=== PATIENT | female | born 1955 | race Caucasian/White ===

== ENCOUNTER 2019-01-11 14:57 | Inpatient (IN) | payer OTHER ==
[2019-01-11] MEDS ORDERED: SODIUM CHLORIDE 1,000 ML IV STA (15:11)
[2019-01-11] MEDS ORDERED: ONDANSETRON 4 MG/2 ML VIAL IVPUSH ONE (15:11)
--- NOTE | 2019-01-11 15:11 | PDOC ---
Rapid Medical Evaluation Time Seen by Provider: 01/11/19 15:08 Medical Evaluation: Allergies Allergy/AdvReac Type Severity Reaction Status Date / Time No Known Allergies Allergy Verified 05/31/13 01:09 01/11/19 15:09 CC: RLQ pain x "many months." Took ?abx without improvement. Sent BY PMD for admission PE: VSS. AF. Abd SNTND. Eating in triage. Orders: abd w/u Patient will proceed to ED for continued evaluation. Discharge Disposition - Diagnosis Abdominal pain - Referrals - Patient Instructions - Post Discharge Activity
[2019-01-11 15:12] VITALS: BMI 24.4
[2019-01-11] MEDS ORDERED: CEFTRIAXONE 1 GM in DEXTROSE 5%-WATER - 50 ML IVPB ONE ×2 (17:01→21:00)
[2019-01-11] MEDS ORDERED: ONDANSETRON 4 MG/2 ML VIAL ONE (17:06)
[2019-01-11] MEDS ORDERED: CEFTRIAXONE 1 GM/50 ML BAG ONE ×2 (17:07→21:45)
[2019-01-11 17:28] LABS: BASO % 0.6 % (0-2.0); EOS % 2.8 % (0-4.5); HEMATOCRIT 32.4 % (32.4-45.2); HEMOGLOBIN 11.2 GM/dL (10.7-15.3); LYMPH % 36.9 % (8-40); MCH 31.6 pg (25.7-33.7); MCHC 34.4 g/dl (32.0-36.0); MEAN CELL VOLUME 91.8 fl (80-96); MEAN PLT VOLUME 8.6 fl (7.5-11.1); MONO % 6.5 % (3.8-10.2); NEUT % 53.2 % (42.8-82.8); PLATELET COUNT 181 K/MM3 (134-434); RBC 3.53 M/mm3 (3.60-5.2); RDW 13.5 % (11.6-15.6); WHITE BLOOD COUNT 6.2 K/mm3 (4.0-10.0)
[2019-01-11 17:40] LABS: ALBUMIN 4.3 g/dl (3.4-5.0); BILIRUBIN,TOTAL 0.4 mg/dL (0.2-1); BLOOD UREA NITROGEN 27.8 mg/dL (7-18); CALCIUM 9.3 mg/dL (8.5-10.1); CREATININE 1.2 mg/dL (0.55-1.3); POTASSIUM 4.4 mmol/L (3.5-5.1); TOT PROT 7.7 g/dl (6.4-8.2)
--- NOTE | 2019-01-11 18:10 | PDOC ---
History of Present Illness - General Chief Complaint: Pain, Acute Stated Complaint: RT ABD PAIN Time Seen by Provider: 01/11/19 15:08 History Source: Patient Exam Limitations: No Limitations - History of Present Illness Travel History: No Initial Comments: 01/11/19 18:02 63-year-old female sent in by Dr. Iqbal for abdominal pain, recurrent UTIs, and dysuria for the past few weeks unrelieved with antibiotics. As per patient patient had urine cultures that show contamination and has had no relief of urinary symptoms. Patient states was told she has a hernia near her suprapubic incision secondary to a hysterectomy years ago but otherwise denies GI history. Timing/Duration: reports: intermittent Quality: reports: mild, moderate, cramping Abdominal Pain Onset Location: reports: suprapubic Pain Radiation: reports: RLQ, LLQ Activities at Onset: reports: none Aggravating Factors: improves with: None Alleviating Factors: improves with: None Past History - Travel Traveled outside of the country in the last 30 days: No Close contact w/someone who was outside of country & ill: No - Past Medical History Allergies/Adverse Reactions: Allergies Allergy/AdvReac Type Severity Reaction Status Date / Time No Known Allergies Allergy Verified 01/11/19 15:12 Home Medications: Ambulatory Orders Glyburide 5 mg PO BID 01/16/13 Meclizine HCl [Antivert -] 12.5 mg PO TID #10 tablet 01/16/13 Naproxen [Naprosyn] 500 mg PO BID PRN 01/16/13 Ramipril 5 mg PO DAILY 01/16/13 Simvastatin [Zocor] 20 mg PO HS 01/16/13 metFORMIN HCL [Glucophage] 1,000 mg PO BID 01/16/13 Hydrocodone Bit/Acetaminophen [Vicodin 5-300mg Tablet] 1 - 2 tab PO Q8H #15 tablet 05/31/13 Cardiac Disorders: Yes COPD: No Diabetes: Yes HTN: Yes Hypercholesterolemia: Yes - Surgical History Cholecystectomy: Yes - Suicide/Smoking/Psychosocial Hx Smoking Status: Yes Smoking History: Current every day smoker Have you smoked in the past 12 months: No Number of Cigarettes Smoked Daily: 15 Information on smoking cessation initiated: No Hx Alcohol Use: No Drug/Substance Use Hx: No Substance Use Type: None Patient Lives Alone: No Lives with/in: spouse/SO Review of Systems - Review of Systems Able to Perform ROS?: Yes Constitutional: No: Symptoms Reported HEENTM: No: Symptoms Reported Respiratory: No: Symptoms reported Cardiac (ROS): No: Symptoms Reported ABD/GI: Yes: Nausea, Abdominal cramping : Yes: Dysuria Musculoskeletal: No: Symptoms Reported Integumentary: No: Symptoms Reported Neurological: No: Symptoms reported Endocrine: No: Symptoms Reported Hematologic/Lymphatic: No: Symptoms Reported *Physical Exam - Vital Signs Last Vital Signs Temp Pulse Resp BP Pulse Ox 98.5 F 70 16 110/63 98 01/11/19 15:09 01/11/19 15:09 01/11/19 15:09 01/11/19 15:09 01/11/19 15:09 - Physical Exam General Appearance: Yes: Nourished, Appropriately Dressed. No: Apparent Distress HEENT: positive: EOMI, CARLEE. negative: Pale Conjunctivae Neck: positive: Supple Respiratory/Chest: positive: Lungs Clear, Normal Breath Sounds. negative: Respiratory Distress, Accessory Muscle Use Cardiovascular: positive: Regular Rhythm, Regular Rate. negative: Murmur Gastrointestinal/Abdominal: positive: Soft, Tenderness (right suprapubic right lower quadrant mid suprapubic and mild left lower quadrant) Musculoskeletal: negative: CVA Tenderness Extremity: positive: Normal Inspection Integumentary: positive: Normal Color, Warm, Moist Neurologic: positive: Motor Strength 5/5 (ambulatory) ED Treatment Course - LABORATORY CBC & Chemistry Diagram: 01/12/19 06:54 01/12/19 06:54 - ADDITIONAL ORDERS Additional order review: Laboratory Results 01/11/19 16:47 Sodium 139 Potassium 4.4 Chloride 108 H Carbon Dioxide 23 Anion Gap 8 BUN 27.8 H Creatinine 1.2 Est GFR (CKD-EPI)AfAm 54.92 Est GFR (CKD-EPI)NonAf 47.39 Random Glucose 153 H Calcium 9.3 Total Bilirubin 0.4 AST 21 ALT 23 Alkaline Phosphatase 57 Total Protein 7.7 Albumin 4.3 Lipase 299 01/11/19 16:47 RBC 3.53 L MCV 91.8 MCHC 34.4 RDW 13.5 MPV 8.6 Neutrophils % 53.2 D Lymphocytes % 36.9 D Monocytes % 6.5 Eosinophils % 2.8 D Basophils % 0.6 - RADIOLOGY Radiology Studies Ordered: Category Date Time Status ABDOMEN & PELVIS CT W/O CONTR [CT] Stat CT Scan 01/11/19 17:26 Ordered PELVIC / BLADDER US [US] Stat Ultrasound 01/11/19 16:59 Ordered Medical Decision Making - Medical Decision Making 01/11/19 17:06 Chief complaint: Recurrent UTI with suprapubic pain and mild dysuria sent in from PCP for workup/admission and imaging Exam: Lower abdominal tenderness greater in the mid suprapubic right lower quadrant and left lower quadrant. No CVA tenderness vital signs stable Plan: Labs, urine, IV ceftriaxone, urine culture, pelvic ultrasound and abdominal CT ordered 01/11/19 18:11 Laboratory Tests 01/11/19 01/11/19 16:47 16:47 WBC 6.2 Hgb 11.2 Hct 32.4 D Neutrophils % 53.2 D Sodium 139 Potassium 4.4 Chloride 108 H Carbon Dioxide 23 Anion Gap 8 BUN 27.8 H Creatinine 1.2 Random Glucose 153 H AST 21 ALT 23 Lipase 299 Spoke to and is aware of patient's ED arrival and plan. Awaiting UA collection and imaging 01/11/19 19:02 Ultrasound shows no obvious free intraperitoneal fluid within the lower pelvis. Evaluation was limited on ultrasound since patient was unable to maintain a distended urinary bladder. *DC/Admit/Observation/Transfer Diagnosis at time of Disposition: Hydronephrosis, right, MDRO (multiple drug resistant organisms) resistance, UTI (urinary tract infection) Abdominal pain Qualifiers: Abdominal location: unspecified location Qualified Code(s): R10.9 - Unspecified abdominal pain - Referrals - Patient Instructions - Post Discharge Activity
[2019-01-11] MEDS ORDERED: KETOROLAC TROMETHAMINE 30 MG/1 ML VIAL IVPUSH ONE (18:11)
[2019-01-11] MEDS ORDERED: KETOROLAC TROMETHAMINE 30 MG/1 ML VIAL ONE (18:13)
[2019-01-11 20:09] LABS: EPI CELLS 3.4 /HPF (0-5/HPF); HYALINE CASTS 5 /lpf (0-8); URINE APPEARANCE CLOUDY; URINE BILIRUBIN NEGATIVE (NEGATIVE); URINE COLOR YELLOW; URINE GLUCOSE (UA) NEGATIVE (NEGATIVE); URINE KETONE NEGATIVE (NEGATIVE); URINE LEUK ESTERASE 1+ (NEGATIVE); URINE NITRITE NEGATIVE (NEGATIVE); URINE PROTEIN TRACE (NEGATIVE); URINE RBC 299 /hpf (0-4); URINE UROBILINOGEN 0.2 mg/dL (0.2-1.0); URINE WBC 14 /hpf (0-5)
--- NOTE | 2019-01-11 20:22 | PDOC ---
*Physical Exam - Vital Signs Last Vital Signs Temp Pulse Resp BP Pulse Ox 98.6 F 60 20 130/88 99 01/11/19 19:52 01/11/19 19:52 01/11/19 19:52 01/11/19 19:52 01/11/19 19:52 - Physical Exam General Appearance: Yes: Appropriately Dressed ED Treatment Course - LABORATORY CBC & Chemistry Diagram: 01/11/19 16:47 01/11/19 16:47 - ADDITIONAL ORDERS Additional order review: Laboratory Results 01/11/19 01/11/19 19:32 16:47 Sodium 139 Potassium 4.4 Chloride 108 H Carbon Dioxide 23 Anion Gap 8 BUN 27.8 H Creatinine 1.2 Est GFR (CKD-EPI)AfAm 54.92 Est GFR (CKD-EPI)NonAf 47.39 Random Glucose 153 H Calcium 9.3 Total Bilirubin 0.4 AST 21 ALT 23 Alkaline Phosphatase 57 Total Protein 7.7 Albumin 4.3 Lipase 299 Urine Color Yellow Urine Appearance Cloudy Urine pH 5.0 Ur Specific [place] 1.016 Urine Protein Trace Urine Glucose (UA) Negative Urine Ketones Negative Urine Blood 3+ H Urine Nitrite Negative Urine Bilirubin Negative Urine Urobilinogen 0.2 Ur Leukocyte Esterase 1+ H Urine WBC (Auto) 14 Urine RBC (Auto) 299 Urine Casts (Auto) 5 U Epithel Cells (Auto) 3.4 Urine Bacteria (Auto) 1.0 01/11/19 16:47 RBC 3.53 L MCV 91.8 MCHC 34.4 RDW 13.5 MPV 8.6 Neutrophils % 53.2 D Lymphocytes % 36.9 D Monocytes % 6.5 Eosinophils % 2.8 D Basophils % 0.6 - Medications Given in the ED: ED Medications Discontinued Medications Generic Name Dose Route Start Last Admin Trade Name Freq PRN Reason Stop Dose Admin Sodium Chloride 1,000 mls @ 1,000 mls/hr 01/11/19 15:11 01/11/19 18:15 Normal Saline - IV 01/11/19 16:10 1,000 mls/hr ASDIR STA Administration Ceftriaxone Sodium 1 gm/ 50 mls @ 100 mls/hr 01/11/19 17:01 01/11/19 18:15 Dextrose IVPB 01/11/19 17:30 100 mls/hr ONCE ONE Administration Ketorolac Tromethamine 30 mg 01/11/19 18:11 01/11/19 18:15 Toradol Injection - IVPUSH 01/11/19 18:12 30 mg ONCE ONE Administration Ondansetron HCl 4 mg 01/11/19 15:11 01/11/19 18:15 Zofran Injection IVPUSH 01/11/19 15:12 4 mg ONCE ONE Administration Medical Decision Making - Medical Decision Making 01/11/19 20:14 A: right hydronephrosis. 01/11/19 20:[address] Iqbal PCP . recommends admitting for MDR UTI, hydronephrosis. needs iD and urology consult. patient signed out to Marline CORTÉS *DC/Admit/Observation/Transfer Diagnosis at time of Disposition: Hydronephrosis, right, MDRO (multiple drug resistant organisms) resistance Abdominal pain Qualifiers: Abdominal location: unspecified location Qualified Code(s): R10.9 - Unspecified abdominal pain UTI (urinary tract infection) Qualifiers: Urinary tract infection type: acute cystitis Hematuria presence: with hematuria Qualified Code(s): N30.01 - Acute cystitis with hematuria - Discharge Dispostion Decision to Admit order: Yes - Referrals - Patient Instructions - Post Discharge Activity
--- NOTE | 2019-01-11 21:28 | HP ---
CHIEF COMPLAINT: suprapubic pain and burning on urination PCP:Dr. Diego HISTORY OF PRESENT ILLNESS: 63 year old female with history of diabetes mellitus(on oral hypoglycemics), hypertension and frequent UTI's with multiple drug resistant to organisms who was seen by Dr. Diego today for suprapubic pain and burning on urination. She denied fever, chest pain or shortness of breath. She was referred to the ER. UA showed cloudy urine, 1+ leukoesterase, 3+ blood, and negative nitrite. Urine and blood cultures pending. She is currently afebrile and blood pressure is normotensive. CT scan of abdomen demonstrated hydronephrosis. Labs notable for a normal WBC and renal studies. She received 1 gm of IV Ceftriaxone and reported symptoms have improved. She is being admitted for further medical management with consultations made to Urology and Infectious Diseases. Recent Travel:denies PAST MEDICAL HISTORY: diabetes mellitus hypertension frequent UTI's with MDR PAST SURGICAL HISTORY: none Social History: Smoking:no Alcohol:no Drugs:no Family History: noncontributory Allergies No Known Allergies Allergy (Verified 01/11/19 15:12) HOME MEDICATIONS: Home Medications Medication Instructions Recorded Glyburide 5 mg PO BID 01/16/13 Meclizine HCl [Antivert -] 12.5 mg PO TID #10 tablet 01/16/13 Naproxen [Naprosyn] 500 mg PO BID PRN 01/16/13 Ramipril 5 mg PO DAILY 01/16/13 Simvastatin [Zocor] 20 mg PO HS 01/16/13 metFORMIN HCL [Glucophage] 1,000 mg PO BID 01/16/13 Hydrocodone Bit/Acetaminophen 1 - 2 tab PO Q8H #15 tablet 05/31/13 [Vicodin 5-300mg Tablet] REVIEW OF SYSTEMS CONSTITUTIONAL: Absent: fever, chills, diaphoresis, generalized weakness, malaise, loss of appetite, weight change HEENT: Absent: rhinorrhea, nasal congestion, throat pain, throat swelling, difficulty swallowing, mouth swelling, ear pain, eye pain, visual changes CARDIOVASCULAR: Absent: chest pain, syncope, palpitations, irregular heart rate, lightheadedness , peripheral edema RESPIRATORY: Absent: cough, shortness of breath, dyspnea with exertion, orthopnea, wheezing, stridor, hemoptysis GASTROINTESTINAL: Absent: abdominal pain, abdominal distension, nausea, vomiting, diarrhea, constipation, melena, hematochezia GENITOURINARY: Absent: dysuria, suprapubic pain, frequency, urgency, hesitancy, hematuria, flank pain, genital pain MUSCULOSKELETAL: Absent: myalgia, arthralgia, joint swelling, back pain, neck pain SKIN: Absent: rash, itching, pallor HEMATOLOGIC/IMMUNOLOGIC: Absent: easy bleeding, easy bruising, lymphadenopathy, frequent infections ENDOCRINE: Absent: unexplained weight gain, unexplained weight loss, heat intolerance, cold intolerance NEUROLOGIC: Absent: headache, focal weakness or paresthesias, dizziness, unsteady gait, seizure, mental status changes, bladder or bowel incontinence PSYCHIATRIC: Absent: anxiety, depression, suicidal or homicidal ideation, hallucinations. PHYSICAL EXAMINATION Vital Signs - 24 hr 01/11/19 01/11/19 15:09 19:52 Temperature 98.5 F 98.6 F Pulse Rate 70 Pulse Rate [ 60 Left Radial] Respiratory 16 20 Rate Blood Pressure 110/63 Blood Pressure 130/88 [Left Arm] O2 Sat by Pulse 98 99 Oximetry (%) GENERAL: awake alert and fully oriented no acute distress HEAD: normal EYES: pupils equal round and reactive to light extraocular movements intact EARS, NOSE, THROAT: ears normal nares patent oropharynx clear without exudates moist mucous membranes NECK: Normal range of motion, supple without lymphadenopathy, JVD, or masses. LUNGS: breath sounds equal and clear to auscultation bilaterally no wheezes and no crackles no accessory muscle use HEART: regular rate and rhythm normal S1 and S2 ABDOMEN: soft nontender,not distended, normoactive bowel sounds MUSCULOSKELETAL: normal range of motion at all joints. No bony deformities or tenderness. no CVA tenderness UPPER EXTREMITIES: 2+ pulses warm well-perfused no cyanosis no peripheral edema LOWER EXTREMITIES: 2+ pulses warm well-perfused no peripheral edema. NEUROLOGICAL: normal speech PSYCHIATRIC: cooperative good eye contact appropriate mood and affect SKIN: warm dry normal turgor no rashes raised lesion to midsternum noted normal capillary refill Laboratory Results - last 24 hr 01/11/19 01/11/19 01/11/19 16:47 16:47 19:32 WBC 6.2 RBC 3.53 L Hgb 11.2 Hct 32.4 D MCV 91.8 MCH 31.6 MCHC 34.4 RDW 13.5 Plt Count 181 MPV 8.6 Absolute Neuts (auto) 3.3 Neutrophils % 53.2 D Lymphocytes % 36.9 D Monocytes % 6.5 Eosinophils % 2.8 D Basophils % 0.6 Nucleated RBC % 0 Sodium 139 Potassium 4.4 Chloride 108 H Carbon Dioxide 23 Anion Gap 8 BUN 27.8 H Creatinine 1.2 Est GFR (CKD-EPI)AfAm 54.92 Est GFR (CKD-EPI)NonAf 47.39 Random Glucose 153 H Calcium 9.3 Total Bilirubin 0.4 AST 21 ALT 23 Alkaline Phosphatase 57 Total Protein 7.7 Albumin 4.3 Lipase 299 Urine Color Yellow Urine Appearance Cloudy Urine pH 5.0 Ur Specific [place] 1.016 Urine Protein Trace Urine Glucose (UA) Negative Urine Ketones Negative Urine Blood 3+ H Urine Nitrite Negative Urine Bilirubin Negative Urine Urobilinogen 0.2 Ur Leukocyte Esterase 1+ H Urine WBC (Auto) 14 Urine RBC (Auto) 299 Urine Casts (Auto) 5 U Epithel Cells (Auto) 3.4 Urine Bacteria (Auto) 1.0 ASSESSMENT/PLAN: 63 year old female with history of diabetes mellitus, hypertension and frequent UTI's with multiple drug resistant to organisms who presents with suprapubic pain and burning on urination. #1 Symptomatic UTI Workup- UA showed 1+ leukoesterase, 3+ blood, and negative nitrite. Urine and blood cultures pending. She is currently afebrile and blood pressure is normotensive. CT scan of abdomen demonstrated hydronephrosis. Labs notable for a normal WBC and renal studies. She received 1 gm of IV Ceftriaxone and reported symptoms have improved. Continue with IV Ceftriaxone Infectious Disease consulted- Dr. Schneider Urology consulted- Dr. Smooth Holly #2 Hypertension Controlled Continue with ramipril #3 Diabetes Mellitus Accucheks before meals and at bedtime Continue with glipizide and metformin DVT low risk as patient is ambulatory add lovenox 30 mg daily for DVT prophylaxis FEN ADA, low sodium diet Visit type - Emergency Visit Emergency Visit: Yes ED Registration Date: 01/11/19 Care time: The patient presented to the Emergency Department on the above date and was hospitalized for further evaluation of their emergent condition. - New Patient This patient is new to me today: Yes Date on this admission: 01/11/19 - Critical Care Critical Care patient: No
[2019-01-11] MEDS ORDERED: MECLIZINE HCL 12.5 MG TABLET ONE (21:44)
[2019-01-11] MEDS ORDERED: ATORVASTATIN CA 10 MG TABLET (FP) ONE (21:45)
[2019-01-11] MEDS: ATORVASTATIN CA 10 MG TABLET (FP) PO SCH (22:05)
[2019-01-11] MEDS: MECLIZINE HCL 12.5 MG TABLET PO SCH (22:11)
[2019-01-11] MEDS ORDERED: ENOXAPARIN NA (PORCINE) 40 MG/0.4 ML DISP.SYRIN SQ ONE (23:20)
[2019-01-11] MEDS: ENOXAPARIN NA (PORCINE) 40 MG/0.4 ML DISP.SYRIN SQ SCH (23:20)
[2019-01-12] MEDS: MECLIZINE HCL 12.5 MG TABLET PO SCH ×3 (06:18→22:23)
[2019-01-12 07:55] LABS: BLOOD UREA NITROGEN 24.3 mg/dL (7-18); CALCIUM 8.9 mg/dL (8.5-10.1); HEMATOCRIT 27.4 % (32.4-45.2); HEMOGLOBIN 9.5 GM/dL (10.7-15.3); MCH 31.8 pg (25.7-33.7); MCHC 34.7 g/dl (32.0-36.0); MEAN CELL VOLUME 91.7 fl (80-96); MEAN PLT VOLUME 8.8 fl (7.5-11.1); PLATELET COUNT 139 K/MM3 (134-434); POTASSIUM 4.2 mmol/L (3.5-5.1); RBC 2.99 M/mm3 (3.60-5.2); RDW 13.3 % (11.6-15.6); WHITE BLOOD COUNT 4.3 K/mm3 (4.0-10.0)
[2019-01-12] MEDS: ENOXAPARIN NA (PORCINE) 40 MG/0.4 ML DISP.SYRIN SQ SCH (10:31)
[2019-01-12] MEDS: glyBURIDE 5 MG TABLET (UD) PO SCH ×2 (10:32→17:48)
[2019-01-12] MEDS: RAMIPRIL 5 MG CAPSULE (FP) PO SCH (10:33)
[2019-01-12] MEDS: metFORMIN HCL 500 MG TABLET (FP) PO SCH ×2 (10:33→17:48)
--- NOTE | 2019-01-12 14:51 | PN ---
Progress Note, Physician Chief Complaint: UTI Right Hydroureteronephrosis History of Present Illness: Previous notes and events reviewed awake and alert NAD complain of dysuria sts having suprapubic pain but is improving - Current Medication List Current Medications: Active Medications Atorvastatin Calcium (Lipitor -) 10 mg PO HS [facility] Last Admin: 01/11/19 22:05 Dose: 10 mg Enoxaparin Sodium (Lovenox -) 40 mg SQ DAILY [facility] Last Admin: 01/12/19 10:31 Dose: 40 mg Glyburide (Diabeta -) 5 mg PO BIDI [facility] Last Admin: 01/12/19 10:32 Dose: 5 mg Meclizine HCl (Antivert -) 12.5 mg PO TID [facility] Last Admin: 01/12/19 13:40 Dose: Not Given Metformin HCl (Glucophage -) 1,000 mg PO BIDI [facility] Last Admin: 01/12/19 10:33 Dose: 1,000 mg Ramipril (Altace -) 5 mg PO DAILY [facility] Last Admin: 01/12/19 10:33 Dose: 5 mg - Objective Vital Signs: Vital Signs Temperature 98.1 F 01/12/19 13:35 Pulse Rate 65 01/12/19 13:35 Respiratory Rate 20 01/12/19 13:35 Blood Pressure 118/56 L 01/12/19 13:35 O2 Sat by Pulse Oximetry (%) 98 01/12/19 13:35 Constitutional: Yes: No Distress, Calm Eyes: Yes: Conjunctiva Clear HENT: Yes: Atraumatic Cardiovascular: Yes: Regular Rate and Rhythm Respiratory: Yes: Regular, CTA Bilaterally Gastrointestinal: Yes: Normal Bowel Sounds, Soft Genitourinary: Yes: CVA Tenderness - Right Musculoskeletal: Yes: WNL Extremities: Yes: WNL Edema: No Neurological: Yes: Alert, Oriented Psychiatric: Yes: Alert, Oriented Labs: CBC, BMP 01/12/19 06:54 01/12/19 06:54 Problem List - Problems (1) Hydronephrosis, right Assessment/Plan: -Abdomen/Pelvic CT scan shows mild right hydroureteonephrosisis noted to the level of the urinary bladder, 0.4 x 0.2 cm calcific density seen in the approximate region of the vesicourethral junction representingurinary tract calculus versus soft tissue calcification, 6 x 4 x 2cm mildly thick walled fluid structurenoted interposed between the urinary bladder and rectumwhich may represent postsurgical fluid collection followinghysterectomy versus possibleatrophic uteruswith endometrial canal fluid accumulation -Urology consult -BUN/Cr 24.3/1.0 Code(s): N13.30 - UNSPECIFIED HYDRONEPHROSIS (2) UTI (urinary tract infection) Assessment/Plan: -ID on board -Ceftriaxone -no leukocytosis -afebrile -UC pending -UA shows 1+ leuks, 3+ blood -Urology consult Code(s): N39.0 - URINARY TRACT INFECTION, SITE NOT SPECIFIED Qualifiers: Urinary tract infection type: acute cystitis Hematuria presence: with hematuria Qualified Code(s): N30.01 - Acute cystitis with hematuria Assessment/Plan see problem list dvt ppx
[2019-01-12] MEDS ORDERED: PNEUMOC 13-VAL CONJ-DIP CRM/PF 0.5 ML DISP.SYRIN IM ONE (15:47)
--- NOTE | 2019-01-12 16:16 | EKG ---
Test Reason : Blood Pressure : / mmHG Vent. Rate : 066 BPM Atrial Rate : 066 BPM P-R Int : 146 ms QRS Dur : 072 ms QT Int : 422 ms P-R-T Axes : 050 -33 000 degrees QTc Int : 442 ms NORMAL SINUS RHYTHM LEFT AXIS DEVIATION MINIMAL VOLTAGE CRITERIA FOR LVH, MAY BE NORMAL VARIANT ABNORMAL ECG WHEN COMPARED WITH ECG OF 16-JAN-2013 10:39, NO SIGNIFICANT CHANGE WAS FOUND Confirmed by MD MALDONADO, AUDREY ([id number]) on 01/12/2019 4:15:52 PM Referred By: Confirmed By:AUDREY OKEEFE MD
--- NOTE | 2019-01-12 16:19 | PN ---
Progress Note (short form) - Note Progress Note: ID CONSULT DICTATED RECURRENT UTI HYDRONEPHROSIS R/O OBSTRUCTIVE UROPATHY AWAIT C/S EMPIRIC CEFTRIAXONE
[2019-01-12] MEDS ORDERED: DEXTROSE 5%-WATER 100 ML IVPB ONE (17:38)
[2019-01-12] MEDS: CEFTRIAXONE 2 GM in DEXTROSE 5%-WATER 100 ML IVPB SCH (17:47)
--- NOTE | 2019-01-12 19:57 | CONS ---
DATE OF CONSULTATION: DATE OF DICTATION: 01/12/2019 INFECTIOUS DISEASE CONSULTATION HISTORY OF PRESENT ILLNESS: The patient is a 63-year-old female evaluated for recurrent urinary tract infection. Patient reports a long history of urinary tract infection dating back several months. She complains of chronic suprapubic pain on urination. She was recently seen as an outpatient and was prescribed an oral antibiotic without significant improvement. She reports that the oral medications were not effective in treating her urinary tract infection; however, she was not able to elaborate. She was unaware of any history of multidrug resistant organisms in the urine. She denies any associated fever or chills. The patient denies dysuria or hematuria, rather complains of suprapubic pain on micturition. She was admitted to the hospital where urinalysis shows pyuria and microscopic hematuria. CAT scan of the abdomen and pelvis shows a right hydronephrosis. PAST MEDICAL HISTORY: Positive for recurrent urinary tract infections, diabetes mellitus, hypertension, hyperlipidemia. PAST SURGICAL HISTORY: Status post cholecystectomy and hysterectomy. ALLERGIES: No known allergies. MEDICATION: Ceftriaxone, Lipitor, Lovenox, DiaBeta, Antivert, Altace. SOCIAL HISTORY: Patient resides in the community. Positive history of tobacco use. LABORATORY DATA: White count 4.3, hematocrit 27.4, platelets 139, creatinine 1.0. Urinalysis 14 white cells, 299 red cells. PHYSICAL EXAMINATION: General: On exam, the patient is awake and alert, in no acute distress. Vital signs: Temperature 98.6, blood pressure 118/60, pulse 67 regular, respirations 18 per minute. HEENT: Sclerae anicteric. Cardiovascular: Heart sounds S1, S2. Lungs: Clear. Abdomen: Soft. There is suprapubic tenderness to palpation. No CVA tenderness. Extremities: Negative for edema. IMPRESSION: 1. Recurrent urinary tract infection. 2. Hydronephrosis, unclear etiology. 3. Microscopic hematuria. Await culture results. Empiric ceftriaxone 2 g IV piggyback daily. Urology evaluation. Further recommendations pending cultures. Thank you for the kind referral. LIONEL BLANCO M.D. [id number]
[2019-01-12] MEDS ORDERED: MORPHINE SULFATE 2 MG/ML VIAL IVPUSH ONE (21:52)
[2019-01-12] MEDS ORDERED: ONDANSETRON 4 MG/2 ML VIAL IVPUSH PRN (21:53)
[2019-01-12] MEDS: ATORVASTATIN CA 10 MG TABLET (FP) PO SCH (22:22)
[2019-01-13] MEDS ORDERED: ACETAMINOPHEN 1000 MG/100 ML VIAL (NON FORMULARY) IVPB ONE (02:02)
[2019-01-13] MEDS: metFORMIN HCL 500 MG TABLET (FP) PO SCH ×2 (06:02→17:01)
[2019-01-13] MEDS: MECLIZINE HCL 12.5 MG TABLET PO SCH ×3 (06:02→21:56)
[2019-01-13] MEDS: glyBURIDE 5 MG TABLET (UD) PO SCH ×2 (06:02→17:01)
[2019-01-13 07:51] LABS: HEMATOCRIT 28.2 % (32.4-45.2); HEMOGLOBIN 9.8 GM/dL (10.7-15.3); MCH 31.5 pg (25.7-33.7); MCHC 34.6 g/dl (32.0-36.0); MEAN CELL VOLUME 91.1 fl (80-96); MEAN PLT VOLUME 8.3 fl (7.5-11.1); PLATELET COUNT 145 K/MM3 (134-434); RBC 3.09 M/mm3 (3.60-5.2); RDW 13.4 % (11.6-15.6); WHITE BLOOD COUNT 5.1 K/mm3 (4.0-10.0)
[2019-01-13 08:32] LABS: ALBUMIN 3.5 g/dl (3.4-5.0); BILIRUBIN,TOTAL 0.3 mg/dL (0.2-1); BLOOD UREA NITROGEN 23.4 mg/dL (7-18); CALCIUM 9.1 mg/dL (8.5-10.1); CREATININE 0.9 mg/dL (0.55-1.3); POTASSIUM 4.1 mmol/L (3.5-5.1); TOT PROT 6.4 g/dl (6.4-8.2)
--- NOTE | 2019-01-13 09:06 | PN ---
Progress Note, Physician Chief Complaint: AWAKE ALERT NO FEVERS C/O RLQ ABDOMINAL PAIN - Current Medication List Current Medications: Active Medications Atorvastatin Calcium (Lipitor -) 10 mg PO HS [facility] Last Admin: 01/12/19 22:22 Dose: 10 mg Enoxaparin Sodium (Lovenox -) 40 mg SQ DAILY [facility] Last Admin: 01/12/19 10:31 Dose: 40 mg Glyburide (Diabeta -) 5 mg PO BIDI [facility] Last Admin: 01/13/19 06:02 Dose: Not Given Ceftriaxone Sodium 2 gm/ (Dextrose) 100 mls @ 200 mls/hr IVPB DAILY [facility]; Protocol Last Admin: 01/12/19 17:47 Dose: 200 mls/hr Meclizine HCl (Antivert -) 12.5 mg PO TID [facility] Last Admin: 01/13/19 06:02 Dose: Not Given Metformin HCl (Glucophage -) 1,000 mg PO BIDI [facility] Last Admin: 01/13/19 06:02 Dose: Not Given Ondansetron HCl (Zofran Injection) 4 mg IVPUSH Q6H PRN PRN Reason: NAUSEA AND/OR VOMITING Ramipril (Altace -) 5 mg PO DAILY [facility] Last Admin: 01/12/19 10:33 Dose: 5 mg - Objective Vital Signs: Vital Signs Temperature 97.9 F 01/13/19 06:14 Pulse Rate 54 L 01/13/19 06:14 Respiratory Rate 18 01/13/19 06:14 Blood Pressure 100/57 L 01/13/19 06:14 O2 Sat by Pulse Oximetry (%) 98 01/12/19 21:00 Constitutional: Yes: Mild Distress Cardiovascular: Yes: Regular Rate and Rhythm Respiratory: Yes: WNL Gastrointestinal: Yes: Tenderness (RLQ) Genitourinary: Yes: Other Musculoskeletal: Yes: Back Pain Edema: No Peripheral Pulses WNL: Yes Integumentary: Yes: WNL Wound/Incision: Yes: Clean/Dry Neurological: Yes: WNL ...Motor Strength: WNL Psychiatric: Yes: WNL Labs: CBC, BMP 01/13/19 06:48 01/13/19 06:48 Problem List - Problems (1) Abdominal pain Code(s): R10.9 - UNSPECIFIED ABDOMINAL PAIN Qualifiers: Abdominal location: unspecified location Qualified Code(s): R10.9 - Unspecified abdominal pain (2) Hydronephrosis, right Code(s): N13.30 - UNSPECIFIED HYDRONEPHROSIS (3) MDRO (multiple drug resistant organisms) resistance Code(s): Z16.35 - RESISTANCE TO MULTIPLE ANTIMICROBIAL DRUGS (4) UTI (urinary tract infection) Code(s): N39.0 - URINARY TRACT INFECTION, SITE NOT SPECIFIED Qualifiers: Urinary tract infection type: acute cystitis Hematuria presence: with hematuria Qualified Code(s): N30.01 - Acute cystitis with hematuria Assessment/Plan IV CEFTRIAXONE F/U CULTURES UROLOGY CONSULT PENDING PAIN CONTROL ZOLOFT DAILY START 25MG
[2019-01-13] MEDS ORDERED: DEXTROSE 5%-NORMAL SALINE 1,000 ML IV SCH (09:15)
[2019-01-13] MEDS ORDERED: morphine SULFATE 4 MG/ML VIAL IVPUSH PRN (09:17)
[2019-01-13] MEDS: RAMIPRIL 5 MG CAPSULE (FP) PO SCH (10:26)
[2019-01-13] MEDS: ENOXAPARIN NA (PORCINE) 40 MG/0.4 ML DISP.SYRIN SQ SCH (10:27)
[2019-01-13] MEDS ORDERED: DEXTROSE 5%-WATER 100 ML IVPB ONE ×2 (10:28→10:34)
[2019-01-13] MEDS: CEFTRIAXONE 2 GM in DEXTROSE 5%-WATER 100 ML IVPB SCH (10:35)
[2019-01-13] MEDS ORDERED: ACETAMINOPHEN 1000 MG/100 ML VIAL (NON FORMULARY) IVPB PRN (10:44)
[2019-01-13] MEDS ORDERED: TAMSULOSIN HCL 0.4 MG CAP PO ONE (11:15)
--- NOTE | 2019-01-13 11:50 | PN ---
Progress Note, Physician History of Present Illness: C/O SUPRAPUBIC PAIN WITH MICURATION NO FLANK PAIN NO FEVER/ CHILLS AFEBRILE WBC WNL BC (-) URINE C/S / ENTEROCOCCUS - Current Medication List Current Medications: Active Medications Acetaminophen (Ofirmev Injection -) 1,000 mg IVPB Q6H PRN PRN Reason: PAIN LEVEL 6-10 Atorvastatin Calcium (Lipitor -) 10 mg PO HS [facility] Last Admin: 01/12/19 22:22 Dose: 10 mg Enoxaparin Sodium (Lovenox -) 40 mg SQ DAILY [facility] Last Admin: 01/13/19 10:27 Dose: Not Given Glyburide (Diabeta -) 5 mg PO BIDI [facility] Last Admin: 01/13/19 06:02 Dose: Not Given Ceftriaxone Sodium 2 gm/ (Dextrose) 100 mls @ 200 mls/hr IVPB DAILY [facility]; Protocol Last Admin: 01/13/19 10:35 Dose: 200 mls/hr Dextrose/Sodium Chloride (D5-Ns -) 1,000 mls @ 100 mls/hr IV ASDIR [facility] Last Admin: 01/13/19 09:46 Dose: Not Given Ketorolac Tromethamine (Toradol Injection -) 30 mg IVPUSH Q6H PRN PRN Reason: PAIN LEVEL 1-5 Stop: 01/18/19 10:43 Meclizine HCl (Antivert -) 12.5 mg PO TID [facility] Last Admin: 01/13/19 06:02 Dose: Not Given Metformin HCl (Glucophage -) 1,000 mg PO BIDI [facility] Last Admin: 01/13/19 06:02 Dose: Not Given Ondansetron HCl (Zofran Injection) 4 mg IVPUSH Q6H PRN PRN Reason: NAUSEA AND/OR VOMITING Ramipril (Altace -) 5 mg PO DAILY [facility] Last Admin: 01/13/19 10:26 Dose: Not Given - Objective Vital Signs: Vital Signs Temperature 98.9 F 01/13/19 09:00 Pulse Rate 54 L 01/13/19 09:00 Respiratory Rate 18 01/13/19 09:00 Blood Pressure 123/63 01/13/19 09:00 O2 Sat by Pulse Oximetry (%) 98 01/13/19 09:00 Constitutional: Yes: No Distress Eyes: Yes: Conjunctiva Clear Cardiovascular: Yes: Regular Rate and Rhythm, S1, S2 Respiratory: Yes: CTA Bilaterally Gastrointestinal: Yes: Normal Bowel Sounds, Soft. No: Tenderness Genitourinary: Yes: Other (+ SUPRPUBIC TENDERNESS). No: CVA Tenderness - Left, CVA Tenderness - Right Labs: CBC, BMP 01/13/19 06:48 01/13/19 06:48 Assessment/Plan RECURRENT UTI HN ? NEPHROLITHIASIS FOR CYSTO SUBSTITUE VANCOMYCIN
--- NOTE | 2019-01-13 15:30 | CONS ---
DATE OF CONSULTATION: DATE OF DICTATION: 01/13/2019 HISTORY OF PRESENT ILLNESS: Patient is a 63-year-old female admitted via the emergency room on January 11, 2019 with acute concept of right flank pain. The patient does have a history of diabetes, as well as hypertension. She does also have a history of frequent and recurrent urinary tract infections. She presently denied any fever, chest pain or shortness of breath. Her urine revealed a large amount of blood, but negative nitrites. A CAT scan of the abdomen in the emergency room revealed a right-sided hydroureteronephrosis secondary to a 2 x 4 cm right UVJ stone. There was also a 6 x 4 x 2 cm thick-walled fluid structure interposed between the urinary bladder and the rectum. This may represent post-surgical fluid collection following a hysterectomy, versus a possible atrophic uterus with endometrial canal fluid accumulation. Comparison with prior imaging study will be helpful. Patient is status post cholecystectomy. Also found was a 0.9 cm left adrenal nodule, which most likely is an adenoma, but a biochemical evaluation is suggested. The patient presently is complaining of right flank pain. The pain is sharp and colicky in nature. It radiates to the right lower quadrant and right groin. There is no hepatosplenomegaly. The left flank is nontender. Patient denies ethanol or tobacco use. MEDICATIONS: She is on multiple medications including glyburide, Antivert, Naprosyn, ramipril, Zocor, Glucophage and Vicodin for chronic myalgia. The patient's temperature in the emergency room was 99.6, blood pressure 110/63, pulse oximetry 98. The white count on admission is 6.2. Hemoglobin was 11.2, hematocrit 32.4 and her urinalysis revealed 3+ blood, negative nitrite. Her BUN was 27 and creatinine 1.1 respectively. IMPRESSION: At present is: 1. Right hydroureteronephrosis due to a 4-mm right ureterovesical junction stone. 2. A history of hypertension. 3. Diabetes. 4. Recurrent urinary tract infection. RECOMMENDATIONS: Will recommend increasing p.o. fluids, encourage on ambulation, straining patient's urine, adding an alpha-rose to her medical management with Flomax 0.4 mg daily and repeating a renal and pelvic ultrasound in the a.m. Will follow with you. Eliana [id number]
[2019-01-13] MEDS: VANCOMYCIN 1 GRAM (PRE-DOCKED) 1,000 MG/250 ML BAG IVPB SCH (15:37)
[2019-01-13] MEDS: KETOROLAC TROMETHAMINE 30 MG/1 ML VIAL IVPUSH PRN ×2 (16:12→21:46)
[2019-01-13] MEDS: ATORVASTATIN CA 10 MG TABLET (FP) PO SCH (21:47)
[2019-01-13] MEDS ORDERED: PT OWN MED DRAWER 7, Y5N ONE (22:18)
[2019-01-13] MEDS: SODIUM CHLORIDE 1,000 ML IV SCH (22:41)
[2019-01-14] MEDS: VANCOMYCIN 1 GRAM (PRE-DOCKED) 1,000 MG/250 ML BAG IVPB SCH ×2 (00:46→12:54)
[2019-01-14] MEDS ORDERED: SENNOSIDES 8.6MG TABLET (FP) PO PRN (03:00)
[2019-01-14] MEDS: MECLIZINE HCL 12.5 MG TABLET PO SCH ×3 (06:20→22:11)
[2019-01-14] MEDS: metFORMIN HCL 500 MG TABLET (FP) PO SCH ×3 (06:21→17:25)
[2019-01-14] MEDS: glyBURIDE 5 MG TABLET (UD) PO SCH ×3 (06:21→17:26)
[2019-01-14] MEDS ORDERED: PT OWN MED DRAWER 7, Y5N ONE (09:13)
[2019-01-14] MEDS: RAMIPRIL 5 MG CAPSULE (FP) PO SCH (09:23)
[2019-01-14] MEDS: ENOXAPARIN NA (PORCINE) 40 MG/0.4 ML DISP.SYRIN SQ SCH ×2 (09:23→09:35)
[2019-01-14] MEDS: KETOROLAC TROMETHAMINE 30 MG/1 ML VIAL IVPUSH PRN (09:28)
--- NOTE | 2019-01-14 15:10 | PN ---
Progress Note, Physician Chief Complaint: patient seen and examined complaining of suprapubic pain - Current Medication List Current Medications: Active Medications Acetaminophen (Ofirmev Injection -) 1,000 mg IVPB Q6H PRN PRN Reason: PAIN LEVEL 6-10 Atorvastatin Calcium (Lipitor -) 10 mg PO HS [facility] Last Admin: 01/13/19 21:47 Dose: 10 mg Enoxaparin Sodium (Lovenox -) 40 mg SQ DAILY [facility] Last Admin: 01/14/19 09:35 Dose: Not Given Glyburide (Diabeta -) 5 mg PO BIDI [facility] Last Admin: 01/14/19 09:22 Dose: 5 mg Vancomycin HCl (Vancomycin (Pre-Docked)) 1,000 mg in 250 mls @ 166.667 mls/hr IVPB Q12H [facility]; Protocol Last Admin: 01/14/19 12:54 Dose: 166.667 mls/hr Sodium Chloride (Normal Saline -) 1,000 mls @ 60 mls/hr IV ASDIR [facility] Last Admin: 01/13/19 22:41 Dose: 60 mls/hr Ketorolac Tromethamine (Toradol Injection -) 30 mg IVPUSH Q6H PRN PRN Reason: PAIN LEVEL 1-5 Stop: 01/18/19 10:43 Last Admin: 01/14/19 09:28 Dose: 30 mg Meclizine HCl (Antivert -) 12.5 mg PO TID [facility] Last Admin: 01/14/19 13:21 Dose: Not Given Metformin HCl (Glucophage -) 1,000 mg PO BIDI [facility] Last Admin: 01/14/19 09:22 Dose: 1,000 mg Ondansetron HCl (Zofran Injection) 4 mg IVPUSH Q6H PRN PRN Reason: NAUSEA AND/OR VOMITING Ramipril (Altace -) 5 mg PO DAILY [facility] Last Admin: 01/14/19 09:23 Dose: 5 mg Senna (Senna -) 2 tab PO HS PRN PRN Reason: CONSTIPATION - Objective Vital Signs: Vital Signs Temperature 97.5 F L 01/14/19 14:53 Pulse Rate 65 01/14/19 14:53 Respiratory Rate 20 01/14/19 14:53 Blood Pressure 130/65 01/14/19 14:53 O2 Sat by Pulse Oximetry (%) 98 01/14/19 09:00 Constitutional: Yes: Calm Cardiovascular: Yes: Regular Rate and Rhythm, S1, S2 Respiratory: Yes: CTA Bilaterally Gastrointestinal: Yes: Tenderness (suprapubic) Neurological: Yes: Alert, Oriented Labs: CBC, BMP 01/13/19 06:48 01/13/19 06:48 Problem List - Problems (1) UTI (urinary tract infection) Assessment/Plan: iv abx urology on board flomax renal sono no hydronephrosis seen Code(s): N39.0 - URINARY TRACT INFECTION, SITE NOT SPECIFIED Qualifiers: Urinary tract infection type: acute cystitis Hematuria presence: with hematuria Qualified Code(s): N30.01 - Acute cystitis with hematuria (2) Diabetes Assessment/Plan: bgm metformin hgba1c Code(s): E11.9 - TYPE 2 DIABETES MELLITUS WITHOUT COMPLICATIONS Qualifiers: Diabetes mellitus type: type 2
--- NOTE | 2019-01-14 21:19 | PN ---
Progress Note (short form) - Note Progress Note: UROLOGY NOTE. RENAL SONO-NO HYDRO, NO STONE SEEN. SUGG. F/U WITH HER PRIVATE UROLOGIST OP.
[2019-01-14] MEDS: ATORVASTATIN CA 10 MG TABLET (FP) PO SCH (21:27)
[2019-01-14] MEDS: SODIUM CHLORIDE 1,000 ML IV SCH (23:22)
[2019-01-15] MEDS: VANCOMYCIN 1 GRAM (PRE-DOCKED) 1,000 MG/250 ML BAG IVPB SCH ×2 (00:03→13:05)
[2019-01-15] MEDS: MECLIZINE HCL 12.5 MG TABLET PO SCH ×2 (07:29→13:05)
[2019-01-15 08:02] LABS: ALBUMIN 3.6 g/dl (3.4-5.0); BILIRUBIN,TOTAL 0.4 mg/dL (0.2-1); BLOOD UREA NITROGEN 18.1 mg/dL (7-18); CALCIUM 9.2 mg/dL (8.5-10.1); CREATININE 0.9 mg/dL (0.55-1.3); POTASSIUM 3.8 mmol/L (3.5-5.1); TOT PROT 6.7 g/dl (6.4-8.2)
[2019-01-15] MEDS ORDERED: PT OWN MED DRAWER 7, Y5N ONE ×2 (08:02→10:28)
[2019-01-15] MEDS ORDERED: TAMSULOSIN HCL 0.4 MG CAP PO SCH (08:30)
[2019-01-15] MEDS: metFORMIN HCL 500 MG TABLET (FP) PO SCH ×2 (08:46→17:23)
[2019-01-15] MEDS: glyBURIDE 5 MG TABLET (UD) PO SCH ×2 (08:46→17:24)
[2019-01-15] MEDS ORDERED: SERTRALINE HCL 25 MG TABLET (FP) PO SCH (10:00)
[2019-01-15] MEDS: RAMIPRIL 5 MG CAPSULE (FP) PO SCH (10:29)
[2019-01-15] MEDS: ENOXAPARIN NA (PORCINE) 40 MG/0.4 ML DISP.SYRIN SQ SCH (10:30)
[2019-01-15] MEDS: KETOROLAC TROMETHAMINE 30 MG/1 ML VIAL IVPUSH PRN (12:57)
--- NOTE | 2019-01-15 13:00 | DS ---
Physical Examination Vital Signs: Vital Signs Temperature 97.7 F 01/15/19 06:14 Pulse Rate 53 L 01/15/19 06:14 Respiratory Rate 18 01/15/19 06:14 Blood Pressure 123/60 01/15/19 06:14 O2 Sat by Pulse Oximetry (%) 98 01/14/19 22:00 Constitutional: Yes: Calm Neck: Yes: Trachea Midline Cardiovascular: Yes: Regular Rate and Rhythm, S1, S2 Respiratory: Yes: CTA Bilaterally Gastrointestinal: Yes: Normal Bowel Sounds, Soft, Other Edema: No Neurological: Yes: Alert, Oriented Labs: CBC, BMP 01/13/19 06:48 01/15/19 06:30 Discharge Summary Reason For Visit: INFECTION W/ MICROORGANISM RESISTANT TO MULITIPLE Current Active Problems Abdominal pain (Acute) Diabetes (Acute) Hydronephrosis, right (Acute) MDRO (multiple drug resistant organisms) resistance (Acute) UTI (urinary tract infection) (Acute) Hospital Course: : suprapubic pain and burning on urination PCP:Dr. Diego HISTORY OF PRESENT ILLNESS: 63 year old female with history of diabetes mellitus(on oral hypoglycemics), hypertension and frequent UTI's with multiple drug resistant to organisms who was seen by Dr. Diego today for suprapubic pain and burning on urination. She denied fever, chest pain or shortness of breath. She was referred to the ER. UA showed cloudy urine, 1+ leukoesterase, 3+ blood, and negative nitrite. Urine and blood cultures pending. She is currently afebrile and blood pressure is normotensive. CT scan of abdomen demonstrated hydronephrosis. Labs notable for a normal WBC and renal studies. She received 1 gm of IV Ceftriaxone and reported symptoms have improved. She is being admitted for further medical management with consultations made to Urology and Infectious Diseases. patient seen by urology no hydronephrosis iv abx- has suprapubic pain on micturation Condition: Improved - Instructions Diet, Activity, Other Instructions: nitrofurantoin 100mg orally bid 10 days Follow up with regular urologist Disposition: HOME - Home Medications Comprehensive Discharge Medication List: Ambulatory Orders Glyburide 5 mg PO BID 01/16/13 Meclizine HCl [Antivert -] 12.5 mg PO TID #10 tablet 01/16/13 Naproxen [Naprosyn] 500 mg PO BID PRN 01/16/13 Ramipril 5 mg PO DAILY 01/16/13 Simvastatin [Zocor] 20 mg PO HS 01/16/13 metFORMIN HCL [Glucophage] 1,000 mg PO BID 01/16/13 Hydrocodone Bit/Acetaminophen [Vicodin 5-300mg Tablet] 1 - 2 tab PO Q8H #15 tablet 05/31/13
[2019-01-15 14:01] VITALS: BP 136/62; PULSE 71; TEMP 98.3
== END 2019-01-15 17:41 | disposition home or self-care (01) | DRG 690 ==
LOC: JER 14:57 → JERBED 20:23 → J7W 01-12 14:26
PROVIDERS: ADMIT Family Medicine; ATTEND Family Medicine
DX: N13.6 Pyonephrosis (principal); E78.5 Hyperlipidemia, unspecified; R10.31 Right lower quadrant pain; E11.9 Type 2 diabetes mellitus without complications; Z86.718 Personal history of other venous thrombosis and embolism; Z16.35 Resistance to multiple antimicrobial drugs
CPT/HCPCS: 36415; 74176-TC; 76775-TC; 76856-TC; 80048; 80053; 81003; 82550; 82962; 83036; 83540; 83550; 83690; 84484; 85025; 85027; 87040; 87086; 87186; 90670; 93005; 93010; 99285-25; J0131; J7030

== ENCOUNTER 2019-03-15 11:03 | Inpatient (IN) | payer OTHER ==
--- NOTE | 2019-03-15 11:31 | PDOC ---
History of Present Illness - General Chief Complaint: Chest Pain Stated Complaint: SENT BY PCP- CP/ADM.HERNIA Time Seen by Provider: 03/15/19 11:21 History Source: Patient Exam Limitations: No Limitations - History of Present Illness Initial Comments: 03/15/19 11:34 63YOF with h/o vesicovaginal fistula, inguinal hernia, NIDDM, HTN, and frequent UTI now with multidrug resistant organisms. She was instructed to come to the ED for admission for repair of inguinal hernia which has become very painful in the past [address] Iqbal requests admission to himself and consult with colorectal surgeon Dr. Palencia. The patient herself notes that the pain is located in the RLQ at the site of her inguinal hernia (patient points) and that the hernia has been protruding per baseline but no skin changes there. She notes the pain has been worse for the past 2 weeks, and her son became concerned over the past few days because she cannot even walk now d/t the pain. The patient additionally notes mild persistent chest tightness and mild SOB and states she believes this is anxiety. She denies f/c/n/v/d/c but notes some loose stool. Past History - Past Medical History Allergies/Adverse Reactions: Allergies Allergy/AdvReac Type Severity Reaction Status Date / Time morphine AdvReac Verified 01/13/19 13:25 Home Medications: Ambulatory Orders Glyburide 5 mg PO BID 01/16/13 Meclizine HCl [Antivert -] 12.5 mg PO TID #10 tablet 01/16/13 Ramipril 5 mg PO DAILY 01/16/13 Simvastatin [Zocor -] 20 mg PO HS 01/16/13 metFORMIN HCL [Glucophage] 1,000 mg PO BID 01/16/13 Ketorolac Tromethamine [Toradol] 10 mg PO Q6H #30 tablet 01/15/19 Sertraline HCl [Zoloft -] 25 mg PO DAILY tablet 01/15/19 Cardiac Disorders: Yes COPD: No Diabetes: Yes Disorders: Yes (urine leakage at times) HTN: Yes Hypercholesterolemia: Yes - Surgical History Cholecystectomy: Yes - Immunization History Immunization Up to Date: No - Psycho Social/Smoking Cessation Hx Smoking Status: Yes Smoking History: Never smoked Have you smoked in the past 12 months: No Number of Cigarettes Smoked Daily: 15 Information on smoking cessation initiated: No 'Breaking Loose' booklet given: 01/12/19 Hx Alcohol Use: No Drug/Substance Use Hx: No Substance Use Type: None Hx Substance Use Treatment: No Review of Systems - Review of Systems Able to Perform ROS?: Yes Comments:: 03/15/19 12:00 GEN: no fever, chills, night sweats, generalized weakness, malaise, or unintentional weight change HEENT: no ear pain, congestion, sore throat, rhinorrhea, nosebleed, vision change, or eye pain CV: chest tightness, no palpitations, lightheadedness, syncope, edema, or exercise intolerance RESP: SOB, no cough, or wheezing GI: abdominal pain, no nausea, vomiting, diarrhea, constipation, appetite change , or white/black/bloody stool : no new incontinence, retention, pruritis, bleeding, or discharge MSK: no muscle weakness or pain, no muscle wasting, no joint swelling or pain NEURO: no headache, seizure, vertigo, imbalance, numbness, tingling, focal weakness, or difficulty walking/talking PSYCH: no insomnia, behavior change, SI, HI, or substance use SKIN: no prutitis, excessive dryness, jaundice, rash, cuts, or unexplained bruises ROS otherwise negative except as noted in HPI *Physical Exam - Vital Signs Last Vital Signs Temp Pulse Resp BP Pulse Ox 97.9 F 83 16 113/84 98 03/15/19 11:10 03/15/19 11:10 03/15/19 11:10 03/15/19 11:10 03/15/19 11:10 - Physical Exam Comments: 03/15/19 12:03 GENERAL: a bit pale and ill-appearing, uncomfortable appearing, A/Ox4, no distress, answers questions appropriately HEENT: PERRLA, EOMI, moist mucous membranes NECK/BACK: no midline ttp, no spinal stepoff or deformity, no hematoma, full ROM , neck supple CARDIOVASCULAR: regular rate/rhythm, normal S1S2, no MGR, strong peripheral pulses, capillary refill <2 seconds, extremities wwp, no edema LUNGS/RESPIRATORY: no respiratory distress, CTAB GI/ABDOMEN: symmetric [id number], normoactive BS, soft, right inguinal protuberance c/w incarcerated inguinal hernia which is tender to palpation but no overlying skin changes, non-pulsatile, no peristalsis palpated, abdomen with no midline pulsatile masses : no CVA tenderness EXTREMITIES: no muscle atrophy, no acute deformity SKIN: warm and dry, pale, no jaundice, no rash, no bruising, no skin breakdown, no cuts, no lesions NEUROLOGICAL: GCS 15, CN II-XII grossly intact, 5/5 strength proximally and distally, no facial droop ED Treatment Course - LABORATORY CBC & Chemistry Diagram: 03/15/19 11:52 03/15/19 11:52 Medical Decision Making - Medical Decision Making 03/15/19 12:07 63 YOF p/w RLQ pain worsening x2 weeks to the point where she now cannot walk, also chest tightness. Exam: As noted in Physical Exam section. W/U ordered: Labs as noted below, triple-contrast CT abdomen/pelvis, EKG TX ordered: IVF, Ofirmev EKG: Reviewed; results as noted in ECG Review section. I spoke with Dr. Iqbal and Dr. Randall, patient admitted to Dr. Iqbal's service, consult order placed. On discussion with the patient about IV contrast, she reveals that she had serious rxn to IV contrast in the past. She notes her throat felt like it was closing and she couldn't breath; this was a few decades ago. IV contrast will be withheld. Labs: Reassessment: Repeat VS: Discharge - Discharge Information Problems reviewed: Yes Clinical Impression/Diagnosis: Incarcerated hernia, Vesicovaginal fistula Chest pain Qualifiers: Chest pain type: unspecified Qualified Code(s): R07.9 - Chest pain, unspecified Condition: Guarded - Admission Yes - Follow up/Referral - Patient Discharge Instructions - Post Discharge Activity
[2019-03-15] MEDS ORDERED: SODIUM CHLORIDE 0.9% 500 ML INFUS.BAG IV ONE (11:43)
[2019-03-15] MEDS ORDERED: ACETAMINOPHEN 1000 MG/100 ML VIAL (NON FORMULARY) IVPB ONE (12:02)
[2019-03-15] MEDS ORDERED: ACETAMINOPHEN INJECTION 100 ML IVPB ONE (12:13)
[2019-03-15 12:18] LABS: BASO % 0.9 % (0-2.0); EOS % 1.2 % (0-4.5); HEMATOCRIT 38.3 % (32.4-45.2); HEMOGLOBIN 13.4 GM/dL (10.7-15.3); LYMPH % 25.5 % (8-40); MCH 31.9 pg (25.7-33.7); MCHC 34.9 g/dl (32.0-36.0); MEAN CELL VOLUME 91.5 fl (80-96); MEAN PLT VOLUME 8.3 fl (7.5-11.1); MONO % 4.9 % (3.8-10.2); NEUT % 67.5 % (42.8-82.8); PLATELET COUNT 223 K/MM3 (134-434); RBC 4.19 M/mm3 (3.60-5.2); RDW 12.1 % (11.6-15.6); WHITE BLOOD COUNT 8.3 K/mm3 (4.0-10.0)
--- NOTE | 2019-03-15 12:18 | PDOC ---
Attending Attestation - Resident Resident Name: Sailaja Rolon - ED Attending Attestation I have performed the following: I have examined & evaluated the patient, The case was reviewed & discussed with the resident, I agree w/resident's findings & plan, Exceptions are as noted - HPI HPI: 03/15/19 12:11 63 F with h/o vesicovaginal fistula, R inguinal hernia, DM, HTN, UTIs, presenting to ED with R inguinal pain x 2 weeks. Denies N/V. Denies abdominal distention. is still passing stool. However, she notes the pain has increased to the point where walking is difficult. Denies F/C. - Physicial Exam PE: 03/15/19 12:18 GENERAL: Awake, alert, and fully oriented, in no acute distress. HEAD: No signs of trauma EYES: PERRLA, EOMI, sclera anicteric, conjunctiva clear ENT: Auricles normal inspection, hearing grossly normal, nares patent, oropharynx clear without exudates. Moist mucosa NECK: Nontender, no stepoffs, Normal ROM, supple, no lymphadenopathy, JVD, or masses LUNGS: Breath sounds equal, clear to auscultation bilaterally. No wheezes, and no crackles HEART: Regular rate and rhythm, normal S1 and S2, no murmurs, rubs or gallops ABDOMEN: + R inguinal mass, tender to palpation, no skin changes EXTREMITIES: Normal range of motion, no edema. No clubbing or cyanosis. No cords, erythema, or tenderness NEUROLOGICAL: Cranial nerves II through XII intact. 5/5 strength and sensation in all extremities, Normal speech, normal gait, normal cerebellar function SKIN: Warm, Dry, normal turgor, no rashes or lesions noted. - Medical Decision Making 03/15/19 12:18 63 F with R inguinal pain, likely 2/2 inguinal hernia. - labs - CTAP - IVF, pain control
[2019-03-15 12:38] LABS: INR 0.97 (0.83-1.09); PROTHROMBIN TIME (PATIENT) 11.4 SEC (9.7-13.0)
[2019-03-15 12:51] LABS: ALBUMIN 4.5 g/dl (3.4-5.0); BILIRUBIN,TOTAL 0.3 mg/dL (0.2-1); BLOOD UREA NITROGEN 23.6 mg/dL (7-18); CALCIUM 9.4 mg/dL (8.5-10.1); CREATININE 1.3 mg/dL (0.55-1.3); POTASSIUM 4.3 mmol/L (3.5-5.1); TOT PROT 8.2 g/dl (6.4-8.2)
--- NOTE | 2019-03-15 14:21 | HP ---
Admitting History and Physical - Admission Chief Complaint: came in for inginual hernia/pain History of Present Illness: 63YOF with h/o vesicovaginal fistula, inguinal hernia, NIDDM, HTN, and frequent UTI now with multidrug resistant organisms. She was instructed to come to the ED for admission for repair of inguinal hernia which has become very painful in the past [address] Iqbal requests admission to himself and consult with colorectal surgeon Dr. Palencia. The patient herself notes that the pain is located in the RLQ at the site of her inguinal hernia (patient points) and that the hernia has been protruding per baseline but no skin changes there. She notes the pain has been worse for the past 2 weeks, and her son became concerned over the past few days because she cannot even walk now d/t the pain. History Source: Patient - Past Medical History Cardiovascular: Yes: HTN Endocrine: Yes: Diabetes Mellitus - Smoking History Smoking history: Never smoked Have you smoked in the past 12 months: No Aproximately how many cigarettes per day: 15 - Alcohol/Substance Use Hx Alcohol Use: No Home Medications - Allergies Allergies/Adverse Reactions: Allergies Allergy/AdvReac Type Severity Reaction Status Date / Time Iodinated Contrast Media Allergy Verified 03/15/19 14:07 morphine AdvReac Verified 01/13/19 13:25 - Home Medications Home Medications: Ambulatory Orders Glyburide 5 mg PO BID 01/16/13 Meclizine HCl [Antivert -] 12.5 mg PO TID #10 tablet 01/16/13 Ramipril 5 mg PO DAILY 01/16/13 Simvastatin [Zocor -] 20 mg PO HS 01/16/13 metFORMIN HCL [Glucophage] 1,000 mg PO BID 01/16/13 Ketorolac Tromethamine [Toradol] 10 mg PO Q6H #30 tablet 01/15/19 Sertraline HCl [Zoloft -] 25 mg PO DAILY tablet 01/15/19 Review of Systems - Review of Systems Gastrointestinal: reports: Abdominal Pain Physical Examination Vital Signs: Vital Signs Temperature 97.9 F 03/15/19 11:10 Pulse Rate 64 03/15/19 13:46 Respiratory Rate 18 03/15/19 13:46 Blood Pressure 120/66 03/15/19 13:46 O2 Sat by Pulse Oximetry (%) 100 03/15/19 13:46 Constitutional: Yes: Calm, Thin Cardiovascular: Yes: Regular Rate and Rhythm, S1, S2 Respiratory: Yes: CTA Bilaterally Gastrointestinal: Yes: Hernia (right inguinal hernia firm irreducible tender to palpation, protuberant) Edema: No Neurological: Yes: Alert, Oriented Labs: CBC, BMP 03/15/19 11:52 03/15/19 11:52 Imaging - Results Cat Scan: Pending Problem List - Problems (1) Incarcerated hernia Assessment/Plan: surgical consult ct scan- pending ivf npo dvtppx Code(s): K46.0 - UNSP ABDOMINAL HERNIA WITH OBSTRUCTION, WITHOUT GANGRENE (2) Diabetes Assessment/Plan: hold oral hypoglcemia check hgb1c bgm sliding scale Code(s): E11.9 - TYPE 2 DIABETES MELLITUS WITHOUT COMPLICATIONS Qualifiers: Diabetes mellitus type: type 2
[2019-03-15 15:08] VITALS: BMI 23.8
--- NOTE | 2019-03-15 15:13 | CONSULT ---
- Consultation REQUESTING PROVIDER: CONSULT REQUEST: We have been asked to surgically evaluate this patient for abdominal pain. PCP:Ariel Iqbal HISTORY OF PRESENT ILLNESS: 63 y/o F w/ PMHx vesicovaginal fistula, inguinal hernia, NIDDM, HTN, and frequent UTI with multidrug resistant organisms, sent to ED by PCP (Dr Iqbal) for evaluation of worsening R groin/hernia pain. Pt reports she has been had pain at the site of her hernia for the past several months. Pt reports pain has been steadily worsening. States weight loss, is unable to quantify an amount. Is having normal bowel movements, last this AM, reports it was normal. Denies any changes to vaginal discharge/odor, vaginal flatus. Per EMR pt was seen by Dr Gordon in the office in May, CT scan was ordered but pt did not follow up. PMHx: as above PSHx: Open hysterectomy (20 years ago), b/l inguinal hernia repairs x 3 ( per pt 20 years ago), Cholecystectomy (20 years ago), tubal ligation Home Medications Medication Instructions Recorded Glyburide 5 mg PO BID 01/16/13 Meclizine HCl [Antivert -] 12.5 mg PO TID #10 tablet 01/16/13 Ramipril 5 mg PO DAILY 01/16/13 Simvastatin [Zocor -] 20 mg PO HS 01/16/13 metFORMIN HCL [Glucophage] 1,000 mg PO BID 01/16/13 Ketorolac Tromethamine [Toradol] 10 mg PO Q6H #30 tablet 01/15/19 Sertraline HCl [Zoloft -] 25 mg PO DAILY tablet 01/15/19 Allergies Allergy/AdvReac Type Severity Reaction Status Date / Time Iodinated Contrast Media Allergy Verified 03/15/19 14:07 morphine AdvReac Verified 01/13/19 13:25 REVIEW OF SYSTEMS: CONSTITUTIONAL: Absent: fever, chills CARDIOVASCULAR: Absent: chest pain RESPIRATORY: Absent: cough, shortness of breath GASTROINTESTINAL: + abdominal pain Negative: nausea, vomiting, diarrhea, constipation, melena, hematochezia GENITOURINARY: Absent: dysuria, frequency, urgency, hesitancy, hematuria, flank pain, genital pain PHYSICAL EXAM: GENERAL: Awake, alert, and fully oriented, in no acute distress. HEAD: Normal with no signs of trauma. ABDOMEN: Soft, minimal ttp rle, not distended, normoactive bowel sounds, no guarding, no rebound. ? weakness in fascia rle no hernia appreciated b/l MUSCULOSKELETAL: Normal ROM at all joints. No bony deformities or tenderness. No CVA tenderness. Vital Signs Temperature 98 F 03/15/19 15:03 Pulse Rate 82 03/15/19 15:03 Respiratory Rate 18 03/15/19 15:03 Blood Pressure 146/78 03/15/19 15:03 O2 Sat by Pulse Oximetry (%) 100 03/15/19 13:46 Lab Results WBC 8.3 K/mm3 (4.0-10.0) 03/15/19 11:52 RBC 4.19 M/mm3 (3.60-5.2) 03/15/19 11:52 Hgb 13.4 GM/dL (10.7-15.3) 03/15/19 11:52 Hct 38.3 % (32.4-45.2) D 03/15/19 11:52 MCV 91.5 fl (80-96) 03/15/19 11:52 MCHC 34.9 g/dl (32.0-36.0) 03/15/19 11:52 RDW 12.1 % (11.6-15.6) 03/15/19 11:52 Plt Count 223 K/MM3 (134-434) D 03/15/19 11:52 Sodium 137 mmol/L (136-145) 03/15/19 11:52 Potassium 4.3 mmol/L (3.5-5.1) 03/15/19 11:52 Chloride 106 mmol/L (98-107) 03/15/19 11:52 Carbon Dioxide 21 mmol/L (21-32) 03/15/19 11:52 Anion Gap 10 MMOL/L (8-16) 03/15/19 11:52 BUN 23.6 mg/dL (7-18) H 03/15/19 11:52 Creatinine 1.3 mg/dL (0.55-1.3) 03/15/19 11:52 Random Glucose 147 mg/dL (74-106) H 03/15/19 11:52 Calcium 9.4 mg/dL (8.5-10.1) 03/15/19 11:52 Blood Type Cancelled 03/15/19 11:52 Antibody Screen Cancelled 03/15/19 11:52 INR 0.97 (0.83-1.09) 03/15/19 11:52 CT scan (03/15/19): Pelvic fluid collection in the region of the uterus. The pt appears to be s/p hysterectomy. No acute pathology within the abdomen or pelvis. A/P: 63 y/o F w/ PMHx vesicovaginal fistula, inguinal hernia, NIDDM, HTN, and frequent UTI with multidrug resistant organisms, sent to ED by PCP (Dr Iqbal) for evaluation of worsening R groin/hernia pain. Recommend cystogram for further evaluation Will follow closely while in house d/w attending Dr Lara
--- NOTE | 2019-03-15 15:53 | EKG ---
Test Reason : Blood Pressure : / mmHG Vent. Rate : 067 BPM Atrial Rate : 067 BPM P-R Int : 132 ms QRS Dur : 074 ms QT Int : 410 ms P-R-T Axes : 044 -36 -01 degrees QTc Int : 433 ms NORMAL SINUS RHYTHM LEFT AXIS DEVIATION MINIMAL VOLTAGE CRITERIA FOR LVH, MAY BE NORMAL VARIANT ANTERIOR INFARCT , AGE UNDETERMINED ABNORMAL ECG WHEN COMPARED WITH ECG OF 11-JAN-2019 15:24, NO SIGNIFICANT CHANGE WAS FOUND Confirmed by EDEL MUÑOZ MD ([id number]) on 03/15/2019 3:52:46 PM Referred By: Confirmed By:EDEL MUÑOZ MD
[2019-03-15] MEDS: HEPARIN NA (PORCINE) 5,000 UNITS/ML 1ML VIAL SQ SCH (22:16)
[2019-03-15] MEDS: ACETAMINOPHEN 1000 MG/100 ML VIAL (NON FORMULARY) IVPB PRN (22:16)
[2019-03-15] MEDS: SODIUM CHLORIDE 1,000 ML IV SCH (22:16)
[2019-03-15] MEDS: INSULIN SLIDING SCALE (NOVOLOG) 1 VIAL SQ SCH (22:23)
[2019-03-16] MEDS: ACETAMINOPHEN 1000 MG/100 ML VIAL (NON FORMULARY) IVPB PRN ×2 (06:12→13:36)
[2019-03-16] MEDS: INSULIN SLIDING SCALE (NOVOLOG) 1 VIAL SQ SCH ×4 (06:12→22:10)
[2019-03-16 07:23] LABS: HEMATOCRIT 32.3 % (32.4-45.2); HEMOGLOBIN 11.3 GM/dL (10.7-15.3); MEAN CELL VOLUME 91.6 fl (80-96); MEAN PLT VOLUME 8.3 fl (7.5-11.1); PLATELET COUNT 165 K/MM3 (134-434); RBC 3.52 M/mm3 (3.60-5.2); WHITE BLOOD COUNT 5.1 K/mm3 (4.0-10.0)
[2019-03-16 07:44] LABS: ALBUMIN 3.6 g/dl (3.4-5.0); BILIRUBIN,TOTAL 0.3 mg/dL (0.2-1); BLOOD UREA NITROGEN 16.1 mg/dL (7-18); CALCIUM 8.6 mg/dL (8.5-10.1); MAGNESIUM 1.7 mg/dL (1.8-2.4); POTASSIUM 4.1 mmol/L (3.5-5.1); TOT PROT 6.6 g/dl (6.4-8.2)
--- NOTE | 2019-03-16 08:23 | PN ---
Progress Note, Physician History of Present Illness: 3 F with h/o vesicovaginal fistula, R inguinal hernia, DM, HTN, UTIs, presenting to ED with R inguinal pain x 2 weeks - Current Medication List Current Medications: Active Medications Acetaminophen (Ofirmev Injection -) 1,000 mg IVPB Q6H PRN PRN Reason: PAIN LEVEL 7 - 10 Last Admin: 03/16/19 06:12 Dose: 1,000 mg Heparin Sodium (Porcine) (Heparin -) 5,000 unit SQ BID [facility] Last Admin: 03/15/19 22:16 Dose: 5,000 unit Sodium Chloride (Normal Saline -) 1,000 mls @ 75 mls/hr IV ASDIR [facility] Last Admin: 03/15/19 22:16 Dose: 75 mls/hr Insulin Aspart (Novolog Vial Sliding Scale -) 1 vial SQ ACHS [facility]; Protocol Last Admin: 03/16/19 06:12 Dose: Not Given - Objective Vital Signs: Vital Signs Temperature 97.9 F 03/16/19 01:00 Pulse Rate 58 L 03/16/19 06:00 Respiratory Rate 20 03/16/19 06:00 Blood Pressure 100/48 L 03/16/19 06:00 O2 Sat by Pulse Oximetry (%) 95 03/15/19 22:00 Cardiovascular: Yes: Regular Rate and Rhythm Respiratory: Yes: Regular, CTA Bilaterally Gastrointestinal: Yes: Normal Bowel Sounds, Soft, Hernia (RT Ing), Tenderness ( rlq-suprapubic) Edema: No Labs: CBC, BMP 03/16/19 06:35 03/16/19 06:35 INR, PTT INR 0.97 (0.83-1.09) 03/15/19 11:52 Problem List - Problems (1) Pelvic fluid collection Assessment/Plan: -TECHNICAL DOCUMENT WRITER and Urology consult Code(s): R18.8 - OTHER ASCITES (2) Inguinal hernia Assessment/Plan: -Surgical Consult -Ct scn noted--non-obstructive pattern Code(s): K40.90 - UNIL INGUINAL HERNIA, W/O OBST OR GANGR, NOT SPCF RECUR (3) Vesicovaginal fistula Assessment/Plan: -History-- --await uro and senior sales representative consult Code(s): N82.0 - VESICOVAGINAL FISTULA (4) Diabetes Code(s): E11.9 - TYPE 2 DIABETES MELLITUS WITHOUT COMPLICATIONS Qualifiers: Diabetes mellitus type: type 2
[2019-03-16 10:58] LABS: HYALINE CASTS 5 /lpf (0-8); URINE APPEARANCE CLEAR; URINE BILIRUBIN NEGATIVE (NEGATIVE); URINE COLOR YELLOW; URINE GLUCOSE (UA) NEGATIVE (NEGATIVE); URINE KETONE NEGATIVE (NEGATIVE); URINE LEUK ESTERASE 1+ (NEGATIVE); URINE NITRITE NEGATIVE (NEGATIVE); URINE PROTEIN NEGATIVE (NEGATIVE); URINE RBC 1 /hpf (0-4); URINE UROBILINOGEN 0.2 mg/dL (0.2-1.0); URINE WBC 48 /hpf (0-5)
[2019-03-16] MEDS: HEPARIN NA (PORCINE) 5,000 UNITS/ML 1ML VIAL SQ SCH ×3 (11:17→22:05)
[2019-03-16] MEDS: SODIUM CHLORIDE 1,000 ML IV SCH (16:28)
[2019-03-16] MEDS ORDERED: KETOROLAC TROMETHAMINE 30 MG/1 ML VIAL IVPUSH ONE (20:56)
--- NOTE | 2019-03-16 21:01 | HOSP ---
Subjective - Review of Symptoms Events since last encounter: 63 F with h/o vesicovaginal fistula, R inguinal hernia, DM, HTN, UTIs, presenting to ED with R inguinal pain x 2 weeks complain of pain with relief with IV tylenol, allergy to morphine ( as per patient gets swelling, difficulty breathing) spoke and discussed with pharmacy will give tordol IV push x1 if successful will change to PRN tordol nursing will assess pain post medication administration Physical Examination Vital Signs: Vital Signs Temperature 98.4 F 03/16/19 17:00 Pulse Rate 64 03/16/19 17:00 Respiratory Rate 20 03/16/19 17:00 Blood Pressure 123/68 03/16/19 17:00 O2 Sat by Pulse Oximetry (%) 97 03/16/19 09:00 Labs: CBC, BMP 03/16/19 06:35 03/16/19 06:35 Hospitalist Encounter Assessment: # R inguinal pain x 2 weeks - IV Tyelnol not helpful - discuss with pharmacy will try tordol 30 mg IV push x1 - reassess pain
--- NOTE | 2019-03-16 22:44 | CONSULT ---
Consult - text type - Consultation Consultation Note: Patient examined chart reviewed Agree with and COOPERATIVE EXTENSION AGENT evaluation consider IR consult for percutaneous drainage of pelvic collection no urgent need for surgical intervention Will follow
[2019-03-17] MEDS: ACETAMINOPHEN 1000 MG/100 ML VIAL (NON FORMULARY) IVPB PRN (01:12)
[2019-03-17] MEDS: INSULIN SLIDING SCALE (NOVOLOG) 1 VIAL SQ SCH ×2 (06:14→13:16)
--- NOTE | 2019-03-17 07:40 | PN ---
Progress Note, Physician - Current Medication List Current Medications: Active Medications Heparin Sodium (Porcine) (Heparin -) 5,000 unit SQ BID [facility] Last Admin: 03/16/19 22:05 Dose: Not Given Sodium Chloride (Normal Saline -) 1,000 mls @ 75 mls/hr IV ASDIR [facility] Last Admin: 03/16/19 16:28 Dose: 75 mls/hr Insulin Aspart (Novolog Vial Sliding Scale -) 1 vial SQ ACHS [facility]; Protocol Last Admin: 03/17/19 06:14 Dose: Not Given - Objective Vital Signs: Vital Signs Temperature 98.1 F 03/17/19 01:00 Pulse Rate 65 03/17/19 01:00 Respiratory Rate 20 03/17/19 01:00 Blood Pressure 124/49 L 03/17/19 01:00 O2 Sat by Pulse Oximetry (%) 97 03/16/19 21:00 Cardiovascular: Yes: Regular Rate and Rhythm Respiratory: Yes: Regular, CTA Bilaterally Gastrointestinal: Yes: Normal Bowel Sounds, Soft, Tenderness Labs: CBC, BMP 03/16/19 06:35 03/16/19 06:35 INR, PTT INR 0.97 (0.83-1.09) 03/15/19 11:52 Problem List - Problems (1) Pelvic fluid collection Assessment/Plan: -AGENT PRODUCER and Urology consult -H/o Vesicu-vag fistula -Uro and Reel Winder Code(s): R18.8 - OTHER ASCITES (2) Inguinal hernia Assessment/Plan: -Surgical Consult -Ct scn noted--non-obstructive pattern Code(s): K40.90 - UNIL INGUINAL HERNIA, W/O OBST OR GANGR, NOT SPCF RECUR (3) Vesicovaginal fistula Assessment/Plan: -History-- --await uro and poultry farmworker consult Code(s): N82.0 - VESICOVAGINAL FISTULA (4) Diabetes Code(s): E11.9 - TYPE 2 DIABETES MELLITUS WITHOUT COMPLICATIONS Qualifiers: Diabetes mellitus type: type 2
--- NOTE | 2019-03-17 08:22 | CON.GU ---
Consult Consult Specialty:: urology Reason for Consultation:: vesicovaginal fistula - History of Present Illness History of Present Illness: Patient is a 63 year old female with a history of right lower quadrant pain with history or a right hernia. Patient is seeing Dr. Cates at [place] for the vesicovaginal fistula. The patient reports urinary incontinence with recurrent uti's. Patient denies nausea, vomiting, fever, or chills. - History Source History Provided By: Patient Limitations to Obtaining History: No Limitations - Past Medical History Cardio/Vascular: Yes: HTN ...: No Endocrine: Yes: Diabetes Mellitus - Alcohol/Substance Use Hx Alcohol Use: No - Smoking History Smoking history: Current every day smoker Have you smoked in the past 12 months: Yes Aproximately how many cigarettes per day: 15 Home Medications - Allergies Allergies/Adverse Reactions: Allergies Allergy/AdvReac Type Severity Reaction Status Date / Time Iodinated Contrast Media Allergy Verified 03/15/19 14:07 morphine AdvReac Verified 01/13/19 13:25 - Home Medications Home Medications: Ambulatory Orders Glyburide 5 mg PO BID 01/16/13 Meclizine HCl [Antivert -] 12.5 mg PO TID #10 tablet 01/16/13 Ramipril 5 mg PO DAILY 01/16/13 Simvastatin [Zocor -] 20 mg PO HS 01/16/13 metFORMIN HCL [Glucophage] 1,000 mg PO BID 01/16/13 Ketorolac Tromethamine [Toradol] 10 mg PO Q6H #30 tablet 01/15/19 Sertraline HCl [Zoloft -] 25 mg PO DAILY tablet 01/15/19 Physical Exam- Vital Signs: Vital Signs Temperature 98.3 F 03/17/19 06:00 Pulse Rate 57 L 03/17/19 06:00 Respiratory Rate 18 03/17/19 06:00 Blood Pressure 125/63 03/17/19 06:00 O2 Sat by Pulse Oximetry (%) 97 03/16/19 21:00 Constitutional: Yes: Well Nourished, No Distress, Calm Eyes: Yes: WNL, Conjunctiva Clear, EOM Intact HENT: Yes: WNL, Atraumatic, Normocephalic Neck: Yes: WNL, Supple, Trachea Midline Cardiovascular: Yes: WNL Respiratory: Yes: Regular Gastrointestinal: Yes: WNL, Soft (patient with mild right lower quadrant tenderness) Kidneys: Yes: WNL Pelvis: Yes: Bladder Non Palpable External Genitalia: Yes: WNL, Cystocele Labs: CBC, BMP 03/16/19 06:35 03/16/19 06:35 Assessment/Plan impression vesicovaginal fistula plan have patient follow-up with her urologist (Dr. Santacruz) follow urine culture for possible uti.
[2019-03-17 09:07] LABS: BASO % 0.8 % (0-2.0); EOS % 2.5 % (0-4.5); HEMATOCRIT 37.7 % (32.4-45.2); HEMOGLOBIN 12.6 GM/dL (10.7-15.3); LYMPH % 21.2 % (8-40); MCH 30.9 pg (25.7-33.7); MCHC 33.5 g/dl (32.0-36.0); MEAN CELL VOLUME 92.2 fl (80-96); MONO % 5.2 % (3.8-10.2); NEUT % 70.3 % (42.8-82.8); PLATELET COUNT 194 K/MM3 (134-434); RBC 4.09 M/mm3 (3.60-5.2); RDW 12.1 % (11.6-15.6); WHITE BLOOD COUNT 6.4 K/mm3 (4.0-10.0)
--- NOTE | 2019-03-17 09:42 | PN ---
Progress Note (short form) - Note Progress Note: 63yo F h/o abd pain and bladder leak. Pt seen and examined at bedside continues to complain of diffusion pelvic/abd pain. Pt denies n/v, fever, chills. Pt states that she knows that she has a bladder leak and is supposed to have it repaired by a urologist at [facility]. Pt states she would like to go home and follow up with her urologist if nothing is going to be done acutely in the hospital. Last Vital Signs Temp Pulse Resp BP Pulse Ox 98.3 F 68 18 134/72 97 03/17/19 06:00 03/17/19 08:56 03/17/19 08:56 03/17/19 08:56 03/16/19 21:00 CBC, BMP 03/17/19 08:53 03/16/19 06:35 PE: Gen: A&O x3 Resp: breathing comfortably Abd: soft, nondistended, mild lower abd tenderness. Problem List - Problems (1) Pelvic fluid collection Assessment/Plan: Plan -no acute general surgery intervention at this time, pt shows no sign of incarcerated hernia. -pt should follow up with urology Case discussed with Dr. Sweet who agrees with plan Code(s): R18.8 - OTHER ASCITES
--- NOTE | 2019-03-17 10:00 | EKG ---
Test Reason : Blood Pressure : / mmHG Vent. Rate : 075 BPM Atrial Rate : 075 BPM P-R Int : 142 ms QRS Dur : 074 ms QT Int : 386 ms P-R-T Axes : 043 -37 -03 degrees QTc Int : 431 ms NORMAL SINUS RHYTHM LEFT AXIS DEVIATION MODERATE VOLTAGE CRITERIA FOR LVH, MAY BE NORMAL VARIANT ABNORMAL ECG WHEN COMPARED WITH ECG OF 15-MAR-2019 11:08, NO SIGNIFICANT CHANGE WAS FOUND Confirmed by MAURICIO PETTY, LYNETTE ([id number]) on 03/17/2019 9:59:58 AM Referred By: CHOLO RUDD DR Confirmed By:LYNETTE MARTÍNEZ MD
[2019-03-17] MEDS: HEPARIN NA (PORCINE) 5,000 UNITS/ML 1ML VIAL SQ SCH ×2 (10:29→10:31)
--- NOTE | 2019-03-17 11:10 | CON.OBG ---
Consult Consult Specialty:: commercial parts professional Referred by:: Drs. Garcia/Rasheed - History of Present Illness Chief Complaint: Admitted w RLQ pain, has pelvic fluid collection and known vesico-vaginal fistula. [facility] SOO & BSO in 1999. Laparotomy to repair bladder and control incontinence, very extensive, 1 year later. Diagnosed w fistula at [facility]. - History Source History Provided By: Patient Limitations to Obtaining History: No Limitations - Past Medical History HIDE MILL MAN: No: Alzheimer's, CVA, Dementia, Migraine, Multiple Sclerosis, Peripheral Neuropathy, Parkinson's, Seizure, Syncope, TIA, Vertigo, Other Cardio/Vascular: Yes: HTN. No: AFIB, Aneurysm, Aortic Insufficiency, Aortic Stenosis, CAD, CHF, Deep Vein Thrombosis, Hyperlipdemia, ID, Mitral Insufficiency, Mitral Stenosis, Murmur, Pulmonary Hypertension, Other Pulmonary: No: Asthma, Bronchitis, Cancer, COPD, O2 Dependent, Pneumonia, Previously Intubated, Pulmonary Embolus, Pulmonary Fibrosis, Sleep Apnea, Other Renal/: Yes: UTI Reproductive: No: Ectopic , Endometriosis, Fibroids, PID, Polycystic Ovary Syndrome, Postmenopausal, Other ...: No Infectious Disease: No: AIDS, C-Diff, Herpes Zoster, HIV, MRSA, STD's, Tuberculosis, VREF, Other Psych: No: Addictions, Anxiety, Bipolar, Depression, Panic, Psychosis, Schizophrenia, Other Musculoskeletal: No: Bursitis, Chronic low back pain, Hemiparesis, Hemiplegia, Osteoarthritis, Paraplegia, Other Rheumatology: No: Fibromyalgia, Gout, Lupus, Rheumatoid Arthritis, Sarcoidosis, Vasculitis, Other Endocrine: Yes: Diabetes Mellitus Dermatology: No: Basal Cell, Cellulitis, Eczema, Melanoma, Psoriasis, Squamous Cell, Other - Past Surgical History Past Surgical History: Yes: Hysterectomy Additional Surgical History: Laparotomy in 2000. - Alcohol/Substance Use Hx Alcohol Use: No - Smoking History Smoking history: Current every day smoker Have you smoked in the past 12 months: Yes Aproximately how many cigarettes per day: 15 Home Medications - Allergies Allergies/Adverse Reactions: Allergies Allergy/AdvReac Type Severity Reaction Status Date / Time Iodinated Contrast Media Allergy Verified 03/15/19 14:07 morphine AdvReac Verified 01/13/19 13:25 - Home Medications Home Medications: Ambulatory Orders Glyburide 5 mg PO BID 01/16/13 Meclizine HCl [Antivert -] 12.5 mg PO TID #10 tablet 01/16/13 Ramipril 5 mg PO DAILY 01/16/13 Simvastatin [Zocor -] 20 mg PO HS 01/16/13 metFORMIN HCL [Glucophage] 1,000 mg PO BID 01/16/13 Ketorolac Tromethamine [Toradol] 10 mg PO Q6H #30 tablet 01/15/19 Sertraline HCl [Zoloft -] 25 mg PO DAILY tablet 01/15/19 Physical Exam-HAND STITCHER Vital Signs: Vital Signs Temperature 98.3 F 03/17/19 06:00 Pulse Rate 68 03/17/19 08:56 Respiratory Rate 18 03/17/19 08:56 Blood Pressure 134/72 03/17/19 08:56 O2 Sat by Pulse Oximetry (%) 97 03/16/19 21:00 Labs: CBC, BMP 03/17/19 08:53 03/16/19 06:35 Problem List - Problems (1) Abdominal pain Code(s): R10.9 - UNSPECIFIED ABDOMINAL PAIN Qualifiers: Abdominal location: unspecified location Qualified Code(s): R10.9 - Unspecified abdominal pain (2) Vesicovaginal fistula Code(s): N82.0 - VESICOVAGINAL FISTULA Assessment/Plan Right lower quadrant pain of unclear etiology. Vesico-vaginal fistula. Pelvic collection. [facility] SOO & BSO in 1999. Medical comorbidities (DM, HTN) Patient declined pelvic examination. She wants to be discharged and follow with urogyn at [facility]. Unable to contribute meaningfully. Thank you for the courtesy of this consultation.
[2019-03-17] MEDS ORDERED: ACETAMINOPHEN 325 MG TABLET (FP) PO PRN (12:39)
--- NOTE | 2019-03-17 14:33 | DS ---
Physical Examination Vital Signs: Vital Signs Temperature 98.3 F 03/17/19 06:00 Pulse Rate 68 03/17/19 08:56 Respiratory Rate 18 03/17/19 08:56 Blood Pressure 134/72 03/17/19 08:56 O2 Sat by Pulse Oximetry (%) 97 03/16/19 21:00 Findings/Remarks: Laboratory Results - last 24 hr 03/16/19 03/16/19 03/17/19 17:07 22:06 06:13 WBC RBC Hgb Hct MCV MCH MCHC RDW Plt Count MPV Absolute Neuts (auto) Neutrophils % Lymphocytes % Monocytes % Eosinophils % Basophils % Nucleated RBC % POC Glucometer 160 205 143 03/17/19 03/17/19 08:53 11:15 WBC 6.4 RBC 4.09 Hgb 12.6 Hct 37.7 D MCV 92.2 MCH 30.9 MCHC 33.5 RDW 12.1 Plt Count 194 MPV 8.0 Absolute Neuts (auto) 4.5 Neutrophils % 70.3 Lymphocytes % 21.2 Monocytes % 5.2 Eosinophils % 2.5 D Basophils % 0.8 Nucleated RBC % 0 POC Glucometer 198 Active Medications Generic Name Dose Route Start Last Admin Trade Name Freq PRN Reason Stop Dose Admin Acetaminophen 650 mg 03/17/19 12:39 03/17/19 11:00 Tylenol - PO 650 mg Q6H PRN Administration PAIN SCALE OF 1-10 Heparin Sodium (Porcine) 5,000 unit 03/15/19 22:00 03/17/19 10:31 Heparin - SQ Not Given BID [facility] Sodium Chloride 1,000 mls @ 75 mls/hr 03/15/19 14:15 03/16/19 16:28 Normal Saline - IV 75 mls/hr ASDIR [facility] Administration Insulin Aspart 1 vial 03/15/19 16:30 03/17/19 13:16 Novolog Vial Sliding Scale - SQ Not Given ACHS [facility] Protocol Microbiology 03/16/19 10:30 Urine - Urine Clean Catch Urine Culture - Preliminary Lactose Fermenting Neg Bacilli Constitutional: Yes: No Distress, Calm Eyes: Yes: Conjunctiva Clear HENT: Yes: Atraumatic Cardiovascular: Yes: Regular Rate and Rhythm Respiratory: Yes: Regular, CTA Bilaterally Gastrointestinal: Yes: Normal Bowel Sounds, Soft Musculoskeletal: Yes: WNL Extremities: Yes: WNL Edema: No Neurological: Yes: Alert, Oriented Psychiatric: Yes: Alert, Oriented Labs: CBC, BMP 03/17/19 08:53 03/16/19 06:35 Discharge Summary Problems reviewed: Yes Reason For Visit: VESICOVAGINAL FISTULA,INCARCERATED HERNIA,ABD PAIN Current Active Problems Chest pain (Acute) Inguinal hernia (Acute) Pelvic fluid collection (Acute) Vesicovaginal fistula (Acute) Hospital Course: 63YOF with h/o vesicovaginal fistula, inguinal hernia, NIDDM, HTN, and frequent UTI now with multidrug resistant organisms. She was instructed to come to the ED for admission for repair of inguinal hernia which has become very painful in the past [address] Iqbal requests admission to himself and consult with colorectal surgeon Dr. Palencia. The patient herself notes that the pain is located in the RLQ at the site of her inguinal hernia (patient points) and that the hernia has been protruding per baseline but no skin changes there. She notes the pain has been worse for the past 2 weeks, and her son became concerned over the past few days because she cannot even walk now d/t the pain. Patient was evaluated by surgery and urology. Patient instructed to follow up with Urologist Dr Lowry at [facility]. Condition: Stable - Instructions Diet, Activity, Other Instructions: Follow up with PMD one week after discharge Follow up with urologist Dr Lowry at [facility] as scheduled continue with medication as prescribed return to ER if develop severe pain, respiratory distress, chest pain, fever Referrals: Ariel Iqbal MD [Primary Care Provider] - Disposition: HOME - Home Medications Comprehensive Discharge Medication List: Ambulatory Orders Glyburide 5 mg PO BID 01/16/13 Meclizine HCl [Antivert -] 12.5 mg PO TID #10 tablet 01/16/13 Ramipril 5 mg PO DAILY 01/16/13 Simvastatin [Zocor -] 20 mg PO HS 01/16/13 metFORMIN HCL [Glucophage] 1,000 mg PO BID 01/16/13 Ketorolac Tromethamine [Toradol -] 10 mg PO Q6H #30 tablet 01/15/19 Sertraline HCl [Zoloft -] 25 mg PO DAILY tablet 01/15/19
[2019-03-17 15:01] VITALS: BP 126/63; PULSE 78; TEMP 98
== END 2019-03-17 15:43 | disposition home or self-care (01) | DRG 394 ==
LOC: JER 11:03 → JERBED 11:32 → J4W 14:43
PROVIDERS: ADMIT Family Medicine; ATTEND Family Medicine
DX: K40.90 Unilateral inguinal hernia, without obstruction or gangrene, not specified as recurrent (principal); R18.8 Other ascites; N82.0 Vesicovaginal fistula; E11.9 Type 2 diabetes mellitus without complications; I10 Essential (primary) hypertension; F17.210 Nicotine dependence, cigarettes, uncomplicated
CPT/HCPCS: 36415; 74176-TC; 80048; 80053; 81003; 82962; 83036; 83605; 83735; 84484; 85025; 85027; 85610; 85730; 86850; 86900; 86901; 87086; 87186; 93005; 93010; 99285-25; J0131; J1644; J7030

== ENCOUNTER 2019-04-25 19:03 | Inpatient (IN) | payer OTHER ==
--- NOTE | 2019-04-25 19:13 | PDOC ---
History of Present Illness - General Stated Complaint: FEVER/BODY PAIN Time Seen by Provider: 04/25/19 19:13 History Source: Patient, Family Exam Limitations: No Limitations - History of Present Illness Initial Comments: 63 year old female with PMH HTN, HLD, NIDDM, vesiculovaginal fistula, recurrent multidrug resistant UTIs presented to ED for fever since 1300 today. Pt reported increasing lower abdominal pain over the last week associated with burning with urination. Pt reported she is supposed to have urological surgery to correct her fistula, and is in the process of setting that up. Pt reported she was seen by pain management x1 week ago for her chronic lower abdominal pain , and has not found a good solution, but she stated last time she was in the hospital Toradol worked well for her. She reported her urologist is in [place] and she goes between here and there for her care because she lives in [place]. PSH: Open hysterectomy (x20 years ago), b/l inguinal hernia repair x3 (per pt 20 years ago), Cholecystectomy (20 years ago), tubal ligation ROS General: denied fever, chills, generalized weakness. HEENT: denied sore throat, rhinorrhea, ear pain. Cardiovascular: denied chest pain, palpitations, syncope, diaphoresis. Respiratory: denied shortness of breath, cough, sputum production, hemoptysis. Gastrointestinal: admittde to abdominal pain. denied nausea, vomiting, diarrhea , constipation, blood in stool. Genitourinary: admitted to dysuria. denied hematuria, urinary incontinence, flank pain. Back: denied back pain. Musculoskeletal: denied joint pain, muscle pain, joint swelling. Neurological: denied headache, dizziness, numbness, tingling, weakness. Integumentary: denied rash, laceration, abrasion. Hematologic/Lymphatic: denied bruising or bleeding. PE Constitutional: Well-nourished, Well-developed, appearing stated age. HEENT: head is normocephalic, atraumatic. EOMI. PERRLA. Neck: supple. Full ROM. Cardiovascular: regular heart rhythm. no murmurs. no pericardial friction rub. Respiratory: clear to auscultation bilaterally. no crackles, rhonchi or wheezing. no stridor. Gastrointestinal: soft, flat. tender to LLQ/suprapubic area/RLQ, worst in suprapubic area. normal bowel sounds. no rebound, guarding. Extremities: peripheral pulses intact. no lower extremity edema. Neurological: CN 2-12 grossly intact. moves all four extremities. Psych: awake, alert, oriented x3. follows commands. answers questions appropriately. Past History - Past Medical History Allergies/Adverse Reactions: Allergies Allergy/AdvReac Type Severity Reaction Status Date / Time Iodinated Contrast Media Allergy Verified 03/15/19 14:07 morphine AdvReac Verified 01/13/19 13:25 Home Medications: Ambulatory Orders Glyburide 5 mg PO BID 01/16/13 Meclizine HCl [Antivert -] 12.5 mg PO TID #10 tablet 01/16/13 Ramipril 5 mg PO DAILY 01/16/13 Simvastatin [Zocor -] 20 mg PO HS 01/16/13 metFORMIN HCL [Glucophage] 1,000 mg PO BID 01/16/13 Ketorolac Tromethamine [Toradol -] 10 mg PO Q6H #30 tablet 01/15/19 Sertraline HCl [Zoloft -] 25 mg PO DAILY tablet 01/15/19 - Psycho Social/Smoking Cessation Hx Have you smoked in the past 12 months: No Number of Cigarettes Smoked Daily: 15 'Breaking Loose' booklet given: 01/12/19 Hx Alcohol Use: No Drug/Substance Use Hx: No ED Treatment Course - LABORATORY CBC & Chemistry Diagram: 04/25/19 19:28 04/25/19 19:28 Medical Decision Making - Medical Decision Making 63 year old female with above PMH presented to ED for increasing lower abdominal pain, dysuria x1 week associated with fever today. Initial Vital Signs Temp Pulse Resp BP Pulse Ox 100.7 F H 115 H 22 H 113/71 93 L 04/25/19 19:40 04/25/19 19:40 04/25/19 19:40 04/25/19 19:40 04/25/19 19:40 Febrile. Tachycardic. Tachypneic. No hypotension. Mild hypoxia on room air. -Nasal cannula ordered Labs ordered: CBC, CMP, VBG, UA/UC, blood cultures, troponin, lactate Imaging ordered: CXR, CT abdomen/pelvic with IV contrast Medications ordered: Tylenol IV, Toradol 30 mg IV once, normal saline bolus 1000 cc once, vancomycin, zosyn CXR my view: no infiltrate. no pulmonary vascular congestion. no cardiomegaly. sharp costophrenic angles. -Pending official report EKG performed at 1956: rate 106, regular rhythm, left axis, normal intervals, nonspecific ST changes. -Similar to prior performed 03/17/19 04/25/19 19:54 CBC WBC 12.9 K/mm3 (4.0-10.0) H 04/25/19 19:28 RBC 3.32 M/mm3 (3.60-5.2) L 04/25/19 19:28 Hgb 10.1 GM/dL (10.7-15.3) L 04/25/19 19:28 Hct 30.0 % (32.4-45.2) L D 04/25/19 19:28 MCV 90.1 fl (80-96) 04/25/19 19:28 MCH 30.4 pg (25.7-33.7) 04/25/19 19:28 MCHC 33.7 g/dl (32.0-36.0) 04/25/19 19:28 RDW 12.2 % (11.6-15.6) 04/25/19 19:28 Plt Count 188 K/MM3 (134-434) 04/25/19 19:28 MPV 8.8 fl (7.5-11.1) 04/25/19 19:28 Absolute Neuts (auto) 11.4 K/mm3 (1.5-8.0) H 04/25/19 19:28 Neutrophils % 88.7 % (42.8-82.8) H D 04/25/19 19:28 Lymphocytes % 4.0 % (8-40) L D 04/25/19 19:28 Monocytes % 6.7 % (3.8-10.2) 04/25/19 19:28 Eosinophils % 0.0 % (0-4.5) D 04/25/19 19:28 Basophils % 0.6 % (0-2.0) 04/25/19 19:28 Nucleated RBC % 0 % (0-0) 04/25/19 19:28 Leukocytosis with left shift. Normocytic anemia, last Hgb 12.6, current Hgb>8.0, no indication for transfusion. 04/25/19 20:32 CMP Sodium 132 mmol/L (136-145) L 04/25/19 19:28 Potassium 3.8 mmol/L (3.5-5.1) 04/25/19 19:28 Chloride 104 mmol/L (98-107) 04/25/19 19:28 Carbon Dioxide 15 mmol/L (21-32) L 04/25/19 19:28 Anion Gap 13 MMOL/L (8-16) 04/25/19 19:28 BUN 46.9 mg/dL (7-18) H 04/25/19 19:28 Creatinine 1.9 mg/dL (0.55-1.3) H 04/25/19 19:28 Est GFR (CKD-EPI)AfAm 31.51 04/25/19 19:28 Est GFR (CKD-EPI)NonAf 27.19 04/25/19 19:28 Random Glucose 260 mg/dL (74-106) H 04/25/19 19:28 Lactic Acid 2.3 mmol/L (0.4-2.0) H* 04/25/19 19:28 Calcium 8.4 mg/dL (8.5-10.1) L 04/25/19 19:28 Total Bilirubin 0.2 mg/dL (0.2-1) 04/25/19 19:28 AST 14 U/L (15-37) L 04/25/19 19:28 ALT 16 U/L (13-61) 04/25/19 19:28 Alkaline Phosphatase 77 U/L (45-117) 04/25/19 19:28 Troponin I < 0.02 ng/ml (0.00-0.05) 04/25/19 19:28 Total Protein 6.7 g/dl (6.4-8.2) 04/25/19 19:28 Albumin 3.2 g/dl (3.4-5.0) L 04/25/19 19:28 Mild hyponatremia - IVF running. LONG, last Cr 1.0. -Contrast study canceled No transamintiis Troponin undetectable Lactic acidosis -Additional normal saline 1L bolus ordered -Will repeat after 2L bolus Pt and Son informed of results and need for admission, they agreed with plan for care. 04/25/19 20:52 Urine Test Results Urine Color Yellow 04/25/19 20:22 Urine Appearance Turbid 04/25/19 20:22 Urine pH 5.0 (5.0-8.0) 04/25/19 20:22 Ur Specific [place] 1.017 (1.010-1.035) 04/25/19 20:22 Urine Protein 2+ (NEGATIVE) H 04/25/19 20:22 Urine Glucose (UA) Negative (NEGATIVE) 04/25/19 20:22 Urine Ketones Negative (NEGATIVE) 04/25/19 20:22 Urine Blood 3+ (NEGATIVE) H 04/25/19 20:22 Urine Nitrite Positive (NEGATIVE) H 04/25/19 20:22 Urine Bilirubin Negative (NEGATIVE) 04/25/19 20:22 Ur Leukocyte Esterase 3+ (NEGATIVE) H 04/25/19 20:22 Positive for UTI, hematuria. 04/25/19 21:21 Pt reported nausea. Medications ordered: zofran 4 mg IV once 04/25/19 21:54 Referring Physician: JASON PARMAR Comments: Filippo Villeda MD wrote on Apr 25, 2019 at 09:47 PM: Referring Physician: JASON PARMAR Patient Name: JONNIE BACON THIS IS A PRELIMINARY REPORT FROM [facility] EXAM: CT Abdomen \T\ Pelvis wo IMAGES: 501 EXAM DATE AND TIME: 2019-04-25 20:56:44 HISTORY: 63 year old woman: Lower abdominal pain. COMPARISON: None. TECHNIQUE: CT Abdomen \T\ Pelvis without I.V. or oral contrast: Non-contrast axial images were obtained. Coronal and sagittal images were also generated. FINDINGS: There is mild atelectasis at the lung bases, bilaterally. The lung bases are otherwise clear without evidence of infiltrate, pleural effusion or pulmonary nodule. The heart size is normal. There are no coronary artery calcifications. The lower thoracic and abdominal aorta, and the iliac arteries, exhibit scattered calcified atherosclerotic mural plaques but otherwise are normal in diameter and wall thickness. Evaluation of the gastrointestinal tract is limited by the lack of oral contrast. There is a small hiatal hernia. There is abundant stool throughout the colon from the cecum to the rectum. There is some redundancy of the ascending colon and splenic flexure segments. The bowel gas pattern is otherwise unremarkable, without evidence of free air, ascites fluid, small or large bowel dilatation or obstruction. There is no evidence of diverticulosis or diverticulitis. The appendix is normal. The patient has undergone a cholecystectomy and a hysterectomy in the past. The liver, common bile duct, gallbladder, pancreatic tissues, spleen, adrenal glands, kidneys, the ureters, urinary bladder,appear unremarkable. No evidence of abdominal or pelvic adenopathy. Osseous structures exhibit grossly normal mineralization without evidence of lytic or sclerotic lesions. The thoracic and lumbar vertebral body heights and alignments are maintained. Chronic disc degeneration is noted at the L2-3 level with loss of disc height. IMPRESSION: Abundant stool throughout the colon from cecum to the rectum. There is some redundancy of the ascending colon and splenic flexure segments. Small hiatal hernia. Cholecystectomy and a hysterectomy in the past. Chronic disc degeneration is noted at the L2-3 level with loss of disc height. The study is otherwise unremarkable. . One or more of the following dose reduction techniques were used: automated exposure control, adjustment of the mA and/or kV according to patient size, use of iterative reconstructive technique. THIS DOCUMENT HAS BEEN ELECTRONICALLY SIGNED Filippo Villeda MD. 04/25/2019 21:46 EST M.D. Please call [facility] [phone] ([phone]) with questions. Filippo Villeda MD Pt to be admitted for urosepsis. Pending admission. Microblog sent. 04/25/19 22:40 Signout given to MILANA Desai. Pt to be admitted med/surg under Dr. Moose guzman. Pending admission. Discharge - Discharge Information Problems reviewed: Yes Clinical Impression/Diagnosis: Sepsis, Lactic acidosis, Hematuria, LONG (acute kidney injury) Condition: Stable - Admission Yes - Follow up/Referral Referrals: Ariel Iqbal MD [Primary Care Provider] - - Patient Discharge Instructions - Post Discharge Activity
[2019-04-25] MEDS ORDERED: SODIUM CHLORIDE 1,000 ML IV STA ×2 (19:34→20:27)
[2019-04-25] MEDS ORDERED: KETOROLAC TROMETHAMINE 30 MG/1 ML VIAL IVPUSH ONE (19:34)
[2019-04-25] MEDS ORDERED: ACETAMINOPHEN 1000 MG/100 ML VIAL (NON FORMULARY) IVPB ONE (19:34)
[2019-04-25] MEDS ORDERED: PIPERACILLIN/TAZOB 3.375 GM 3.375 GM in DEXTROSE 5%-WATER - 50 ML IVPB ONE (19:43)
[2019-04-25] MEDS ORDERED: VANCOMYCIN 1,000 MG in DEXTROSE 5%-WATER - 250 ML IVPB ONE (19:43)
[2019-04-25 19:45] LABS: BASO % 0.6 % (0-2.0); HEMOGLOBIN 10.1 GM/dL (10.7-15.3); MCH 30.4 pg (25.7-33.7); MCHC 33.7 g/dl (32.0-36.0); MEAN CELL VOLUME 90.1 fl (80-96); MEAN PLT VOLUME 8.8 fl (7.5-11.1); MONO % 6.7 % (3.8-10.2); NEUT % 88.7 % (42.8-82.8); PLATELET COUNT 188 K/MM3 (134-434); RBC 3.32 M/mm3 (3.60-5.2); RDW 12.2 % (11.6-15.6); WHITE BLOOD COUNT 12.9 K/mm3 (4.0-10.0)
[2019-04-25] MEDS ORDERED: ACETAMINOPHEN INJECTION 100 ML IVPB ONE (19:49)
[2019-04-25] MEDS ORDERED: KETOROLAC TROMETHAMINE 30 MG/1 ML VIAL ONE (19:50)
[2019-04-25 19:52] LABS: INR 1.13 (0.83-1.09); PROTHROMBIN TIME (PATIENT) 13.3 SEC (9.7-13.0)
[2019-04-25 19:55] LABS: ACTIVATED PTT 28.5 SECONDS (25.2-36.5)
[2019-04-25 20:08] LABS: ALBUMIN 3.2 g/dl (3.4-5.0); BILIRUBIN,TOTAL 0.2 mg/dL (0.2-1); BLOOD UREA NITROGEN 46.9 mg/dL (7-18); CALCIUM 8.4 mg/dL (8.5-10.1); CREATININE 1.9 mg/dL (0.55-1.3); POTASSIUM 3.8 mmol/L (3.5-5.1); TOT PROT 6.7 g/dl (6.4-8.2)
--- NOTE | 2019-04-25 20:10 | PDOC ---
Attending Attestation - Resident Resident Name: Guerda Swartz - ED Attending Attestation I have performed the following: I have examined & evaluated the patient, The case was reviewed & discussed with the resident, I agree w/resident's findings & plan, Exceptions are as noted - HPI HPI: 04/25/19 20:09 63 F with h/o vesicovaginal fistula, inguinal hernia, NIDDM, HTN, pelvic fluid collection, and frequent UTIs, presenting with fevers and abdominal pain. Pain is localized to lower abdomen. No N/V/D. Pt was admitted 2 months ago for abdominal pain and was found to have a pelvic fluid collection at that time. No intervention was performed at that time to drain it. Pt did not follow up with anybody after discharge and has had persistent abdominal pain since then. - Physicial Exam PE: 04/25/19 20:15 "GENERAL: Awake, alert, and fully oriented, in no acute distress. HEAD: No signs of trauma EYES: PERRLA, EOMI, sclera anicteric, conjunctiva clear ENT: Auricles normal inspection, hearing grossly normal, nares patent, oropharynx clear without exudates. Moist mucosa NECK: Nontender, no stepoffs, Normal ROM, supple, no lymphadenopathy, JVD, or masses LUNGS: Breath sounds equal, clear to auscultation bilaterally. No wheezes, and no crackles HEART: Regular rate and rhythm, normal S1 and S2, no murmurs, rubs or gallops ABDOMEN: + BLQ tenderness, normoactive bowel sounds. No guarding, no rebound. No masses EXTREMITIES: Normal range of motion, no edema. No clubbing or cyanosis. No cords, erythema, or tenderness NEUROLOGICAL: Cranial nerves II through XII intact. 5/5 strength and sensation in all extremities, Normal speech, normal gait, normal cerebellar function SKIN: Warm, Dry, normal turgor, no rashes or lesions noted. - Medical Decision Making 04/25/19 20:15 63 F with fever and abdominal pain. Suspect sepsis 2/2 UTI vs pelvic fluid collection (possible abscess?) - Labs, cultures - Repeat CT - IVF, tylenol - Abx 04/25/19 21:56 CT unremarkable Will admit for urosepsis
[2019-04-25 20:43] LABS: URINE APPEARANCE TURBID; URINE BILIRUBIN NEGATIVE (NEGATIVE); URINE COLOR YELLOW; URINE GLUCOSE (UA) NEGATIVE (NEGATIVE); URINE KETONE NEGATIVE (NEGATIVE); URINE LEUK ESTERASE 3+ (NEGATIVE); URINE NITRITE POSITIVE (NEGATIVE); URINE PROTEIN 2+ (NEGATIVE); URINE UROBILINOGEN 0.2 mg/dL (0.2-1.0)
[2019-04-25] MEDS ORDERED: VANCOMYCIN 1 GRAM (PRE-DOCKED) 1,000 MG/250 ML BAG IVPB ONE (20:58)
[2019-04-25] MEDS ORDERED: PIPERACILLIN/TAZOB 3.375 GM 3.375 GM/50 ML BAG IVPB ONE (20:59)
[2019-04-25] MEDS ORDERED: ONDANSETRON 4 MG/2 ML VIAL IVPUSH ONE (21:18)
[2019-04-25] MEDS ORDERED: ONDANSETRON 4 MG/2 ML VIAL ONE (22:48)
--- NOTE | 2019-04-25 23:41 | HP ---
Admitting History and Physical - Primary Care Physician PCP: Dr. Iqbal - Admission Chief Complaint: fever, body aches History of Present Illness: 63 year old female with PMH HTN, HLD, NIDDM, vesiculovaginal fistula, recurrent multidrug resistant UTIs presented to ED for fever since 1300 today. Patient reported increasing lower abdominal pain and burning with urination. Patient has chronic lower abdominal pain with minimal relief with pain management. Patient pending urological surgery to correct her fistula, and is in the process of setting that up. Patient urologist is in [place], but she lives in [place]. Patient denies SOB,CP, N/V, chills, diarrhea, constipation. History Source: Patient Limitations to Obtaining History: No Limitations - Past Medical History Cardiovascular: Yes: HTN, Hyperlipdemia Renal/: Yes: UTI Psych: Yes: Depression Endocrine: Yes: Diabetes Mellitus - Past Surgical History Past Surgical History: Yes: Cholecystectomy, Hernia Repair, Hysterectomy, Tubal Ligation - Smoking History Smoking history: Never smoked Have you smoked in the past 12 months: No Aproximately how many cigarettes per day: 15 - Alcohol/Substance Use Hx Alcohol Use: No History of Substance Use: reports: None - Social History Usual Living Arrangement: Yes: With Child ADL: Independent History of Recent Travel: No Home Medications - Allergies Allergies/Adverse Reactions: Allergies Allergy/AdvReac Type Severity Reaction Status Date / Time Iodinated Contrast Media Allergy Verified 03/15/19 14:07 morphine AdvReac Verified 01/13/19 13:25 - Home Medications Home Medications: Ambulatory Orders Glyburide 5 mg PO BID 01/16/13 Meclizine HCl [Antivert -] 12.5 mg PO TID #10 tablet 01/16/13 Ramipril 5 mg PO DAILY 01/16/13 Simvastatin [Zocor -] 20 mg PO HS 01/16/13 metFORMIN HCL [Glucophage] 1,000 mg PO BID 01/16/13 Ketorolac Tromethamine [Toradol -] 10 mg PO Q6H #30 tablet 01/15/19 Sertraline HCl [Zoloft -] 25 mg PO DAILY tablet 01/15/19 Family Medical History Family History: Denies Review of Systems - Review of Systems Constitutional: reports: Fever Eyes: reports: No Symptoms HENT: reports: No Symptoms Neck: reports: No Symptoms Cardiovascular: reports: No Symptoms Respiratory: reports: No Symptoms Gastrointestinal: reports: Abdominal Pain Genitourinary: reports: Burning, Pain, Urgency Musculoskeletal: reports: No Symptoms Integumentary: reports: No Symptoms Neurological: reports: No Symptoms Endocrine: reports: No Symptoms Hematology/Lymphatic: reports: No Symptoms Psychiatric: reports: No Symptoms Physical Examination Vital Signs: Vital Signs Temperature 100.7 F H 04/25/19 19:40 Pulse Rate 115 H 04/25/19 19:40 Respiratory Rate 22 H 04/25/19 19:40 Blood Pressure 113/71 04/25/19 19:40 O2 Sat by Pulse Oximetry (%) 93 L 04/25/19 19:40 Constitutional: Yes: No Distress Eyes: Yes: Conjunctiva Clear, EOM Intact HENT: Yes: Atraumatic, Normocephalic Neck: Yes: Supple, Trachea Midline Cardiovascular: Yes: Regular Rate and Rhythm Respiratory: Yes: Regular, CTA Bilaterally Gastrointestinal: Yes: Normal Bowel Sounds, Soft Renal/: Yes: CVA Tenderness - Left (supra-pubic tenderness) Musculoskeletal: Yes: WNL Extremities: Yes: WNL Edema: No Peripheral Pulses WNL: Yes Neurological: Yes: Alert, Oriented Labs: CBC, BMP 04/25/19 19:28 04/25/19 19:28 Imaging - Results Chest X-ray: Report Reviewed (no infiltrate.) Cat Scan: Report Reviewed (CT ABD IMPRESSION: Abundant stool throughout the colon from cecum to the rectum. There is some redundancy of the ascending colon and splenic flexure segments. Small hiatal hernia. Cholecystectomy and a hysterectomy in the past. Chronic disc degeneration is noted at the L2-3 level with loss of disc height. The study is otherwise unremarkable.) EKG: Report Reviewed (rate 106, regular rhythm, nonspecific ST changes.) Problem List - Problems (1) Sepsis Code(s): A41.9 - SEPSIS, UNSPECIFIED ORGANISM (2) UTI (urinary tract infection) Code(s): N39.0 - URINARY TRACT INFECTION, SITE NOT SPECIFIED Qualifiers: Urinary tract infection type: acute cystitis Hematuria presence: with hematuria Qualified Code(s): N30.01 - Acute cystitis with hematuria (3) Lactic acidosis Code(s): E87.2 - ACIDOSIS (4) LONG (acute kidney injury) Code(s): N17.9 - ACUTE KIDNEY FAILURE, UNSPECIFIED (5) Nausea Code(s): R11.0 - NAUSEA (6) Hyponatremia Code(s): E87.1 - HYPO-OSMOLALITY AND HYPONATREMIA (7) Constipation Code(s): K59.00 - CONSTIPATION, UNSPECIFIED (8) HTN (hypertension) Code(s): I10 - ESSENTIAL (PRIMARY) HYPERTENSION (9) HLD (hyperlipidemia) Code(s): E78.5 - HYPERLIPIDEMIA, UNSPECIFIED (10) Depression Code(s): F32.9 - MAJOR DEPRESSIVE DISORDER, SINGLE EPISODE, UNSPECIFIED (11) Diabetes Code(s): E11.9 - TYPE 2 DIABETES MELLITUS WITHOUT COMPLICATIONS Qualifiers: Diabetes mellitus type: type 2 (12) Vesicovaginal fistula Code(s): N82.0 - VESICOVAGINAL FISTULA Assessment/Plan 63 year old female with PMH HTN, HLD, NIDDM, vesiculovaginal fistula, recurrent multidrug resistant UTIs presented to ED for fever since 1300 today. Patient reported increasing lower abdominal pain and burning with urination. Patient has chronic lower abdominal pain with minimal relief with pain management. # sepsis 2/2 UTI # Elevated Lactic acidosis CT Abd: Abundant stool throughout the colon from cecum to the rectum. There is some redundancy of the ascending colon and splenic flexure segments. Small hiatal hernia. Cholecystectomy and a hysterectomy in the past. Chronic disc degeneration is noted at the L2-3 level with loss of disc height. Leukocytosis with left shift, lactic 2.3, + UA s/p 2 l IVF, Vanco and zosyn, antipyretic in ED repeat lactic wnl post IVF 2 L continue with Zosyn, Vancomycin IV continue with IV fluids Pain management Antipyretic PRN repeat cbc, bmp follow blood and urine cx, adjust antibiotics based on sensitivity follow up ID in Am consider urology consult if needed #nausea - zofran 4 mg IV once in ED with relief - monitor, if continues will add zofran PRN # LONG # Hyponatremia s/p 2 L NS in ED continue with IVF monitor BMP avoid nephro toxic drugs # Constipation CT Abd: Abundant stool throughout the colon miralax x1 now then daily #HTN, HLD Hold Ramapril Simvastatin 20 mg PO HS monitor BP follow up lipids #NIDDM Glyburide 5 mg PO BID monitor fsbs BID, cover with Novolog sliding scale follow up A1c # Depression Sertraline HCl 25 mg PO DAILY #vesiculovaginal fistula pending outpatient urology follow up FEN: IV fluids, correct lytes, Cardiac diet VTE: heparin Admission: Inpatient medicine Visit type - Emergency Visit Emergency Visit: Yes ED Registration Date: 04/25/19 Care time: The patient presented to the Emergency Department on the above date and was hospitalized for further evaluation of their emergent condition. - New Patient This patient is new to me today: Yes Date on this admission: 04/26/19 - Critical Care Critical Care patient: No
[2019-04-26] MEDS ORDERED: SODIUM CHLORIDE 1,000 ML IV SCH ×2 (00:15→07:53)
[2019-04-26] MEDS ORDERED: VANCOMYCIN 1,000 MG in DEXTROSE 5%-WATER - 250 ML IVPB SCH (00:15)
[2019-04-26] MEDS ORDERED: POLYETHYLENE GLYCOL 3350 119 GM BTL PO ONE (00:21)
[2019-04-26] MEDS ORDERED: ACETAMINOPHEN 325 MG TABLET (FP) ONE (01:13)
[2019-04-26] MEDS: ACETAMINOPHEN 325 MG TABLET (FP) PO PRN ×2 (01:18→10:31)
[2019-04-26] MEDS ORDERED: PIPERACILLIN/TAZOBACTAM 3.375 GM VIAL IVPB ONE ×3 (06:00→17:14)
[2019-04-26] MEDS ORDERED: DEXTROSE 5%-WATER - 50 ML IVPB ONE ×3 (06:00→17:14)
[2019-04-26] MEDS: PIPERACILLIN/TAZOB 3.375 GM 3.375 GM in DEXTROSE 5%-WATER - 50 ML IVPB SCH ×4 (06:29→17:24)
[2019-04-26] MEDS: KETOROLAC TROMETHAMINE 10 MG TABLET PO SCH ×3 (06:34→18:37)
[2019-04-26] MEDS ORDERED: glyBURIDE 5 MG TABLET (UD) PO SCH (07:00)
[2019-04-26] MEDS ORDERED: SODIUM CHLORIDE 250 ML IV STA (07:50)
[2019-04-26] MEDS: INSULIN SLIDING SCALE (NOVOLOG) 1 VIAL SQ SCH ×2 (08:30→17:11)
[2019-04-26] MEDS ORDERED: INSULIN (NOVOLOG) ASPART 100 UNITS/ML 10ML VIAL ONE (08:44)
[2019-04-26 08:57] LABS: HEMATOCRIT 22.8 % (32.4-45.2); MCH 31.1 pg (25.7-33.7); MEAN CELL VOLUME 88.8 fl (80-96); MEAN PLT VOLUME 8.8 fl (7.5-11.1); PLATELET COUNT 139 K/MM3 (134-434); RBC 2.57 M/mm3 (3.60-5.2); RDW 11.9 % (11.6-15.6); WHITE BLOOD COUNT 9.3 K/mm3 (4.0-10.0)
[2019-04-26 09:17] LABS: BLOOD UREA NITROGEN 37.6 mg/dL (7-18); CALCIUM 7.7 mg/dL (8.5-10.1); CREATININE 1.5 mg/dL (0.55-1.3)
[2019-04-26 09:31] LABS: CHOLESTEROL 88 mg/dL (50-200); HDL CHOLESTEROL 29 mg/dL (40-60); LDL CHOLESTEROL (ONLY SJRH) 49 mg/dL (5-100); TRIGLYCERIDES 114 mg/dL (0-150)
[2019-04-26] MEDS: HEPARIN NA (PORCINE) 5,000 UNITS/ML 1ML VIAL SQ SCH ×2 (09:31→21:04)
[2019-04-26] MEDS: SERTRALINE HCL 25 MG TABLET (FP) PO SCH (09:31)
[2019-04-26] MEDS ORDERED: SODIUM CHLORIDE 0.9% 250 ML INFUS.BAG IV ONE (09:50)
--- NOTE | 2019-04-26 10:16 | CON.ID ---
Consult Consult Specialty:: infectious disease Referred by:: dr chacon Reason for Consultation:: gram negative bacteremia - History of Present Illness Chief Complaint: abdominal pain chronic. fevers - ?one week. dysuria History of Present Illness: very poor historian notes chronic abdominal pain for years after hysterectomy (20 years ago) diagnosed with vesicovagianl fistula one year ago- has nt had a repair last hospitalized end of February for UTI/pelvic pain daughter at bedside reports she eats poorly and doesn't like to drink fluid as it makes her urinate frequently that noted she had chills last night and brought her to the ED she denies vomiting or diarrhea +BM yesterday no recent antibiotics rarely goes out lives with her daughter - History Source History Provided By: Patient, Family Member Limitations to Obtaining History: Poor Historian - Past Medical History Cardio/Vascular: Yes: HTN, Hyperlipdemia Renal/: Yes: UTI Reproductive: Yes: Other (vesicovaginal fistula) Psych: Yes: Depression Endocrine: Yes: Diabetes Mellitus - Past Surgical History Past Surgical History: Yes: Cholecystectomy, Hernia Repair, Hysterectomy, Tubal Ligation - Alcohol/Substance Use Hx Alcohol Use: No History of Substance Use: reports: None - Smoking History Smoking history: Current every day smoker Have you smoked in the past 12 months: Yes Aproximately how many cigarettes per day: 15 - Social History Usual Living Arrangement: With Child ADL: Independent Occupation: not working History of Recent Travel: No Home Medications - Allergies Allergies/Adverse Reactions: Allergies Allergy/AdvReac Type Severity Reaction Status Date / Time Iodinated Contrast Media Allergy Verified 03/15/19 14:07 morphine AdvReac Verified 01/13/19 13:25 - Home Medications Home Medications: Ambulatory Orders Glyburide 5 mg PO BID 01/16/13 Meclizine HCl [Antivert -] 12.5 mg PO TID #10 tablet 01/16/13 Ramipril 5 mg PO DAILY 01/16/13 Simvastatin [Zocor -] 20 mg PO HS 01/16/13 metFORMIN HCL [Glucophage] 1,000 mg PO BID 01/16/13 Ketorolac Tromethamine [Toradol -] 10 mg PO Q6H #30 tablet 01/15/19 Oxycodone HCl 10 mg PO TID 04/28/19 Acetaminophen [Tylenol .Regular Strength -] 650 mg PO Q6H PRN tablet 05/05/19 Magnesium Oxide [Mag-Ox -] 400 mg PO BID tablet 05/05/19 Pantoprazole Sodium [Protonix -] 40 mg PO DAILY #30 tablet.ec 05/05/19 Polyethylene Glycol 3350 [Miralax 119 gm Btl -] 17 gm PO DAILY #1 bottle Potassium Chloride [K-Dur -] 10 meq PO DAILY #30 tablet.er 05/05/19 Sertraline HCl [Zoloft -] 25 mg PO DAILY #30 tablet 05/05/19 Sulfamethoxazole/Trimethoprim [Bactrim Ds Tablet] 1 each PO BID #14 tablet 05/05 Family Medical History Family History: Denies Review of Systems - Review of Systems Constitutional: reports: Chills, Fever Eyes: reports: No Symptoms HENT: reports: No Symptoms. denies: Difficult Swallowing Neck: reports: No Symptoms Cardiovascular: reports: No Symptoms. denies: Chest Pain, Edema Respiratory: reports: No Symptoms. denies: Cough Gastrointestinal: reports: Abdominal Pain. denies: Constipation, Diarrhea, Vomiting Genitourinary: reports: Burning, Dysuria, Incontinence Musculoskeletal: reports: Back Pain Integumentary: reports: No Symptoms Neurological: reports: No Symptoms Physical Exam Vital Signs: Vital Signs Temperature 98.7 F 04/26/19 07:48 Pulse Rate 92 H 04/26/19 09:38 Respiratory Rate 18 04/26/19 09:38 Blood Pressure 84/54 L 04/26/19 09:38 O2 Sat by Pulse Oximetry (%) 95 04/26/19 02:40 Constitutional: Yes: Well Nourished, No Distress, Calm Eyes: Yes: Conjunctiva Clear, EOM Intact HENT: Yes: Atraumatic, Normocephalic Neck: Yes: Supple, Trachea Midline Cardiovascular: Yes: Regular Rate and Rhythm Respiratory: Yes: Regular, CTA Bilaterally Gastrointestinal: Yes: Normal Bowel Sounds, Soft, Other (lower abdominal pain with palpation) ...Rectal Exam: Yes: Deferred Renal/: Yes: CVA Tenderness - Left, CVA Tenderness - Right Extremities: Yes: WNL Edema: No Psychiatric: Yes: Alert, Oriented Labs: CBC, BMP 04/26/19 07:26 04/26/19 07:26 Microbiology 04/25/19 19:32 Blood - Peripheral Venous Blood Culture - Preliminary Pending Organism 04/25/19 19:28 Blood - Peripheral Venous Blood Culture - Preliminary Pending Organism Imaging - Results Chest X-ray: Report Reviewed, Image Reviewed Cat Scan: Report Reviewed (fecal retention) Problem List - Problems (1) Gram negative sepsis Code(s): A41.50 - GRAM-NEGATIVE SEPSIS, UNSPECIFIED (2) Pyelonephritis Code(s): N12 - TUBULO-INTERSTITIAL NEPHRITIS, NOT SPCF ACUTE OR CHRONIC (3) LONG (acute kidney injury) Code(s): N17.9 - ACUTE KIDNEY FAILURE, UNSPECIFIED (4) Vesicovaginal fistula Code(s): N82.0 - VESICOVAGINAL FISTULA Assessment/Plan d/w dr richards continue zosyn iv fluid bolus for hypotension repeat lactic acid ICU evaluation d/w daughter at bedside over 35 minutes sent in the care of this patient
--- NOTE | 2019-04-26 10:38 | EKG ---
Test Reason : Blood Pressure : / mmHG Vent. Rate : 106 BPM Atrial Rate : 106 BPM P-R Int : 128 ms QRS Dur : 082 ms QT Int : 310 ms P-R-T Axes : 025 -36 -10 degrees QTc Int : 411 ms SINUS TACHYCARDIA LEFT AXIS DEVIATION MINIMAL VOLTAGE CRITERIA FOR LVH, MAY BE NORMAL VARIANT NONSPECIFIC ST AND T WAVE ABNORMALITY ABNORMAL ECG WHEN COMPARED WITH ECG OF 17-MAR-2019 09:18, T WAVE VARIATION Confirmed by WANDA PETTY, EDEL ([id number]) on 04/26/2019 10:38:01 AM Referred By: Confirmed By:EDEL MUÑOZ MD
[2019-04-26] MEDS: SODIUM CHLORIDE 1,000 ML IV SCH (11:25)
--- NOTE | 2019-04-26 11:29 | PN ---
Progress Note, Physician Chief Complaint: pateint seen and examined temp 100.2 BP in hig 80's systolic got 2 litres in Er now got anoter 250cc ivf on ivf 150cc /hr admitted with UTI lacitc acid and wbc improved since admission - Current Medication List Current Medications: Active Medications Acetaminophen (Tylenol -) 650 mg PO Q6H PRN PRN Reason: FEVER Last Admin: 04/26/19 10:31 Dose: 650 mg Atorvastatin Calcium (Lipitor -) 10 mg PO HS AYAD Glyburide (Diabeta -) 5 mg PO BIDAC AYAD Last Admin: 04/26/19 08:30 Dose: 5 mg Heparin Sodium (Porcine) (Heparin -) 5,000 unit SQ BID AYAD Last Admin: 04/26/19 09:31 Dose: 5,000 unit Piperacillin Sod/Tazobactam (Sod 3.375 gm/ Dextrose) 50 mls @ 100 mls/hr IVPB Q8H-IV AYAD; Protocol Stop: 04/26/19 12:29 Last Admin: 04/26/19 11:16 Dose: 100 mls/hr Piperacillin Sod/Tazobactam (Sod 3.375 gm/ Dextrose) 50 mls @ 100 mls/hr IVPB Q8H-IV AYAD; Protocol Last Admin: 04/26/19 11:18 Dose: Not Given Sodium Chloride (Normal Saline -) 1,000 mls @ 150 mls/hr IV ASDIR AYAD Insulin Aspart (Novolog Vial Sliding Scale -) 1 vial SQ BIDAC AYAD; Protocol Last Admin: 04/26/19 08:30 Dose: 2 units Ketorolac Tromethamine (Toradol) 10 mg PO Q6HPO [facility] Stop: 05/01/19 05:59 Last Admin: 04/26/19 06:34 Dose: 10 mg Polyethylene Glycol (Miralax (For Daily Use) -) 17 gm PO DAILY [facility] Sertraline HCl (Zoloft -) 25 mg PO DAILY [facility] Last Admin: 04/26/19 09:31 Dose: 25 mg - Objective Vital Signs: Vital Signs Temperature 98.7 F 04/26/19 07:48 Pulse Rate 76 04/26/19 11:20 Respiratory Rate 18 04/26/19 11:20 Blood Pressure 88/56 L 04/26/19 11:20 O2 Sat by Pulse Oximetry (%) 95 04/26/19 02:40 Constitutional: Yes: Calm Cardiovascular: Yes: Regular Rate and Rhythm, S1, S2 Respiratory: Yes: CTA Bilaterally Gastrointestinal: Yes: Tenderness (CVA and right inginual region) Edema: No Labs: CBC, BMP 04/26/19 07:26 04/26/19 07:26 INR, PTT INR 1.13 (0.83-1.09) H 04/25/19 19:28 Problem List - Problems (1) LONG (acute kidney injury) Assessment/Plan: ivf creatinine trendig down Code(s): N17.9 - ACUTE KIDNEY FAILURE, UNSPECIFIED (2) Gram negative sepsis Assessment/Plan: a Microbiology 03/16/19 10:30 Urine - Urine Clean Catch Urine Culture - Final Escherichia Coli 04/25/19 19:32 Blood - Peripheral Venous Blood Culture - Preliminary Pending Organism 04/25/19 19:28 Blood - Peripheral Venous Blood Culture - Preliminary Pending Organism gram negative baccilli iv abx Code(s): A41.50 - GRAM-NEGATIVE SEPSIS, UNSPECIFIED (3) Hypotension Assessment/Plan: bolus nad ivf at 150cc icu eval for low BP keep MAP> 55 lactic acid improved bicarbonate still low gram negative bacteremia with UTI Code(s): I95.9 - HYPOTENSION, UNSPECIFIED (4) Diabetes Assessment/Plan: sliding scale bgm hgab1c 7.4 dc metformin given lactic acidosis on admission hiold oral hypoglycemi medications Code(s): E11.9 - TYPE 2 DIABETES MELLITUS WITHOUT COMPLICATIONS
[2019-04-26] MEDS: POLYETHYLENE GLYCOL 3350 119 GM BTL PO SCH (11:42)
[2019-04-26] MEDS ORDERED: SODIUM CHLORIDE 500 ML IV STA ×2 (12:58→17:59)
--- NOTE | 2019-04-26 13:41 | CONSULT ---
Consultation: REQUESTING PROVIDER: CONSULT REQUEST: We have been asked to medically evaluate this patient for ICU monitoring for hypotension. HISTORY OF PRESENT ILLNESS: 63 y/o/f with PMHx of HTN, HLD, NIDDM, vesiculovaginal fistula, recurrent multidrug resistant UTIs presented to ED for fever, abd pain, and dysuria. Patient has chronic lower abdominal pain with minimal relief with pain management. Patient pending urological surgery to correct her fistula, and is in the process of setting that up. Patient was admitted to floors for sepsis secondary to UTI but has been consistently hypotensive despite adequate fluid resuscitation. She denies SOB, chest pain, headache, N/V/D, hematuria, constipation, chills. REVIEW OF SYSTEMS: As per HPI PHYSICAL EXAMINATION Vital Signs - 24 hr 04/25/19 04/25/19 04/26/19 19:40 23:27 01:19 Temperature 100.7 F H 98.4 F 98.0 F Pulse Rate 115 H Pulse Rate [ 82 107 H Left Radial] Respiratory 22 H 18 20 Rate Blood Pressure 113/71 Blood Pressure 90/54 L 98/54 L [Left Arm] O2 Sat by Pulse 93 L 96 Oximetry (%) 04/26/19 04/26/19 04/26/19 02:40 05:00 07:48 Temperature 100.2 F H 99.1 F 98.7 F Pulse Rate 100 H 102 H 100 H Pulse Rate [ Left Radial] Respiratory 20 20 18 Rate Blood Pressure 106/44 L 80/49 L 88/48 L Blood Pressure [Left Arm] O2 Sat by Pulse 95 Oximetry (%) 04/26/19 04/26/19 04/26/19 09:00 09:38 11:20 Temperature Pulse Rate 92 H 76 Pulse Rate [ Left Radial] Respiratory 18 18 Rate Blood Pressure 84/54 L 88/56 L Blood Pressure [Left Arm] O2 Sat by Pulse 96 Oximetry (%) GENERAL: Awake, alert, and fully oriented, in no acute distress. HEAD: Normal with no signs of trauma. EYES: EOMI, no scleral icterus EARS, NOSE, THROAT: dry mucous membranes, poor oral dentition NECK: supple, trachea midline LUNGS: decreased breath sounds bilaterally, no wheezing, crackles. no accessory muscle use HEART: tachycardic ABDOMEN: Tenderness to palpation over RLQ, soft, nondistended, normoactive bowel sounds, no guarding MUSCULOSKELETAL: No CVA tenderness EXTREMITIES: 2+ pulses, warm, well-perfused. No calf tenderness. No peripheral edema. NEUROLOGICAL: Normal speech, gait not observed PSYCHIATRIC: Cooperative. Good eye contact. Appropriate mood and affect. SKIN: Warm, dry Laboratory Results - last 24 hr 04/25/19 04/25/19 04/25/19 19:28 19:28 19:28 WBC 12.9 H RBC 3.32 L Hgb 10.1 L Hct 30.0 L D MCV 90.1 MCH 30.4 MCHC 33.7 RDW 12.2 Plt Count 188 MPV 8.8 Absolute Neuts (auto) 11.4 H Neutrophils % 88.7 H D Lymphocytes % 4.0 L D Monocytes % 6.7 Eosinophils % 0.0 D Basophils % 0.6 Nucleated RBC % 0 PT with INR 13.30 H INR 1.13 H PTT (Actin FS) 28.5 VBG pH POC VBG pCO2 POC VBG pO2 VBG HCO3 VBG O2 Sat ([place]) VBG Base Excess Sodium Potassium Chloride Carbon Dioxide Anion Gap BUN Creatinine Est GFR (CKD-EPI)AfAm Est GFR (CKD-EPI)NonAf POC Glucometer Random Glucose Hemoglobin A1c % Lactic Acid Calcium Total Bilirubin AST ALT Alkaline Phosphatase Troponin I < 0.02 Total Protein Albumin Triglycerides Cholesterol Total LDL Cholesterol HDL Cholesterol Urine Color Urine Appearance Urine pH Ur Specific [place] Urine Protein Urine Glucose (UA) Urine Ketones Urine Blood Urine Nitrite Urine Bilirubin Urine Urobilinogen Ur Leukocyte Esterase Urine RBC (Auto) 04/25/19 04/25/19 04/25/19 19:28 19:28 19:28 WBC RBC Hgb Hct MCV MCH MCHC RDW Plt Count MPV Absolute Neuts (auto) Neutrophils % Lymphocytes % Monocytes % Eosinophils % Basophils % Nucleated RBC % PT with INR INR PTT (Actin FS) VBG pH Cancelled POC VBG pCO2 Cancelled POC VBG pO2 Cancelled VBG HCO3 Cancelled VBG O2 Sat ([place]) Cancelled VBG Base Excess Cancelled Sodium 132 L Potassium 3.8 Chloride 104 Carbon Dioxide 15 L Anion Gap 13 BUN 46.9 H Creatinine 1.9 H Est GFR (CKD-EPI)AfAm 31.51 Est GFR (CKD-EPI)NonAf 27.19 POC Glucometer Random Glucose 260 H Hemoglobin A1c % Lactic Acid 2.3 H* Calcium 8.4 L Total Bilirubin 0.2 AST 14 L ALT 16 Alkaline Phosphatase 77 Troponin I Total Protein 6.7 Albumin 3.2 L Triglycerides Cholesterol Total LDL Cholesterol HDL Cholesterol Urine Color Urine Appearance Urine pH Ur Specific [place] Urine Protein Urine Glucose (UA) Urine Ketones Urine Blood Urine Nitrite Urine Bilirubin Urine Urobilinogen Ur Leukocyte Esterase Urine RBC (Auto) 04/25/19 04/25/19 04/26/19 20:22 23:30 06:26 WBC RBC Hgb Hct MCV MCH MCHC RDW Plt Count MPV Absolute Neuts (auto) Neutrophils % Lymphocytes % Monocytes % Eosinophils % Basophils % Nucleated RBC % PT with INR INR PTT (Actin FS) VBG pH POC VBG pCO2 POC VBG pO2 VBG HCO3 VBG O2 Sat ([place]) VBG Base Excess Sodium Potassium Chloride Carbon Dioxide Anion Gap BUN Creatinine Est GFR (CKD-EPI)AfAm Est GFR (CKD-EPI)NonAf POC Glucometer 200 Random Glucose Hemoglobin A1c % Lactic Acid 1.5 Calcium Total Bilirubin AST ALT Alkaline Phosphatase Troponin I Total Protein Albumin Triglycerides Cholesterol Total LDL Cholesterol HDL Cholesterol Urine Color Yellow Urine Appearance Turbid Urine pH 5.0 Ur Specific [place] 1.017 Urine Protein 2+ H Urine Glucose (UA) Negative Urine Ketones Negative Urine Blood 3+ H Urine Nitrite Positive H Urine Bilirubin Negative Urine Urobilinogen 0.2 Ur Leukocyte Esterase 3+ H Urine RBC (Auto) web operations lead 04/26/19 04/26/19 04/26/19 07:26 07:26 07:26 WBC 9.3 RBC 2.57 L Hgb 8.0 L Hct 22.8 L D MCV 88.8 MCH 31.1 MCHC 35.0 RDW 11.9 Plt Count 139 D MPV 8.8 Absolute Neuts (auto) Neutrophils % Lymphocytes % Monocytes % Eosinophils % Basophils % Nucleated RBC % PT with INR INR PTT (Actin FS) VBG pH POC VBG pCO2 POC VBG pO2 VBG HCO3 VBG O2 Sat ([place]) VBG Base Excess Sodium 140 Potassium 3.0 L Chloride 114 H Carbon Dioxide 15 L Anion Gap 11 BUN 37.6 H Creatinine 1.5 H Est GFR (CKD-EPI)AfAm 41.94 Est GFR (CKD-EPI)NonAf 36.18 POC Glucometer Random Glucose 211 H Hemoglobin A1c % 7.6 H Lactic Acid Calcium 7.7 L Total Bilirubin AST ALT Alkaline Phosphatase Troponin I Total Protein Albumin Triglycerides Cholesterol Total LDL Cholesterol HDL Cholesterol Urine Color Urine Appearance Urine pH Ur Specific [place] Urine Protein Urine Glucose (UA) Urine Ketones Urine Blood Urine Nitrite Urine Bilirubin Urine Urobilinogen Ur Leukocyte Esterase Urine RBC (Auto) 04/26/19 04/26/19 07:26 10:59 WBC RBC Hgb Hct MCV MCH MCHC RDW Plt Count MPV Absolute Neuts (auto) Neutrophils % Lymphocytes % Monocytes % Eosinophils % Basophils % Nucleated RBC % PT with INR INR PTT (Actin FS) VBG pH POC VBG pCO2 POC VBG pO2 VBG HCO3 VBG O2 Sat ([place]) VBG Base Excess Sodium Potassium Chloride Carbon Dioxide Anion Gap BUN Creatinine Est GFR (CKD-EPI)AfAm Est GFR (CKD-EPI)NonAf POC Glucometer Random Glucose Hemoglobin A1c % Lactic Acid 1.9 Calcium Total Bilirubin AST ALT Alkaline Phosphatase Troponin I Total Protein Albumin Triglycerides 114 Cholesterol 88 Total LDL Cholesterol 49 HDL Cholesterol 29 L Urine Color Urine Appearance Urine pH Ur Specific [place] Urine Protein Urine Glucose (UA) Urine Ketones Urine Blood Urine Nitrite Urine Bilirubin Urine Urobilinogen Ur Leukocyte Esterase Urine RBC (Auto) Active Medications Generic Name Dose Route Start Last Admin Trade Name Freq PRN Reason Stop Dose Admin Acetaminophen 650 mg 04/26/19 00:14 04/26/19 10:31 Tylenol - PO 650 mg Q6H PRN Administration FEVER Atorvastatin Calcium 10 mg 04/26/19 22:00 Lipitor - PO HS AYAD Heparin Sodium (Porcine) 5,000 unit 04/26/19 10:00 04/26/19 09:31 Heparin - SQ 5,000 unit BID AYAD Administration Piperacillin Sod/Tazobactam 50 mls @ 100 mls/hr 04/26/19 10:00 04/26/19 11:18 Sod 3.375 gm/ Dextrose IVPB Not Given Q8H-IV AYAD Protocol Sodium Chloride 1,000 mls @ 150 mls/hr 04/26/19 11:20 04/26/19 11:25 Normal Saline - IV Not Given ASDIR AYAD Insulin Aspart 1 vial 04/26/19 07:00 04/26/19 08:30 Novolog Vial Sliding Scale - SQ 2 units BIDAC AYAD Administration Protocol Ketorolac Tromethamine 10 mg 04/26/19 06:00 04/26/19 06:34 Toradol PO 05/01/19 05:59 10 mg Q6HPO AYAD Administration Polyethylene Glycol 17 gm 04/26/19 10:00 04/26/19 11:42 Miralax (For Daily Use) - PO Not Given DAILY AYAD Sertraline HCl 25 mg 04/26/19 10:00 04/26/19 09:31 Zoloft - PO 25 mg DAILY AYAD Administration ASSESSMENT/PLAN: 63 y/o/f with PMHx of HTN, HLD, NIDDM, vesiculovaginal fistula, recurrent multidrug resistant UTIs presented to ED for fever, abd pain, and dysuria. Patient was admitted to floors for sepsis secondary to UTI but has been consistently hypotensive despite adequate fluid resuscitation. Accepted to ICU for hypotension likely requiring pressor support. #Neuro - AAOx3 - Continue Sertraline for depression #Cardio - patient continues to be hypotensive despite adequate fluid resuscitation - Trop negative - will place central line for pressor support as needed #Pulm - CXR with no acute process seen - Maintain SpO2 >90% #GI - CTAP - fecal retention with no evidence of acute pathology within the abdomen or pelvis - Miralax daily - H&H 01/14.8 #Renal - LONG resolving - avoid nephro toxic drugs #ID - Sepsis likely 2/2 UTI - Lactic acid normalized - Zosyn as per ID - WBC 12.9 -> 9.3, febrile overnight, monitor - f/u blood cx # - Hx of vesicovaginal fistula - will need outpatient urology follow up #Endo - BGM - ISS #Prophylaxis - Heparin - Protonix #FEN - monitor and replete lytes as needed - NS @150mls/hr - Na controlled diet #Dispo - ICU monitoring Visit type - Emergency Visit Emergency Visit: Yes ED Registration Date: 04/25/19 Care time: The patient presented to the Emergency Department on the above date and was hospitalized for further evaluation of their emergent condition. - New Patient This patient is new to me today: Yes Date on this admission: 04/27/19 - Critical Care Critical Care patient: Yes Total Critical Care Time (in minutes): 36 Critical Care Statement: The care of this patient involved high complexity decision making to prevent further life threatening deterioration of the patient 's condition and/or to evaluate & treat vital organ system(s) failure or risk of failure. ATTENDING PHYSICIAN STATEMENT I saw and evaluated the patient. I reviewed the resident's note and discussed the case with the resident. I agree with the resident's findings and plan as documented. SUBJECTIVE: OBJECTIVE: ASSESSMENT AND PLAN:
[2019-04-26] MEDS ORDERED: POTASSIUM CHLORIDE TABS 20 MEQ TABLET.ER (FP) PO ONE (13:55)
[2019-04-26] MEDS: PANTOPRAZOLE 40 MG TABLET (FP) PO SCH (14:14)
[2019-04-26 14:27] LABS: ALBUMIN 2.3 g/dl (3.4-5.0); BILIRUBIN,TOTAL 0.3 mg/dL (0.2-1); BLOOD UREA NITROGEN 36.6 mg/dL (7-18); CALCIUM 7.4 mg/dL (8.5-10.1); CREATININE 1.6 mg/dL (0.55-1.3); POTASSIUM 3.4 mmol/L (3.5-5.1); TOT PROT 5.3 g/dl (6.4-8.2)
--- NOTE | 2019-04-26 14:53 | PN ---
Teaching Attending Note Name of Resident: Harris Roland ATTENDING PHYSICIAN STATEMENT I saw and evaluated the patient. I reviewed the resident's note and discussed the case with the resident. I agree with the resident's findings and plan as documented. SUBJECTIVE: In brief, 63 F, HTN, HLD, NIDDM, known vesiculovaginal fistula, and recurrent multidrug resistant UTIs. Admitted via the ER due to fever, abdominal pain, and dysuria. Initially admitted to the medical floor. Called due to persistent hypotension despite IVF resuscitation. She is awake and alert. Denies CP or SOB. No travel history or sick contacts. Intake & Output 04/23/19 04/24/19 04/25/19 04/26/19 23:59 23:59 23:59 23:59 Intake Total 1835 Balance 1835 Weight 120 lb 124 lb 12.8 oz Last Vital Signs Temp Pulse Resp BP Pulse Ox 99.2 F 84 18 108/56 L 96 04/26/19 13:48 04/26/19 14:00 04/26/19 14:00 04/26/19 14:00 04/26/19 09:00 Home Medication List Medication Instructions Recorded Confirmed Type Glyburide 5 mg PO BID 01/16/13 04/25/19 History Ramipril 5 mg PO DAILY 01/16/13 04/25/19 History Simvastatin [Zocor -] 20 mg PO HS 01/16/13 04/25/19 History metFORMIN HCL [Glucophage] 1,000 mg PO BID 01/16/13 04/25/19 History Active Medications Generic Name Dose Route Start Last Admin Trade Name Freq PRN Reason Stop Dose Admin Acetaminophen 650 mg 04/26/19 00:14 04/26/19 10:31 Tylenol - PO 650 mg Q6H PRN Administration FEVER Atorvastatin Calcium 10 mg 04/26/19 22:00 Lipitor - PO HS AYAD Heparin Sodium (Porcine) 5,000 unit 04/26/19 10:00 04/26/19 09:31 Heparin - SQ 5,000 unit BID AYAD Administration Piperacillin Sod/Tazobactam 50 mls @ 100 mls/hr 04/26/19 10:00 04/26/19 11:18 Sod 3.375 gm/ Dextrose IVPB Not Given Q8H-IV AYAD Protocol Sodium Chloride 1,000 mls @ 150 mls/hr 04/26/19 11:20 04/26/19 11:25 Normal Saline - IV Not Given ASDIR AYAD Sodium Chloride 500 mls @ 250 mls/hr 04/26/19 12:58 04/26/19 13:00 Normal Saline - IV 04/26/19 14:57 250 mls/hr ASDIR STA Administration Insulin Aspart 1 vial 04/26/19 07:00 04/26/19 08:30 Novolog Vial Sliding Scale - SQ 2 units BIDAC AYAD Administration Protocol Ketorolac Tromethamine 10 mg 04/26/19 06:00 04/26/19 13:32 Toradol PO 05/01/19 05:59 Not Given Q6HPO AYAD Pantoprazole Sodium 40 mg 04/26/19 13:15 04/26/19 14:14 Protonix - PO 40 mg DAILY AYAD Administration Polyethylene Glycol 17 gm 04/26/19 10:00 04/26/19 11:42 Miralax (For Daily Use) - PO Not Given DAILY AYAD Sertraline HCl 25 mg 04/26/19 10:00 04/26/19 09:31 Zoloft - PO 25 mg DAILY AYAD Administration GENERAL: Awake, alert, and fully oriented, in no acute distress. HEAD: Normal with no signs of trauma. EYES: EOMI, no scleral icterus EARS, NOSE, THROAT: dry mucous membranes, poor oral dentition NECK: supple, trachea midline LUNGS: decreased breath sounds bilaterally, no wheezing, crackles. no accessory muscle use HEART: tachycardic ABDOMEN: Tenderness to palpation over RLQ, soft, nondistended, normoactive bowel sounds, no guarding MUSCULOSKELETAL: No CVA tenderness EXTREMITIES: 2+ pulses, warm, well-perfused. No calf tenderness. No peripheral edema. NEUROLOGICAL: Normal speech, gait not observed PSYCHIATRIC: Cooperative. Good eye contact. Appropriate mood and affect. SKIN: Warm, dry Laboratory Results - last 24 hr 04/25/19 04/25/19 04/25/19 19:28 19:28 19:28 WBC 12.9 H RBC 3.32 L Hgb 10.1 L Hct 30.0 L D MCV 90.1 MCH 30.4 MCHC 33.7 RDW 12.2 Plt Count 188 MPV 8.8 Absolute Neuts (auto) 11.4 H Neutrophils % 88.7 H D Lymphocytes % 4.0 L D Monocytes % 6.7 Eosinophils % 0.0 D Basophils % 0.6 Nucleated RBC % 0 PT with INR 13.30 H INR 1.13 H PTT (Actin FS) 28.5 VBG pH POC VBG pCO2 POC VBG pO2 VBG HCO3 VBG O2 Sat ([place]) VBG Base Excess Sodium Potassium Chloride Carbon Dioxide Anion Gap BUN Creatinine Est GFR (CKD-EPI)AfAm Est GFR (CKD-EPI)NonAf POC Glucometer Random Glucose Hemoglobin A1c % Lactic Acid Calcium Total Bilirubin AST ALT Alkaline Phosphatase Troponin I < 0.02 Total Protein Albumin Triglycerides Cholesterol Total LDL Cholesterol HDL Cholesterol Urine Color Urine Appearance Urine pH Ur Specific [place] Urine Protein Urine Glucose (UA) Urine Ketones Urine Blood Urine Nitrite Urine Bilirubin Urine Urobilinogen Ur Leukocyte Esterase Urine RBC (Auto) 04/25/19 04/25/19 04/25/19 19:28 19:28 19:28 WBC RBC Hgb Hct MCV MCH MCHC RDW Plt Count MPV Absolute Neuts (auto) Neutrophils % Lymphocytes % Monocytes % Eosinophils % Basophils % Nucleated RBC % PT with INR INR PTT (Actin FS) VBG pH Cancelled POC VBG pCO2 Cancelled POC VBG pO2 Cancelled VBG HCO3 Cancelled VBG O2 Sat ([place]) Cancelled VBG Base Excess Cancelled Sodium 132 L Potassium 3.8 Chloride 104 Carbon Dioxide 15 L Anion Gap 13 BUN 46.9 H Creatinine 1.9 H Est GFR (CKD-EPI)AfAm 31.51 Est GFR (CKD-EPI)NonAf 27.19 POC Glucometer Random Glucose 260 H Hemoglobin A1c % Lactic Acid 2.3 H* Calcium 8.4 L Total Bilirubin 0.2 AST 14 L ALT 16 Alkaline Phosphatase 77 Troponin I Total Protein 6.7 Albumin 3.2 L Triglycerides Cholesterol Total LDL Cholesterol HDL Cholesterol Urine Color Urine Appearance Urine pH Ur Specific [place] Urine Protein Urine Glucose (UA) Urine Ketones Urine Blood Urine Nitrite Urine Bilirubin Urine Urobilinogen Ur Leukocyte Esterase Urine RBC (Auto) 04/25/19 04/25/19 04/26/19 20:22 23:30 06:26 WBC RBC Hgb Hct MCV MCH MCHC RDW Plt Count MPV Absolute Neuts (auto) Neutrophils % Lymphocytes % Monocytes % Eosinophils % Basophils % Nucleated RBC % PT with INR INR PTT (Actin FS) VBG pH POC VBG pCO2 POC VBG pO2 VBG HCO3 VBG O2 Sat ([place]) VBG Base Excess Sodium Potassium Chloride Carbon Dioxide Anion Gap BUN Creatinine Est GFR (CKD-EPI)AfAm Est GFR (CKD-EPI)NonAf POC Glucometer 200 Random Glucose Hemoglobin A1c % Lactic Acid 1.5 Calcium Total Bilirubin AST ALT Alkaline Phosphatase Troponin I Total Protein Albumin Triglycerides Cholesterol Total LDL Cholesterol HDL Cholesterol Urine Color Yellow Urine Appearance Turbid Urine pH 5.0 Ur Specific [place] 1.017 Urine Protein 2+ H Urine Glucose (UA) Negative Urine Ketones Negative Urine Blood 3+ H Urine Nitrite Positive H Urine Bilirubin Negative Urine Urobilinogen 0.2 Ur Leukocyte Esterase 3+ H Urine RBC (Auto) hospital account liaison 04/26/19 04/26/19 04/26/19 07:26 07:26 07:26 WBC 9.3 RBC 2.57 L Hgb 8.0 L Hct 22.8 L D MCV 88.8 MCH 31.1 MCHC 35.0 RDW 11.9 Plt Count 139 D MPV 8.8 Absolute Neuts (auto) Neutrophils % Lymphocytes % Monocytes % Eosinophils % Basophils % Nucleated RBC % PT with INR INR PTT (Actin FS) VBG pH POC VBG pCO2 POC VBG pO2 VBG HCO3 VBG O2 Sat ([place]) VBG Base Excess Sodium 140 Potassium 3.0 L Chloride 114 H Carbon Dioxide 15 L Anion Gap 11 BUN 37.6 H Creatinine 1.5 H Est GFR (CKD-EPI)AfAm 41.94 Est GFR (CKD-EPI)NonAf 36.18 POC Glucometer Random Glucose 211 H Hemoglobin A1c % 7.6 H Lactic Acid Calcium 7.7 L Total Bilirubin AST ALT Alkaline Phosphatase Troponin I Total Protein Albumin Triglycerides Cholesterol Total LDL Cholesterol HDL Cholesterol Urine Color Urine Appearance Urine pH Ur Specific [place] Urine Protein Urine Glucose (UA) Urine Ketones Urine Blood Urine Nitrite Urine Bilirubin Urine Urobilinogen Ur Leukocyte Esterase Urine RBC (Auto) 04/26/19 04/26/19 07:26 10:59 WBC RBC Hgb Hct MCV MCH MCHC RDW Plt Count MPV Absolute Neuts (auto) Neutrophils % Lymphocytes % Monocytes % Eosinophils % Basophils % Nucleated RBC % PT with INR INR PTT (Actin FS) VBG pH POC VBG pCO2 POC VBG pO2 VBG HCO3 VBG O2 Sat ([place]) VBG Base Excess Sodium Potassium Chloride Carbon Dioxide Anion Gap BUN Creatinine Est GFR (CKD-EPI)AfAm Est GFR (CKD-EPI)NonAf POC Glucometer Random Glucose Hemoglobin A1c % Lactic Acid 1.9 Calcium Total Bilirubin AST ALT Alkaline Phosphatase Troponin I Total Protein Albumin Triglycerides 114 Cholesterol 88 Total LDL Cholesterol 49 HDL Cholesterol 29 L Urine Color Urine Appearance Urine pH Ur Specific [place] Urine Protein Urine Glucose (UA) Urine Ketones Urine Blood Urine Nitrite Urine Bilirubin Urine Urobilinogen Ur Leukocyte Esterase Urine RBC (Auto) ASSESSMENT/PLAN: Sepsis due to a source HTN HLD NIDDM Vesiculovaginal fistula Recurrent multidrug resistant UTIs LONG Anemia Aggressive IVF resuscitation Supplemental O2 as needed Strict I & O Low threshold for CVC insertion and pressors VTE prophylaxis ABX per ID Follow Renal function Normal transfusion thresholds Glycemic control ICU Monitoring for tenuous hemodynamics Dr Guerrero
--- NOTE | 2019-04-26 15:34 | CON.GU ---
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 Patient developed a uti that progressed to urosepsis with hypotension. The patient is with constant urinary leakage. - History Source History Provided By: Patient Limitations to Obtaining History: No Limitations - Past Medical History Cardio/Vascular: Yes: HTN, Hyperlipdemia Renal/: Yes: UTI Psych: Yes: Depression Endocrine: Yes: Diabetes Mellitus - Past Surgical History Past Surgical History: Yes: Cholecystectomy, Hernia Repair, Hysterectomy, Tubal Ligation - Alcohol/Substance Use Hx Alcohol Use: No History of Substance Use: reports: None - Smoking History Smoking history: Current every day smoker Have you smoked in the past 12 months: Yes Aproximately how many cigarettes per day: 15 - Social History Usual Living Arrangement: With Child ADL: Independent Occupation: not working History of Recent Travel: No Home Medications - Allergies Allergies/Adverse Reactions: Allergies Allergy/AdvReac Type Severity Reaction Status Date / Time Iodinated Contrast Media Allergy Verified 03/15/19 14:07 morphine AdvReac Verified 01/13/19 13:25 - Home Medications Home Medications: Ambulatory Orders Glyburide 5 mg PO BID 01/16/13 Meclizine HCl [Antivert -] 12.5 mg PO TID #10 tablet 01/16/13 Ramipril 5 mg PO DAILY 01/16/13 Simvastatin [Zocor -] 20 mg PO HS 01/16/13 metFORMIN HCL [Glucophage] 1,000 mg PO BID 01/16/13 Ketorolac Tromethamine [Toradol -] 10 mg PO Q6H #30 tablet 01/15/19 Sertraline HCl [Zoloft -] 25 mg PO DAILY tablet 01/15/19 Physical Exam- Vital Signs: Vital Signs Temperature 99.2 F 04/26/19 13:48 Pulse Rate 84 04/26/19 14:00 Respiratory Rate 18 04/26/19 14:00 Blood Pressure 108/56 L 04/26/19 14:00 O2 Sat by Pulse Oximetry (%) 96 04/26/19 09:00 Constitutional: Yes: Well Nourished, No Distress, Calm Eyes: Yes: WNL, Conjunctiva Clear, EOM Intact HENT: Yes: Atraumatic, Normocephalic Neck: Yes: WNL, Supple, Trachea Midline Cardiovascular: Yes: WNL Respiratory: Yes: Regular Gastrointestinal: Yes: Normal Bowel Sounds, Soft Renal/: Yes: WNL Kidneys: Yes: WNL Pelvis: Yes: Bladder Non Palpable Labs: CBC, BMP 04/26/19 07:26 04/26/19 13:20 Imaging - Results Cat Scan: Image Reviewed (no fluid collection/fecal retention noted) Assessment/Plan impression uti/urosepsis vesicovaginal fistula plan continue with antibiotics as per id patient will follow-up with her urologist as an outpatient
--- NOTE | 2019-04-26 16:46 | CONSULT ---
Consult Consult Specialty:: Nephrology Reason for Consultation:: LONG - History of Present Illness Chief Complaint: fever History of Present Illness: Pt is a 63 year old female with pmhx of htn, hld, dm, vesiculovaginal fistula and recurrent UTI who presents to the ER with fever. She was found to have a UTI and was found to be septic. She was transferred to the ICU for hypotension. I was called to evaluate her for LONG. Her renal function had initially gotten better. She complains of chills. She follows with a urologist as outpt however has not had the surgery to correct the fistula yet. - History Source History Provided By: Patient, Medical Record - Past Medical History Cardio/Vascular: Yes: HTN, Hyperlipdemia Renal/: Yes: UTI Psych: Yes: Depression Endocrine: Yes: Diabetes Mellitus - Past Surgical History Past Surgical History: Yes: Cholecystectomy, Hernia Repair, Hysterectomy, Tubal Ligation - Alcohol/Substance Use Hx Alcohol Use: No History of Substance Use: reports: None - Smoking History Smoking history: Current every day smoker Have you smoked in the past 12 months: Yes Aproximately how many cigarettes per day: 15 - Social History Usual Living Arrangement: With Child ADL: Independent Occupation: not working History of Recent Travel: No Home Medications - Allergies Allergies/Adverse Reactions: Allergies Allergy/AdvReac Type Severity Reaction Status Date / Time Iodinated Contrast Media Allergy Verified 03/15/19 14:07 morphine AdvReac Verified 01/13/19 13:25 - Home Medications Home Medications: Ambulatory Orders Glyburide 5 mg PO BID 01/16/13 Meclizine HCl [Antivert -] 12.5 mg PO TID #10 tablet 01/16/13 Ramipril 5 mg PO DAILY 01/16/13 Simvastatin [Zocor -] 20 mg PO HS 01/16/13 metFORMIN HCL [Glucophage] 1,000 mg PO BID 01/16/13 Ketorolac Tromethamine [Toradol -] 10 mg PO Q6H #30 tablet 01/15/19 Sertraline HCl [Zoloft -] 25 mg PO DAILY tablet 01/15/19 Family Medical History Family History: Denies Review of Systems - Review of Systems Constitutional: reports: Chills, Fever, Malaise Eyes: reports: No Symptoms HENT: reports: No Symptoms Neck: reports: No Symptoms Cardiovascular: reports: No Symptoms Respiratory: reports: No Symptoms Gastrointestinal: reports: No Symptoms Genitourinary: reports: No Symptoms Musculoskeletal: reports: No Symptoms Integumentary: reports: No Symptoms Neurological: reports: No Symptoms Endocrine: reports: No Symptoms Hematology/Lymphatic: reports: No Symptoms Psychiatric: reports: No Symptoms Physical Exam Vital Signs: Vital Signs Temperature 100.5 F H 04/26/19 14:30 Pulse Rate 92 H 04/26/19 16:00 Respiratory Rate 27 H 04/26/19 16:36 Blood Pressure 107/55 L 04/26/19 16:00 O2 Sat by Pulse Oximetry (%) 96 04/26/19 16:36 Constitutional: Yes: Calm Eyes: Yes: Conjunctiva Clear HENT: Yes: Atraumatic Neck: Yes: Supple Cardiovascular: Yes: S1, S2 Respiratory: Yes: CTA Bilaterally Gastrointestinal: Yes: Soft Musculoskeletal: Yes: WNL Edema: No Neurological: Yes: Oriented Psychiatric: Yes: Oriented Labs: CBC, BMP 04/26/19 07:26 04/26/19 13:20 Microbiology 04/25/19 19:32 Blood - Peripheral Venous Blood Culture - Preliminary Pending Organism 04/25/19 19:28 Blood - Peripheral Venous Blood Culture - Preliminary Pending Organism Laboratory Tests 03/16/19 04/25/19 04/25/19 06:35 19:28 20:22 Creatinine 1.0 1.9 H Urine Blood 3+ H Urine Nitrite Positive H Ur Leukocyte Esterase 3+ H 04/26/19 04/26/19 07:26 13:20 Creatinine 1.5 H 1.6 H Urine Blood Urine Nitrite Ur Leukocyte Esterase Imaging - Results Chest X-ray: Report Reviewed Problem List - Problems (1) LONG (acute kidney injury) Code(s): N17.9 - ACUTE KIDNEY FAILURE, UNSPECIFIED (2) Sepsis Code(s): A41.9 - SEPSIS, UNSPECIFIED ORGANISM Assessment/Plan Current Medications Generic Name Dose Route Start Last Admin Trade Name Freq PRN Reason Stop Dose Admin Acetaminophen 650 mg 04/26/19 00:14 04/26/19 10:31 Tylenol - PO 650 mg Q6H PRN Administration FEVER Atorvastatin Calcium 10 mg 04/26/19 22:00 Lipitor - PO HS AYAD Heparin Sodium (Porcine) 5,000 unit 04/26/19 10:00 12/02/19 09:31 Heparin - SQ 5,000 unit BID AYAD Administration Piperacillin Sod/Tazobactam 50 mls @ 100 mls/hr 04/26/19 10:00 04/26/19 11:18 Sod 3.375 gm/ Dextrose IVPB Not Given Q8H-IV AYAD Protocol Sodium Chloride 1,000 mls @ 150 mls/hr 04/26/19 11:20 04/26/19 11:25 Normal Saline - IV Not Given ASDIR AYAD Insulin Aspart 1 vial 04/26/19 07:00 04/26/19 08:30 Novolog Vial Sliding Scale - SQ 2 units BIDAC AYAD Administration Protocol Ketorolac Tromethamine 10 mg 04/26/19 06:00 04/26/19 13:32 Toradol PO 05/01/19 05:59 Not Given Q6HPO AYAD Pantoprazole Sodium 40 mg 04/26/19 13:15 04/26/19 14:14 Protonix - PO 40 mg DAILY AYAD Administration Polyethylene Glycol 17 gm 04/26/19 10:00 04/26/19 11:42 Miralax (For Daily Use) - PO Not Given DAILY [facility] Sertraline HCl 25 mg 04/26/19 10:00 04/26/19 09:31 Zoloft - PO 25 mg DAILY AYAD Administration Impression 1. LONG 2. sepsis 3. UTI 4. hypotension 5. anemia 6. vesiculovaginal fistula 7. metabolic acidosis Plan - cont fluids - monitor renal function - avoid nsaids - follow cultures - abx per medical team - agree with ICU transfer - LONG likely from sepsis and pre-renal disease - check urine lytes and oxyacetylene welder
--- NOTE | 2019-04-26 16:57 | PROC ---
Central Line Insertion Indication: CVP Monitoring, Vasopressor Risks and Benefits Explained: Yes Consent on Chart: Yes Central Line: Triple Lumen Catheter Anesthesia: 1% Lidocaine Sterile Technique: Yes Ultrasound Guided Assistance: Yes Position: Right Internal Jugular Post Insertion: Yes: Bilateral Breath Sounds, Bilateral Chest Expansion, Chest X-Ray Ordered Sterile Dressing Applied: Yes
[2019-04-26] MEDS ORDERED: NOREPINEPHRINE BITARTRATE 8,000 MCG in DEXTROSE 5%-WATER - 492 ML IV SCH (20:45)
[2019-04-26] MEDS ORDERED: NOREPINEPHRINE BITARTRATE 4 MG/4 ML ML IV ONE (20:48)
[2019-04-26] MEDS ORDERED: VANCOMYCIN 1 GRAM (PRE-DOCKED) 1,000 MG/250 ML BAG IVPB SCH (21:00)
[2019-04-26] MEDS: MUPIROCIN 2% TOPICAL OINTMENT FOR DECOLONIZATION NS SCH (21:04)
[2019-04-26] MEDS: CHLORHEXIDINE GLUCONATE 4% CLEANSER FOR DECOLONIZATION TP SCH (21:04)
[2019-04-26] MEDS: ATORVASTATIN CA 10 MG TABLET (FP) PO SCH (21:04)
[2019-04-26] MEDS ORDERED: MEROPENEM 1 GM VIAL (RESTRICTED TO ID) IVPB ONE (23:05)
[2019-04-26] MEDS ORDERED: DEXTROSE 5%-WATER 100 ML IVPB ONE (23:06)
[2019-04-26] MEDS: ACETAMINOPHEN 1000 MG/100 ML VIAL (NON FORMULARY) IVPB PRN (23:17)
[2019-04-26] MEDS: MEROPENEM 1 GM in DEXTROSE 5%-WATER 100 ML IVPB SCH (23:18)
[2019-04-27] MEDS ORDERED: PIPERACILLIN/TAZOB 3.375 GM 3.375 GM in DEXTROSE 5%-WATER - 50 ML IVPB SCH (02:00)
[2019-04-27 06:22] LABS: BASO % 0.2 % (0-2.0); EOS % 0.2 % (0-4.5); HEMATOCRIT 23.6 % (32.4-45.2); HEMOGLOBIN 8.2 GM/dL (10.7-15.3); LYMPH % 4.3 % (8-40); MCHC 34.7 g/dl (32.0-36.0); MEAN CELL VOLUME 89.2 fl (80-96); MEAN PLT VOLUME 8.9 fl (7.5-11.1); MONO % 9.3 % (3.8-10.2); PLATELET COUNT 121 K/MM3 (134-434); RBC 2.64 M/mm3 (3.60-5.2); RDW 12.2 % (11.6-15.6); WHITE BLOOD COUNT 10.3 K/mm3 (4.0-10.0)
[2019-04-27 06:47] LABS: BILIRUBIN,TOTAL 0.5 mg/dL (0.2-1); BLOOD UREA NITROGEN 24.7 mg/dL (7-18); CALCIUM 7.7 mg/dL (8.5-10.1); CREATININE 1.2 mg/dL (0.55-1.3); POTASSIUM 3.6 mmol/L (3.5-5.1)
[2019-04-27] MEDS: INSULIN SLIDING SCALE (NOVOLOG) 1 VIAL SQ SCH ×2 (07:39→18:02)
[2019-04-27] MEDS ORDERED: DEXTROSE 5%-WATER 100 ML IVPB ONE ×2 (08:51→21:01)
[2019-04-27] MEDS ORDERED: MEROPENEM 1 GM VIAL (RESTRICTED TO ID) IVPB ONE ×2 (08:51→21:01)
[2019-04-27] MEDS: ACETAMINOPHEN 1000 MG/100 ML VIAL (NON FORMULARY) IVPB PRN ×2 (08:57→15:45)
[2019-04-27] MEDS: HEPARIN NA (PORCINE) 5,000 UNITS/ML 1ML VIAL SQ SCH ×2 (09:02→21:41)
[2019-04-27] MEDS: PANTOPRAZOLE 40 MG TABLET (FP) PO SCH (09:03)
[2019-04-27] MEDS: MUPIROCIN 2% TOPICAL OINTMENT FOR DECOLONIZATION NS SCH ×2 (09:03→21:41)
[2019-04-27] MEDS: POLYETHYLENE GLYCOL 3350 119 GM BTL PO SCH (09:03)
[2019-04-27] MEDS: SERTRALINE HCL 25 MG TABLET (FP) PO SCH (09:04)
[2019-04-27 09:11] LABS: PLATELET ESTIMATE DECREASED
[2019-04-27] MEDS: MEROPENEM 1 GM in DEXTROSE 5%-WATER 100 ML IVPB SCH ×2 (09:28→21:41)
--- NOTE | 2019-04-27 09:35 | CONSULT ---
Consult Consult Specialty:: surgery Referred by:: Rasheed Reason for Consultation:: Abdominal pain - History of Present Illness Chief Complaint: R groin pain History of Present Illness: 63 yr old female with a known history of a vesiculo-vaginal fistula pending repair at [facility] was readmitted with urosepsis. She has a history of a right inguinal hernia repaired in the past with mesh from which she has been evaluated for chronic pain. She reports some constipation. - Past Medical History Cardio/Vascular: Yes: HTN, Hyperlipdemia Renal/: Yes: UTI Psych: Yes: Depression Endocrine: Yes: Diabetes Mellitus - Past Surgical History Past Surgical History: Yes: Cholecystectomy, Hernia Repair, Hysterectomy, Tubal Ligation - Alcohol/Substance Use Hx Alcohol Use: No History of Substance Use: reports: None - Smoking History Smoking history: Current every day smoker Have you smoked in the past 12 months: Yes Aproximately how many cigarettes per day: 15 - Social History Usual Living Arrangement: With Child ADL: Independent Occupation: not working History of Recent Travel: No Home Medications - Allergies Allergies/Adverse Reactions: Allergies Allergy/AdvReac Type Severity Reaction Status Date / Time Iodinated Contrast Media Allergy Verified 03/15/19 14:07 morphine AdvReac Verified 01/13/19 13:25 - Home Medications Home Medications: Ambulatory Orders Glyburide 5 mg PO BID 01/16/13 Meclizine HCl [Antivert -] 12.5 mg PO TID #10 tablet 01/16/13 Ramipril 5 mg PO DAILY 01/16/13 Simvastatin [Zocor -] 20 mg PO HS 01/16/13 metFORMIN HCL [Glucophage] 1,000 mg PO BID 01/16/13 Ketorolac Tromethamine [Toradol -] 10 mg PO Q6H #30 tablet 01/15/19 Sertraline HCl [Zoloft -] 25 mg PO DAILY tablet 01/15/19 Physical Exam Vital Signs: Vital Signs Temperature 98.2 F 04/27/19 05:00 Pulse Rate 72 04/27/19 08:02 Respiratory Rate 22 H 04/27/19 07:58 Blood Pressure 143/56 L 04/27/19 08:02 O2 Sat by Pulse Oximetry (%) 99 04/27/19 07:37 Gastrointestinal: Yes: Tenderness (Tenderness in the right groin region with induration consistent with mesh) Labs: CBC, BMP 04/27/19 05:10 04/27/19 05:10 Imaging - Results Cat Scan: Report Reviewed, Image Reviewed Problem List - Problems (1) Gram negative sepsis Code(s): A41.50 - GRAM-NEGATIVE SEPSIS, UNSPECIFIED Assessment/Plan Recommend ultrasound of the right groin region Ct scan show a reducible hernia with no evidence of incarceration continue observation no need for surgical intervention
--- NOTE | 2019-04-27 11:39 | PN ---
Progress Note, Physician Chief Complaint: ASLEEP, COMFORTABLE EVENTS AND NOTES REVIEWED - Current Medication List Current Medications: Active Medications Acetaminophen (Tylenol -) 650 mg PO Q6H PRN PRN Reason: FEVER Last Admin: 04/26/19 10:31 Dose: 650 mg Acetaminophen (Ofirmev Injection -) 1,000 mg IVPB Q6H PRN PRN Reason: PAIN Last Admin: 04/27/19 08:57 Dose: 1,000 mg Atorvastatin Calcium (Lipitor -) 10 mg PO HS AYAD Last Admin: 04/26/19 21:04 Dose: 10 mg Chlorhexidine Gluconate (Hibiclens For Decolonization -) 1 applic TP HS [facility] Last Admin: 04/26/19 21:04 Dose: 1 applic Heparin Sodium (Porcine) (Heparin -) 5,000 unit SQ BID [facility] Last Admin: 04/27/19 09:02 Dose: 5,000 unit Sodium Chloride (Normal Saline -) 1,000 mls @ 150 mls/hr IV ASDIR [facility] Last Admin: 04/26/19 11:25 Dose: Not Given Norepinephrine Bitartrate 8, (000 mcg/ Dextrose) 500 mls @ 18.75 mls/hr IV TITR [facility]; Protocol Last Titration: 04/27/19 08:02 Dose: 2 mcg/min, 7.5 mls/hr Meropenem 1 gm/ Dextrose 100 mls @ 200 mls/hr IVPB Q12H [facility] Last Admin: 04/27/19 09:28 Dose: 200 mls/hr Insulin Aspart (Novolog Vial Sliding Scale -) 1 vial SQ BIDAC [facility]; Protocol Last Admin: 04/27/19 07:39 Dose: 2 units Mupirocin (Bactroban Ointment (For Decolonization) -) 1 applic NS BID [facility] Stop: 05/01/19 21:59 Last Admin: 04/27/19 09:03 Dose: 1 applic Pantoprazole Sodium (Protonix -) 40 mg PO DAILY [facility] Last Admin: 04/27/19 09:03 Dose: 40 mg Polyethylene Glycol (Miralax (For Daily Use) -) 17 gm PO DAILY [facility] Last Admin: 04/27/19 09:03 Dose: Not Given Sertraline HCl (Zoloft -) 25 mg PO DAILY [facility] Last Admin: 04/27/19 09:04 Dose: Not Given - Objective Vital Signs: Vital Signs Temperature 98.2 F 04/27/19 05:00 Pulse Rate 72 04/27/19 08:02 Respiratory Rate 22 H 04/27/19 07:58 Blood Pressure 143/56 L 04/27/19 08:02 O2 Sat by Pulse Oximetry (%) 99 04/27/19 07:37 Constitutional: Yes: Other Cardiovascular: Yes: Regular Rate and Rhythm Respiratory: Yes: WNL Gastrointestinal: Yes: Tenderness (RLQ TENDERNESS) Genitourinary: Yes: WNL Musculoskeletal: Yes: Muscle Weakness Edema: No Integumentary: Yes: WNL Wound/Incision: Yes: Clean/Dry Neurological: Yes: WNL ...Motor Strength: WNL Psychiatric: Yes: WNL Labs: CBC, BMP 04/27/19 05:10 04/27/19 05:10 INR, PTT INR 1.13 (0.83-1.09) H 04/25/19 19:28 Problem List - Problems (1) Constipation Code(s): K59.00 - CONSTIPATION, UNSPECIFIED (2) Depression Code(s): F32.9 - MAJOR DEPRESSIVE DISORDER, SINGLE EPISODE, UNSPECIFIED (3) Gram negative sepsis Code(s): A41.50 - GRAM-NEGATIVE SEPSIS, UNSPECIFIED (4) HLD (hyperlipidemia) Code(s): E78.5 - HYPERLIPIDEMIA, UNSPECIFIED (5) HTN (hypertension) Code(s): I10 - ESSENTIAL (PRIMARY) HYPERTENSION (6) Hematuria Code(s): R31.9 - HEMATURIA, UNSPECIFIED (7) Pelvic fluid collection Code(s): R18.8 - OTHER ASCITES (8) Vesicovaginal fistula Code(s): N82.0 - VESICOVAGINAL FISTULA Assessment/Plan SEPSIS ON IV ABX BP SUPPORT, MONITOR IN ICU SURGERY/UROLOGY CONSULT APPRECIATED PATIENT HAS A UROLOGIST DR BAINS IN [facility] AND HAS NOT BEEN COMPLIANT FOLLOWING UP AT THEIR OFFICE. I PERSONALLY CALLED AND SPOKE TO THE UROLOGIST 2 WEEKS AGO WITH THE PATIENT IN MY OFFICE. I SCHEDULED HER AN APPT AND I ALSO MADE HER AN APPOINTMENT WITH [facility]IN MEDICINE. PATIENT IS HAVING PERSONAL ISSUES AT HOME WITH HER SON AND IS INADHERENT TO HER OWN MEDICAL CARE. PSYCHIATRY EVAL WAS ALSO GIVEN. I AGREE WITH TREATMENT AT THIS POINT AND IV ABX PER ID. FOLLOW UP CULTURES WITH SENSITIVITY
[2019-04-27] MEDS: SODIUM CHLORIDE 1,000 ML IV SCH (11:49)
[2019-04-27] MEDS ORDERED: KETOROLAC TROMETHAMINE 15 MG/ML VIAL IVPUSH ONE (11:59)
--- NOTE | 2019-04-27 12:09 | PN ---
Physical Exam: SUBJECTIVE: Patient seen and examined on morning rounds. No acute overnight events. Central line in RIJ, patient on levo 2 this AM with overnight MAPs 70+. RLQ pain worsened since yesterday. No other complaints - no SOB, CP, nausea, vomiting. Blood culture growing GNR, not yet speciated. OBJECTIVE: Vital Signs Period Temp Pulse Resp BP Sys/Alvarez Pulse Ox Last 24 Hr 98.2 F-100.5 F 70-106 18-28 86-143/51-90 96-99 GENERAL: Awake, A&Ox3, no acute distress. HEAD: Normal with no signs of trauma, EOMI, no scleral icterus, dry mucous membranes, poor oral dentition. LUNGS: Decreased breath sounds bilaterally, no wheezing, crackles, no accessory muscle use. HEART: Tachycardic, nl s1s2. ABDOMEN: Tender to palpation RLQ with some guarding, soft, non-distended. EXTREMITIES: 2+ pulses, warm, well-perfused. No calf tenderness. No peripheral edema. NEUROLOGICAL: Normal speech, gait not observed PSYCHIATRIC: Cooperative. Good eye contact. Appropriate mood and affect. SKIN: Warm, dry, no rashes noted Laboratory Results - last 24 hr 04/26/19 04/26/19 04/27/19 13:20 17:10 05:10 WBC 10.3 H RBC 2.64 L Hgb 8.2 L Hct 23.6 L MCV 89.2 MCH 31.0 MCHC 34.7 RDW 12.2 Plt Count 121 L MPV 8.9 Absolute Neuts (auto) 8.9 H Neutrophils % 86.0 H Neutrophils % (Manual) 87.9 H Band Neutrophils % 2.0 Lymphocytes % 4.3 L Lymphocytes % (Manual) 2.0 L Monocytes % 9.3 Monocytes % (Manual) 3 L Eosinophils % 0.2 D Eosinophils % (Manual) 1.0 Basophils % 0.2 Basophils % (Manual) 0.0 Myelocytes % (Man) 1 Promyelocytes % (Man) 0 Blast Cells % (Manual) 0 Nucleated RBC % 0 Metamyelocytes 0 Platelet Estimate Decreased Sodium 140 Potassium 3.4 L Chloride 113 H Carbon Dioxide 15 L Anion Gap 11 BUN 36.6 H Creatinine 1.6 H Est GFR (CKD-EPI)AfAm 38.79 Est GFR (CKD-EPI)NonAf 33.47 POC Glucometer 208 Random Glucose 273 H Calcium 7.4 L Total Bilirubin 0.3 AST 32 ALT 24 Alkaline Phosphatase 66 Total Protein 5.3 L Albumin 2.3 L Ur Random Creatinine Ur Random Sodium Ur Random Potassium Ur Random Chloride 04/27/19 04/27/19 04/27/19 05:10 05:24 09:00 WBC RBC Hgb Hct MCV MCH MCHC RDW Plt Count MPV Absolute Neuts (auto) Neutrophils % Neutrophils % (Manual) Band Neutrophils % Lymphocytes % Lymphocytes % (Manual) Monocytes % Monocytes % (Manual) Eosinophils % Eosinophils % (Manual) Basophils % Basophils % (Manual) Myelocytes % (Man) Promyelocytes % (Man) Blast Cells % (Manual) Nucleated RBC % Metamyelocytes Platelet Estimate Sodium 143 Potassium 3.6 Chloride 119 H Carbon Dioxide 13 L Anion Gap 10 BUN 24.7 H Creatinine 1.2 Est GFR (CKD-EPI)AfAm 54.92 Est GFR (CKD-EPI)NonAf 47.39 POC Glucometer 178 Random Glucose 190 H Calcium 7.7 L Total Bilirubin 0.5 AST 54 H ALT 43 Alkaline Phosphatase 80 Total Protein 5.0 L Albumin 2.0 L Ur Random Creatinine 48.0 Ur Random Sodium Ur Random Potassium Ur Random Chloride 04/27/19 09:00 WBC RBC Hgb Hct MCV MCH MCHC RDW Plt Count MPV Absolute Neuts (auto) Neutrophils % Neutrophils % (Manual) Band Neutrophils % Lymphocytes % Lymphocytes % (Manual) Monocytes % Monocytes % (Manual) Eosinophils % Eosinophils % (Manual) Basophils % Basophils % (Manual) Myelocytes % (Man) Promyelocytes % (Man) Blast Cells % (Manual) Nucleated RBC % Metamyelocytes Platelet Estimate Sodium Potassium Chloride Carbon Dioxide Anion Gap BUN Creatinine Est GFR (CKD-EPI)AfAm Est GFR (CKD-EPI)NonAf POC Glucometer Random Glucose Calcium Total Bilirubin AST ALT Alkaline Phosphatase Total Protein Albumin Ur Random Creatinine Ur Random Sodium 120 Ur Random Potassium 27.0 Ur Random Chloride 148 Active Medications Generic Name Dose Route Start Last Admin Trade Name Freq PRN Reason Stop Dose Admin Acetaminophen 650 mg 04/26/19 00:14 04/26/19 10:31 Tylenol - PO 650 mg Q6H PRN Administration FEVER Acetaminophen 1,000 mg 04/26/19 22:40 04/27/19 08:57 Ofirmev Injection - IVPB 1,000 mg Q6H PRN Administration PAIN Atorvastatin Calcium 10 mg 04/26/19 22:00 04/26/19 21:04 Lipitor - PO 10 mg HS AYAD Administration Chlorhexidine Gluconate 1 applic 04/26/19 22:00 04/26/19 21:04 Hibiclens For Decolonization - TP 1 applic HS AYAD Administration Heparin Sodium (Porcine) 5,000 unit 04/26/19 10:00 04/27/19 09:02 Heparin - SQ 5,000 unit BID AYAD Administration Sodium Chloride 1,000 mls @ 150 mls/hr 04/26/19 11:20 04/27/19 11:49 Normal Saline - IV 150 mls/hr ASDIR AYAD Administration Norepinephrine Bitartrate 8, 500 mls @ 18.75 mls/hr 04/26/19 20:45 04/27/19 08:02 000 mcg/ Dextrose IV 2 mcg/min TITR AYAD 7.5 mls/hr Titration Protocol 5 MCG/MIN Meropenem 1 gm/ Dextrose 100 mls @ 200 mls/hr 04/26/19 22:15 04/27/19 09:28 IVPB 200 mls/hr Q12H AYAD Administration As Directed Insulin Aspart 1 vial 04/26/19 07:00 04/27/19 07:39 Novolog Vial Sliding Scale - SQ 2 units BIDAC AYAD Administration Protocol Mupirocin 1 applic 04/26/19 22:00 04/27/19 09:03 Bactroban Ointment (For Decolonization) - NS 05/01/19 21:59 1 applic BID AYAD Administration Pantoprazole Sodium 40 mg 04/26/19 13:15 04/27/19 09:03 Protonix - PO 40 mg DAILY AYAD Administration Polyethylene Glycol 17 gm 04/26/19 10:00 04/27/19 09:03 Miralax (For Daily Use) - PO Not Given DAILY AYAD Sertraline HCl 25 mg 04/26/19 10:00 04/27/19 09:04 Zoloft - PO Not Given DAILY AYAD ASSESSMENT/PLAN: 63 y/o/f with PMHx of HTN, HLD, NIDDM, vesiculovaginal fistula, recurrent multidrug resistant UTIs presented to ED for fever, abd pain, and dysuria. Patient was admitted to floors for sepsis secondary to UTI but has been consistently hypotensive despite adequate fluid resuscitation. Accepted to ICU for hypotension likely requiring pressor support. Central line places 04/26, patient maintaining MAPs on low-dose Levo. #Neuro - AAOx3 - Continue Sertraline for depression - Patient on ATC IV Tylenol for pain, Oxycodone 5mg q6h PRN for severe pain - Patient takes Oxycodone at home without adverse effect - 10mg TID, shows bottle - States that she agrees to not use any of her home medication while here in the unit #Cardio - Maintain MAPs >65 - Wean Levo as tolerated - RIJ placed 04/26 - Trop negative #Pulm - CXR with no acute process seen - Maintain SpO2 >92% #GI - CTAP - fecal retention with no evidence of acute pathology within the abdomen or pelvis - F/u RLQ US - Miralax daily - H&H 8.8 > 8.2/23.6 #Renal - LONG, resolved, Cr 1.2 - Avoid nephro toxic drugs #ID - Sepsis likely 06/27 UTI - Lactic acid normalized - Zosyn as per ID - WBC 12.9 -> 9.3 -> 10.5, afebrile overnight, monitor - Blood Cx with GNR bacteremia all bottles, speciation pending # - Hx of vesicovaginal fistula - Will need outpatient urology follow up #Endo - BGM - ISS #Prophylaxis - Heparin - Protonix #FEN - Monitor and replete lytes as needed - NS @150mls/hr - Na controlled diet #Dispo - ICU monitoring Visit type - Emergency Visit Emergency Visit: Yes ED Registration Date: 04/25/19 Care time: The patient presented to the Emergency Department on the above date and was hospitalized for further evaluation of their emergent condition. - New Patient This patient is new to me today: Yes Date on this admission: 04/27/19 - Critical Care Critical Care patient: Yes Total Critical Care Time (in minutes): 36 Critical Care Statement: The care of this patient involved high complexity decision making to prevent further life threatening deterioration of the patient 's condition and/or to evaluate & treat vital organ system(s) failure or risk of failure. ATTENDING PHYSICIAN STATEMENT I saw and evaluated the patient. I reviewed the resident's note and discussed the case with the resident. I agree with the resident's findings and plan as documented. SUBJECTIVE: OBJECTIVE: ASSESSMENT AND PLAN:
[2019-04-27 13:01] VITALS: BMI 23.4
--- NOTE | 2019-04-27 13:24 | PN ---
Teaching Attending Note Name of Resident: Scotty Jacobs ATTENDING PHYSICIAN STATEMENT I saw and evaluated the patient. I reviewed the resident's note and discussed the case with the resident. I agree with the resident's findings and plan as documented. SUBJECTIVE: Patient seen and examined in the ICU. Awake and alert. Increasing right groin pain. Denies CP or SOB. Remains on NE for hemodynamic support. Intake & Output 04/24/19 04/25/19 04/26/19 04/27/19 23:59 23:59 23:59 23:59 Intake Total 2735 2190 Output Total 400 Balance 2735 1790 Weight 120 lb 124 lb 12.8 oz 124 lb Last Vital Signs Temp Pulse Resp BP Pulse Ox 98.2 F 72 22 H 143/56 L 99 04/27/19 05:00 04/27/19 08:02 04/27/19 07:58 04/27/19 08:02 04/27/19 07:37 Active Medications Acetaminophen (Tylenol -) 650 mg PO Q6H PRN PRN Reason: FEVER Last Admin: 04/26/19 10:31 Dose: 650 mg Acetaminophen (Ofirmev Injection -) 1,000 mg IVPB Q6H PRN PRN Reason: PAIN Last Admin: 04/27/19 08:57 Dose: 1,000 mg Atorvastatin Calcium (Lipitor -) 10 mg PO HS AYAD Last Admin: 04/26/19 21:04 Dose: 10 mg Chlorhexidine Gluconate (Hibiclens For Decolonization -) 1 applic TP HS [facility] Last Admin: 04/26/19 21:04 Dose: 1 applic Heparin Sodium (Porcine) (Heparin -) 5,000 unit SQ BID [facility] Last Admin: 04/27/19 09:02 Dose: 5,000 unit Sodium Chloride (Normal Saline -) 1,000 mls @ 150 mls/hr IV ASDIR [facility] Last Admin: 04/27/19 11:49 Dose: 150 mls/hr Norepinephrine Bitartrate 8, (000 mcg/ Dextrose) 500 mls @ 18.75 mls/hr IV TITR [facility]; Protocol Last Titration: 04/27/19 08:02 Dose: 2 mcg/min, 7.5 mls/hr Meropenem 1 gm/ Dextrose 100 mls @ 200 mls/hr IVPB Q12H [facility] Last Admin: 12/03/19 09:28 Dose: 200 mls/hr Insulin Aspart (Novolog Vial Sliding Scale -) [facility]; Protocol Last Admin: 04/27/19 07:39 Dose: 2 units Mupirocin (Bactroban Ointment (For Decolonization) -) 1 applic NS BID [facility] Stop: 05/01/19 21:59 Last Admin: 04/27/19 09:03 Dose: 1 applic Pantoprazole Sodium (Protonix -) 40 mg PO DAILY [facility] Last Admin: 04/27/19 09:03 Dose: 40 mg Polyethylene Glycol (Miralax (For Daily Use) -) 17 gm PO DAILY [facility] Last Admin: 04/27/19 09:03 Dose: Not Given Sertraline HCl (Zoloft -) 25 mg PO DAILY [facility] Last Admin: 04/27/19 09:04 Dose: Not Given GENERAL: Awake, alert, and fully oriented, in no acute distress. HEAD: Normal with no signs of trauma. EYES: EOMI, no scleral icterus EARS, NOSE, THROAT: dry mucous membranes, poor oral dentition NECK: supple, trachea midline LUNGS: decreased breath sounds bilaterally, no wheezing, crackles. no accessory muscle use HEART: tachycardic ABDOMEN: Tenderness to palpation over RLQ, soft, nondistended, normoactive bowel sounds, no guarding MUSCULOSKELETAL: No CVA tenderness EXTREMITIES: 2+ pulses, warm, well-perfused. No calf tenderness. No peripheral edema. NEUROLOGICAL: Non-focal SKIN: Warm, dry Laboratory Results - last 24 hr 04/26/19 04/26/19 04/27/19 13:20 17:10 05:10 WBC 10.3 H RBC 2.64 L Hgb 8.2 L Hct 23.6 L MCV 89.2 MCH 31.0 MCHC 34.7 RDW 12.2 Plt Count 121 L MPV 8.9 Absolute Neuts (auto) 8.9 H Neutrophils % 86.0 H Neutrophils % (Manual) 87.9 H Band Neutrophils % 2.0 Lymphocytes % 4.3 L Lymphocytes % (Manual) 2.0 L Monocytes % 9.3 Monocytes % (Manual) 3 L Eosinophils % 0.2 D Eosinophils % (Manual) 1.0 Basophils % 0.2 Basophils % (Manual) 0.0 Myelocytes % (Man) 1 Promyelocytes % (Man) 0 Blast Cells % (Manual) 0 Nucleated RBC % 0 Metamyelocytes 0 Platelet Estimate Decreased Sodium 140 Potassium 3.4 L Chloride 113 H Carbon Dioxide 15 L Anion Gap 11 BUN 36.6 H Creatinine 1.6 H Est GFR (CKD-EPI)AfAm 38.79 Est GFR (CKD-EPI)NonAf 33.47 POC Glucometer 208 Random Glucose 273 H Calcium 7.4 L Total Bilirubin 0.3 AST 32 ALT 24 Alkaline Phosphatase 66 Total Protein 5.3 L Albumin 2.3 L Ur Random Creatinine Ur Random Sodium Ur Random Potassium Ur Random Chloride 04/27/19 04/27/19 04/27/19 05:10 05:24 09:00 WBC RBC Hgb Hct MCV MCH MCHC RDW Plt Count MPV Absolute Neuts (auto) Neutrophils % Neutrophils % (Manual) Band Neutrophils % Lymphocytes % Lymphocytes % (Manual) Monocytes % Monocytes % (Manual) Eosinophils % Eosinophils % (Manual) Basophils % Basophils % (Manual) Myelocytes % (Man) Promyelocytes % (Man) Blast Cells % (Manual) Nucleated RBC % Metamyelocytes Platelet Estimate Sodium 143 Potassium 3.6 Chloride 119 H Carbon Dioxide 13 L Anion Gap 10 BUN 24.7 H Creatinine 1.2 Est GFR (CKD-EPI)AfAm 54.92 Est GFR (CKD-EPI)NonAf 47.39 POC Glucometer 178 Random Glucose 190 H Calcium 7.7 L Total Bilirubin 0.5 AST 54 H ALT 43 Alkaline Phosphatase 80 Total Protein 5.0 L Albumin 2.0 L Ur Random Creatinine 48.0 Ur Random Sodium Ur Random Potassium Ur Random Chloride 04/27/19 09:00 WBC RBC Hgb Hct MCV MCH MCHC RDW Plt Count MPV Absolute Neuts (auto) Neutrophils % Neutrophils % (Manual) Band Neutrophils % Lymphocytes % Lymphocytes % (Manual) Monocytes % Monocytes % (Manual) Eosinophils % Eosinophils % (Manual) Basophils % Basophils % (Manual) Myelocytes % (Man) Promyelocytes % (Man) Blast Cells % (Manual) Nucleated RBC % Metamyelocytes Platelet Estimate Sodium Potassium Chloride Carbon Dioxide Anion Gap BUN Creatinine Est GFR (CKD-EPI)AfAm Est GFR (CKD-EPI)NonAf POC Glucometer Random Glucose Calcium Total Bilirubin AST ALT Alkaline Phosphatase Total Protein Albumin Ur Random Creatinine Ur Random Sodium 120 Ur Random Potassium 27.0 Ur Random Chloride 148 ASSESSMENT/PLAN: Sepsis due to a source HTN HLD NIDDM Vesiculovaginal fistula Recurrent multidrug resistant UTIs LONG Anemia NE to maintain MAP > 65 IVF resuscitation Supplemental O2 as needed Strict I & O ABX per ID Follow Renal function Normal transfusion thresholds Glycemic control ICU Monitoring for pressors Dr Guerrero Critical care time spent in reviewing chart, evaluating patient and formulating plan - 36 minutes.
--- NOTE | 2019-04-27 14:34 | PN ---
Progress Note (short form) - Note Progress Note: transferred to ICU last night now on pressors alert chronic abdominal pain no fevers no chills Vital Signs Period Temp Pulse Resp BP Sys/Alvarez Pulse Ox Last 24 Hr 98.2 F-100.3 F 70-106 20-28 86-143/51-64 96-99 cor-rrr lungs clear abd soft,mild pelvic discomfort to palaption ext no edema CBC, BMP 04/27/19 05:10 04/27/19 05:10 Microbiology 04/25/19 20:22 Urine - Urine Clean Catch Urine Culture - Preliminary Lactose Fermenting Neg Bacilli Pending Organism 04/25/19 19:32 Blood - Peripheral Venous Blood Culture - Preliminary Lactose Fermenting Neg Bacilli 04/25/19 19:28 Blood - Peripheral Venous Blood Culture - Preliminary Lactose Fermenting Neg Bacilli a/p gram negative sepsis secondary to UTI/pyelonephritis history of vesicovgianal fistula continue meropenem f/u cultures in am and taper antiibotics day #2 Problem List - Problems (1) Gram negative sepsis Code(s): A41.50 - GRAM-NEGATIVE SEPSIS, UNSPECIFIED (2) Pyelonephritis Code(s): N12 - TUBULO-INTERSTITIAL NEPHRITIS, NOT SPCF ACUTE OR CHRONIC (3) LONG (acute kidney injury) Code(s): N17.9 - ACUTE KIDNEY FAILURE, UNSPECIFIED (4) Vesicovaginal fistula Code(s): N82.0 - VESICOVAGINAL FISTULA
[2019-04-27] MEDS ORDERED: oxyCODONE HCL 5 MG TABLET PO ONE (15:44)
--- NOTE | 2019-04-27 16:38 | PN ---
Progress Note, Physician History of Present Illness: Pt seen and examined at bedside. She is awake and alert. She feels better today than yesterday. - Current Medication List Current Medications: Active Medications Acetaminophen (Tylenol -) 650 mg PO Q6H PRN PRN Reason: FEVER Last Admin: 04/26/19 10:31 Dose: 650 mg Acetaminophen (Ofirmev Injection -) 1,000 mg IVPB Q6H PRN PRN Reason: PAIN Last Admin: 04/27/19 15:45 Dose: 1,000 mg Atorvastatin Calcium (Lipitor -) 10 mg PO HS [facility] Last Admin: 04/26/19 21:04 Dose: 10 mg Chlorhexidine Gluconate (Hibiclens For Decolonization -) 1 applic TP HS [facility] Last Admin: 04/26/19 21:04 Dose: 1 applic Heparin Sodium (Porcine) (Heparin -) 5,000 unit SQ BID [facility] Last Admin: 04/27/19 09:02 Dose: 5,000 unit Sodium Chloride (Normal Saline -) 1,000 mls @ 150 mls/hr IV ASDIR [facility] Last Admin: 04/27/19 11:49 Dose: 150 mls/hr Norepinephrine Bitartrate 8, (000 mcg/ Dextrose) 500 mls @ 18.75 mls/hr IV TITR [facility]; Protocol Last Titration: 04/27/19 08:02 Dose: 2 mcg/min, 7.5 mls/hr Meropenem 1 gm/ Dextrose 100 mls @ 200 mls/hr IVPB Q12H [facility] Last Admin: 04/27/19 09:28 Dose: 200 mls/hr Insulin Aspart (Novolog Vial Sliding Scale -) 1 vial SQ BID[facility]; Protocol Last Admin: 04/27/19 07:39 Dose: 2 units Mupirocin (Bactroban Ointment (For Decolonization) -) 1 applic NS BID [facility] Stop: 05/01/19 21:59 Last Admin: 04/27/19 09:03 Dose: 1 applic Pantoprazole Sodium (Protonix -) 40 mg PO DAILY [facility] Last Admin: 04/27/19 09:03 Dose: 40 mg Polyethylene Glycol (Miralax (For Daily Use) -) 17 gm PO DAILY [facility] Last Admin: 04/27/19 09:03 Dose: Not Given Sertraline HCl (Zoloft -) 25 mg PO DAILY [facility] Last Admin: 04/27/19 09:04 Dose: Not Given - Objective Vital Signs: Vital Signs Temperature 98.2 F 04/27/19 10:00 Pulse Rate 85 04/27/19 15:00 Respiratory Rate 18 04/27/19 15:00 Blood Pressure 112/94 04/27/19 15:00 O2 Sat by Pulse Oximetry (%) 99 04/27/19 07:37 Constitutional: Yes: Calm Eyes: Yes: Conjunctiva Clear HENT: Yes: Atraumatic Neck: Yes: Supple Cardiovascular: Yes: S1, S2 Respiratory: Yes: CTA Bilaterally Gastrointestinal: Yes: Soft Musculoskeletal: Yes: WNL Edema: No Labs: CBC, BMP 04/27/19 05:10 04/27/19 05:10 INR, PTT INR 1.13 (0.83-1.09) H 04/25/19 19:28 Problem List - Problems (1) LONG (acute kidney injury) Code(s): N17.9 - ACUTE KIDNEY FAILURE, UNSPECIFIED (2) Sepsis Code(s): A41.9 - SEPSIS, UNSPECIFIED ORGANISM Assessment/Plan Current Medications Generic Name Dose Route Start Last Admin Trade Name Freq PRN Reason Stop Dose Admin Acetaminophen 650 mg 04/26/19 00:14 04/26/19 10:31 Tylenol - PO 650 mg Q6H PRN Administration FEVER Acetaminophen 1,000 mg 04/26/19 22:40 04/27/19 15:45 Ofirmev Injection - IVPB 1,000 mg Q6H PRN Administration PAIN Atorvastatin Calcium 10 mg 04/26/19 22:00 04/26/19 21:04 Lipitor - PO 10 mg HS AYAD Administration Chlorhexidine Gluconate 1 applic 04/26/19 22:00 04/26/19 21:04 Hibiclens For Decolonization - TP 1 applic HS [facility] Administration Heparin Sodium (Porcine) 5,000 unit 04/26/19 10:00 04/27/19 09:02 Heparin - SQ 5,000 unit BID [facility] Administration Sodium Chloride 1,000 mls @ 150 mls/hr 04/26/19 11:20 04/27/19 11:49 Normal Saline - IV 150 mls/hr ASDIR AYAD Administration Norepinephrine Bitartrate 8, 500 mls @ 18.75 mls/hr 04/26/19 20:45 04/27/19 08:02 000 mcg/ Dextrose IV 2 mcg/min TITR [facility] 7.5 mls/hr Titration Protocol 5 MCG/MIN Meropenem 1 gm/ Dextrose 100 mls @ 200 mls/hr 04/26/19 22:15 04/27/19 09:28 IVPB 200 mls/hr Q12H AYAD Administration As Directed Insulin Aspart 1 vial 04/26/19 07:00 04/27/19 07:39 Novolog Vial Sliding Scale - SQ 2 units BIDAC [facility] Administration Protocol Mupirocin 1 applic 04/26/19 22:00 04/27/19 09:03 Bactroban Ointment (For Decolonization) - NS 05/01/19 21:59 1 applic BID [facility] Administration Pantoprazole Sodium 40 mg 04/26/19 13:15 04/27/19 09:03 Protonix - PO 40 mg DAILY [facility] Administration Polyethylene Glycol 17 gm 04/26/19 10:00 04/27/19 09:03 Miralax (For Daily Use) - PO Not Given DAILY [facility] Sertraline HCl 25 mg 04/26/19 10:00 04/27/19 09:04 Zoloft - PO Not Given DAILY [facility] Impression 1. LONG 2. sepsis 3. UTI 4. hypotension 5. anemia 6. vesiculovaginal fistula 7. metabolic acidosis Plan - change fluids to 1/2 ns with an amp of bicarb - monitor lytes - renal function is improving - repeat labs in am - abx per medical team - LONG likely from sepsis and pre-renal disease
[2019-04-27] MEDS ORDERED: POTASSIUM CHLORIDE TABS 20 MEQ TABLET.ER (FP) PO ONE (16:39)
[2019-04-27] MEDS ORDERED: SODIUM BICARBONATE 8.4% 50 MEQ/50 ML DISP.SYRIN IVPUSH ONE (16:41)
[2019-04-27] MEDS ORDERED: SODIUM CHLORIDE 0.45% 1,000 ML with SODIUM BICARBONATE 8.4% - 50 MEQ IV SCH (16:45)
[2019-04-27] MEDS ORDERED: oxyCODONE HCL 5 MG TABLET PO PRN (16:54)
[2019-04-27] MEDS ORDERED: SODIUM BICARBONATE 8.4% 50 MEQ/50 ML VIAL ONE ×2 (18:11→18:28)
[2019-04-27] MEDS ORDERED: SODIUM BICARBONATE 8.4% 50 MEQ/50 ML VIAL IVPUSH ONE (18:15)
[2019-04-27] MEDS: CHLORHEXIDINE GLUCONATE 4% CLEANSER FOR DECOLONIZATION TP SCH (21:40)
[2019-04-27] MEDS: ATORVASTATIN CA 10 MG TABLET (FP) PO SCH (21:41)
[2019-04-28] MEDS ORDERED: oxyCODONE HCL 5 MG TABLET PO ONE (00:56)
[2019-04-28] MEDS: ACETAMINOPHEN 1000 MG/100 ML VIAL (NON FORMULARY) IVPB PRN (01:24)
[2019-04-28] MEDS: oxyCODONE HCL 5 MG TABLET PO SCH ×4 (05:15→20:48)
[2019-04-28 06:39] LABS: BASO % 0.2 % (0-2.0); EOS % 0.1 % (0-4.5); HEMATOCRIT 22.8 % (32.4-45.2); HEMOGLOBIN 7.9 GM/dL (10.7-15.3); MCH 30.3 pg (25.7-33.7); MCHC 34.8 g/dl (32.0-36.0); MEAN CELL VOLUME 87.2 fl (80-96); MEAN PLT VOLUME 8.8 fl (7.5-11.1); MONO % 6.3 % (3.8-10.2); NEUT % 89.4 % (42.8-82.8); PLATELET COUNT 136 K/MM3 (134-434); RBC 2.62 M/mm3 (3.60-5.2); RDW 12.7 % (11.6-15.6); WHITE BLOOD COUNT 11.3 K/mm3 (4.0-10.0)
[2019-04-28 07:13] LABS: ALBUMIN 1.9 g/dl (3.4-5.0); BILIRUBIN,TOTAL 0.2 mg/dL (0.2-1); BLOOD UREA NITROGEN 24.1 mg/dL (7-18); CREATININE 1.1 mg/dL (0.55-1.3); MAGNESIUM 1.4 mg/dL (1.8-2.4); PHOSPHOROUS 2.2 mg/dL (2.5-4.9); POTASSIUM 3.9 mmol/L (3.5-5.1); TOT PROT 4.9 g/dl (6.4-8.2)
[2019-04-28] MEDS: INSULIN SLIDING SCALE (NOVOLOG) 1 VIAL SQ SCH ×2 (07:59→16:54)
--- NOTE | 2019-04-28 08:30 | PN ---
Physical Exam: SUBJECTIVE: Patient seen and examined by the bedside. Had a fever of 103 overnight, currently afebrile, complaining of RLQ pain OBJECTIVE: Vital Signs Period Temp Pulse Resp BP Sys/Alvarez Pulse Ox Last 24 Hr 97.5 F-103.1 F 66-98 18-33 94-141/56-121 99 GENERAL: AOx3 EYES: PERRL, extraocular movements intact, sclera anicteric, conjunctiva clear. No ptosis. ENT: Ears normal, nares patent, oropharynx clear without exudates, moist mucous membranes. NECK: Trachea midline, full range of motion, supple. LUNGS: Breath sounds equal, clear to auscultation bilaterally, no wheezes, no crackles, no accessory muscle use. HEART: Regular rate and rhythm, S1, S2 without murmur, rub or gallop. ABDOMEN: Soft, RLQ tenderness EXTREMITIES: 2+ pulses, warm, well-perfused, no edema. NEUROLOGICAL: Motor 5/5, sensations intact PSYCH: Normal mood, normal affect. SKIN: Warm, dry, normal turgor, no rashes or lesions noted Laboratory Results - last 24 hr 04/27/19 04/27/19 04/27/19 05:10 09:00 09:00 WBC RBC Hgb Hct MCV MCH MCHC RDW Plt Count MPV Absolute Neuts (auto) Neutrophils % Neutrophils % (Manual) 87.9 H Band Neutrophils % 2.0 Lymphocytes % Lymphocytes % (Manual) 2.0 L Monocytes % Monocytes % (Manual) 3 L Eosinophils % Eosinophils % (Manual) 1.0 Basophils % Basophils % (Manual) 0.0 Myelocytes % (Man) 1 Promyelocytes % (Man) 0 Blast Cells % (Manual) 0 Nucleated RBC % Metamyelocytes 0 Platelet Estimate Decreased Sodium Potassium Chloride Carbon Dioxide Anion Gap BUN Creatinine Est GFR (CKD-EPI)AfAm Est GFR (CKD-EPI)NonAf POC Glucometer Random Glucose Lactic Acid Calcium Phosphorus Magnesium Total Bilirubin AST ALT Alkaline Phosphatase Total Protein Albumin Ur Random Creatinine 48.0 Ur Random Sodium 120 Ur Random Potassium 27.0 Ur Random Chloride 148 04/27/19 04/28/19 04/28/19 17:54 05:30 05:30 WBC 11.3 H RBC 2.62 L Hgb 7.9 L Hct 22.8 L MCV 87.2 MCH 30.3 MCHC 34.8 RDW 12.7 Plt Count 136 MPV 8.8 Absolute Neuts (auto) 10.1 H Neutrophils % 89.4 H Neutrophils % (Manual) Band Neutrophils % Lymphocytes % 4.0 L Lymphocytes % (Manual) Monocytes % 6.3 Monocytes % (Manual) Eosinophils % 0.1 Eosinophils % (Manual) Basophils % 0.2 Basophils % (Manual) Myelocytes % (Man) Promyelocytes % (Man) Blast Cells % (Manual) Nucleated RBC % 0 Metamyelocytes Platelet Estimate Sodium 141 Potassium 3.9 Chloride 118 H Carbon Dioxide 17 L Anion Gap 7 L BUN 24.1 H Creatinine 1.1 Est GFR (CKD-EPI)AfAm 61.01 Est GFR (CKD-EPI)NonAf 52.64 POC Glucometer 240 Random Glucose 208 H Lactic Acid Calcium 8.0 L Phosphorus 2.2 L Magnesium 1.4 L Total Bilirubin 0.2 AST 36 ALT 38 Alkaline Phosphatase 88 Total Protein 4.9 L Albumin 1.9 L Ur Random Creatinine Ur Random Sodium Ur Random Potassium Ur Random Chloride 04/28/19 05:30 WBC RBC Hgb Hct MCV MCH MCHC RDW Plt Count MPV Absolute Neuts (auto) Neutrophils % Neutrophils % (Manual) Band Neutrophils % Lymphocytes % Lymphocytes % (Manual) Monocytes % Monocytes % (Manual) Eosinophils % Eosinophils % (Manual) Basophils % Basophils % (Manual) Myelocytes % (Man) Promyelocytes % (Man) Blast Cells % (Manual) Nucleated RBC % Metamyelocytes Platelet Estimate Sodium Potassium Chloride Carbon Dioxide Anion Gap BUN Creatinine Est GFR (CKD-EPI)AfAm Est GFR (CKD-EPI)NonAf POC Glucometer Random Glucose Lactic Acid 0.9 Calcium Phosphorus Magnesium Total Bilirubin AST ALT Alkaline Phosphatase Total Protein Albumin Ur Random Creatinine Ur Random Sodium Ur Random Potassium Ur Random Chloride Active Medications Generic Name Dose Route Start Last Admin Trade Name Freq PRN Reason Stop Dose Admin Acetaminophen 650 mg 04/26/19 00:14 04/26/19 10:31 Tylenol - PO 650 mg Q6H PRN Administration FEVER Atorvastatin Calcium 10 mg 04/26/19 22:00 04/27/19 21:41 Lipitor - PO 10 mg HS AY[facility] Administration Chlorhexidine Gluconate 1 applic 04/26/19 22:00 04/27/19 21:40 Hibiclens For Decolonization - TP 1 applic HS [facility] Administration Heparin Sodium (Porcine) 5,000 unit 04/26/19 10:00 04/27/19 21:41 Heparin - SQ 5,000 unit BID [facility] Administration Norepinephrine Bitartrate 8, 500 mls @ 18.75 mls/hr 04/26/19 20:45 04/28/19 01:15 000 mcg/ Dextrose IV 0.5 mcg/min TITR [facility] 1.87 mls/hr Titration Protocol 5 MCG/MIN Meropenem 1 gm/ Dextrose 100 mls @ 200 mls/hr 04/26/19 22:15 04/27/19 21:41 IVPB 200 mls/hr Q12H [facility] Administration As Directed Sodium Bicarbonate 50 meq/ 1,050 mls @ 100 mls/hr 04/27/19 16:45 04/27/19 18: 13 Sodium Chloride IV 100 mls/hr ASDIR AY[facility] Administration Insulin Aspart 1 vial 04/26/19 07:00 04/28/19 07:59 Novolog Vial Sliding Scale - SQ 4 units BIDAC [facility] Administration Protocol Mupirocin 1 applic 04/26/19 22:00 04/27/19 21:41 Bactroban Ointment (For Decolonization) - NS 05/01/19 21:59 1 applic BID [facility] Administration Oxycodone HCl 5 mg 04/28/19 02:00 04/28/19 05:15 Roxicodone - PO 5 mg Q6H A[facility] Administration Pantoprazole Sodium 40 mg 04/26/19 13:15 04/27/19 09:03 Protonix - PO 40 mg DAILY [facility] Administration Polyethylene Glycol 17 gm 04/26/19 10:00 04/27/19 09:03 Miralax (For Daily Use) - PO Not Given DAILY [facility] Sertraline HCl 25 mg 04/26/19 10:00 04/27/19 09:04 Zoloft - PO Not Given DAILY [facility] ASSESSMENT/PLAN: 63 y/o/f with PMHx of HTN, HLD, NIDDM, vesiculovaginal fistula, recurrent multidrug resistant UTIs presented to the ER 04/25 for fever, abd pain, and dysuria. Patient was admitted to floors for urosepsis but has been consistently hypotensive despite adequate fluid resuscitation. Accepted to ICU for hypotension likely requiring pressor support. Central line places 04/26, patient maintaining MAPs on low-dose Levo. #Neuro - AAOx3 - Continue Sertraline for depression - Patient on ATC IV Tylenol for pain, Oxycodone 5mg q6h PRN for severe pain #Cardio - Norepi stopped this morningcurrently maintaining BP 100s/60s with MAP 70s, RIJ placed 04/26 - Trop negative #Pulm - CXR with no acute process seen #GI - CTAP - fecal retention with no evidence of acute pathology within the abdomen or pelvis - RLQ US: no evidence of hernia - H&H 8/22.8 > 8.2/23.6 #Renal - LONG likely pre-renal from sepsis, resolved, Cr 1.2 #ID - Fever overnight 103, blood cx pending - Cefazolin 04/28 , switched form Meropenem as per ID - WBC 12.9 -> 9.3-> 10.5-> 11.3 - Blood Cx from 04/25 : LF G- Bacilli, Ucx EColi # - Hx of vesicovaginal fistula, outpatient urology follow up #Endo - Hx of DM, BGM ISS #Prophylaxis - Heparin SQ 5000 - Protonix 40mg PO #FEN - 0.45 N/S with 1 amp Bicarb @ 100 - Mg 1.4, ordered 2gm IV - Na controlled diet #Dispo - ICU monitoring Visit type - Emergency Visit Emergency Visit: Yes ED Registration Date: 04/25/19 Care time: The patient presented to the Emergency Department on the above date and was hospitalized for further evaluation of their emergent condition. - New Patient This patient is new to me today: Yes Date on this admission: 04/29/19 - Critical Care Critical Care patient: Yes Total Critical Care Time (in minutes): 37 Critical Care Statement: The care of this patient involved high complexity decision making to prevent further life threatening deterioration of the patient 's condition and/or to evaluate & treat vital organ system(s) failure or risk of failure. ATTENDING PHYSICIAN STATEMENT I saw and evaluated the patient. I reviewed the resident's note and discussed the case with the resident. I agree with the resident's findings and plan as documented. SUBJECTIVE: OBJECTIVE: ASSESSMENT AND PLAN:
[2019-04-28] MEDS ORDERED: MAGNESIUM SULF 50% (8.12 MEQ/2 ML-1 GM VIAL) IVPB ONE (08:45)
[2019-04-28] MEDS ORDERED: DEXTROSE 5%-WATER 100 ML IVPB ONE (09:15)
[2019-04-28] MEDS ORDERED: MEROPENEM 1 GM VIAL (RESTRICTED TO ID) IVPB ONE (09:15)
[2019-04-28] MEDS: HEPARIN NA (PORCINE) 5,000 UNITS/ML 1ML VIAL SQ SCH ×2 (09:23→21:27)
[2019-04-28] MEDS: PANTOPRAZOLE 40 MG TABLET (FP) PO SCH (09:25)
[2019-04-28] MEDS: MEROPENEM 1 GM in DEXTROSE 5%-WATER 100 ML IVPB SCH (09:25)
[2019-04-28] MEDS: SERTRALINE HCL 25 MG TABLET (FP) PO SCH (09:25)
[2019-04-28] MEDS: POLYETHYLENE GLYCOL 3350 119 GM BTL PO SCH (09:25)
[2019-04-28] MEDS: MUPIROCIN 2% TOPICAL OINTMENT FOR DECOLONIZATION NS SCH ×2 (09:26→21:26)
--- NOTE | 2019-04-28 09:50 | PN ---
Progress Note (short form) - Note Progress Note: pressors off had chills last night with fever of 103 less pelvic and back pain alert no diarrhea Vital Signs Period Temp Pulse Resp BP Sys/Alvarez Pulse Ox Last 24 Hr 97.5 F-103.1 F 66-98 18-33 94-141/56-121 99-99 cor-rrr lungs clear abd soft,nt less pelvic discomfort no cvat ext no edema CBC, BMP 04/28/19 05:30 04/28/19 05:30 Microbiology 04/25/19 20:22 Urine - Urine Clean Catch Urine Culture - Preliminary Escherichia Coli Group D Strep Or Entero Coccus 04/25/19 19:28 Blood - Peripheral Venous Blood Culture - Final Escherichia Coli 04/25/19 19:32 Blood - Peripheral Venous Blood Culture - Preliminary Lactose Fermenting Neg Bacilli a/p gram negative sepsis secondary to UTI/pyelonephritis history of vesicovgianal fistula recurrent fever- repeat cultures sent await gynecology consult switch to cefazolin renal functin improved Problem List - Problems (1) Gram negative sepsis Code(s): A41.50 - GRAM-NEGATIVE SEPSIS, UNSPECIFIED (2) Pyelonephritis Code(s): N12 - TUBULO-INTERSTITIAL NEPHRITIS, NOT SPCF ACUTE OR CHRONIC (3) LONG (acute kidney injury) Code(s): N17.9 - ACUTE KIDNEY FAILURE, UNSPECIFIED (4) Vesicovaginal fistula Code(s): N82.0 - VESICOVAGINAL FISTULA
[2019-04-28] MEDS: CEFAZOLIN 2 GM/D5W 2 GM/50 ML ML IVPB SCH ×2 (10:41→17:04)
[2019-04-28] MEDS: ACETAMINOPHEN 325 MG TABLET (FP) PO PRN ×2 (10:45→20:49)
--- NOTE | 2019-04-28 11:43 | PN ---
Progress Note, Physician Chief Complaint: ASLEEP COMFORTABLE NO NEW EVENTS OVERNIGHT STILL ON BLOOD PRESSURE SUPPORT AND IVF - Current Medication List Current Medications: Active Medications Acetaminophen (Tylenol -) 650 mg PO Q6H PRN PRN Reason: FEVER Last Admin: 04/26/19 10:31 Dose: 650 mg Atorvastatin Calcium (Lipitor -) 10 mg PO HS [facility] Last Admin: 04/27/19 21:41 Dose: 10 mg Chlorhexidine Gluconate (Hibiclens For Decolonization -) 1 applic TP HS [facility] Last Admin: 04/27/19 21:40 Dose: 1 applic Heparin Sodium (Porcine) (Heparin -) 5,000 unit SQ BID [facility] Last Admin: 04/28/19 09:23 Dose: 5,000 unit Norepinephrine Bitartrate 8, (000 mcg/ Dextrose) 500 mls @ 18.75 mls/hr IV TITR [facility]; Protocol Last Titration: 04/28/19 08:15 Dose: 0 mcg/min, 0 mls/hr Sodium Bicarbonate 50 meq/ (Sodium Chloride) 1,050 mls @ 100 mls/hr IV ASDIR [facility] Last Admin: 04/27/19 18:13 Dose: 100 mls/hr Cefazolin Sodium/Dextrose (Ancef 2 Gm Premixed Ivpb -) 2 gm in 50 mls @ 100 mls /hr IVPB Q8H-IV [facility] Last Admin: 04/28/19 10:41 Dose: 100 mls/hr Insulin Aspart (Novolog Vial Sliding Scale -) 1 vial SQ BIDAC [facility]; Protocol Last Admin: 04/28/19 07:59 Dose: 4 units Mupirocin (Bactroban Ointment (For Decolonization) -) 1 applic NS BID [facility] Stop: 05/01/19 21:59 Last Admin: 04/28/19 09:26 Dose: 1 applic Oxycodone HCl (Roxicodone -) 5 mg PO Q6H [facility] Last Admin: 04/28/19 09:06 Dose: Not Given Pantoprazole Sodium (Protonix -) 40 mg PO DAILY [facility] Last Admin: 04/28/19 09:25 Dose: 40 mg Polyethylene Glycol (Miralax (For Daily Use) -) 17 gm PO DAILY [facility] Last Admin: 04/28/19 09:25 Dose: Not Given Sertraline HCl (Zoloft -) 25 mg PO DAILY [facility] Last Admin: 04/28/19 09:25 Dose: 25 mg - Objective Vital Signs: Vital Signs Temperature 98.6 F 04/28/19 10:13 Pulse Rate 68 04/28/19 10:13 Respiratory Rate 18 04/28/19 10:13 Blood Pressure 95/69 04/28/19 10:13 O2 Sat by Pulse Oximetry (%) 99 04/28/19 08:27 Constitutional: Yes: Moderate Distress Cardiovascular: Yes: Regular Rate and Rhythm Respiratory: Yes: Diminished, On Nasal O2 Gastrointestinal: Yes: Soft, Tenderness Genitourinary: Yes: Other Musculoskeletal: Yes: Muscle Weakness Edema: No Neurological: Yes: Other Labs: CBC, BMP 04/28/19 05:30 04/28/19 05:30 INR, PTT INR 1.13 (0.83-1.09) H 04/25/19 19:28 Problem List - Problems (1) Constipation Code(s): K59.00 - CONSTIPATION, UNSPECIFIED (2) Depression Code(s): F32.9 - MAJOR DEPRESSIVE DISORDER, SINGLE EPISODE, UNSPECIFIED (3) Gram negative sepsis Code(s): A41.50 - GRAM-NEGATIVE SEPSIS, UNSPECIFIED (4) HLD (hyperlipidemia) Code(s): E78.5 - HYPERLIPIDEMIA, UNSPECIFIED (5) HTN (hypertension) Code(s): I10 - ESSENTIAL (PRIMARY) HYPERTENSION (6) Hematuria Code(s): R31.9 - HEMATURIA, UNSPECIFIED (7) Pelvic fluid collection Code(s): R18.8 - OTHER ASCITES (8) Vesicovaginal fistula Code(s): N82.0 - VESICOVAGINAL FISTULA Assessment/Plan IV ABX CONTINUED CHANGED TO CEFAZOLIN PER ID IV FLUIDS BP SUPPORT ON PRESSERS SAND FILLER CONSULT WILL NEED SOME INTERVENTION TO REPAIR VESICULOFISTULAA MY PREVIOUS NOTE STATES PATIENT HAS BEEN NON-COMPLIANT FOLLOWING UO WITH DR BAINS THE UROLOGIS AT [facility]. CONTINUE ICU MONITORING FOR SEPSIS
--- NOTE | 2019-04-28 12:45 | PN ---
Teaching Attending Note Name of Resident: Artemio Armas ATTENDING PHYSICIAN STATEMENT I saw and evaluated the patient. I reviewed the resident's note and discussed the case with the resident. I agree with the resident's findings and plan as documented. SUBJECTIVE: Pt seen and examined in the ICU. Pressors off this AM. Urine and blood cultures growing pansensitive E coli. Febrile overnight. OBJECTIVE: Vital Signs Period Temp Pulse Resp BP Sys/Alvarez Pulse Ox Last 24 Hr 97.5 F-103.1 F 66-98 15-33 87-141/56-121 99-99 Intake & Output 04/25/19 04/26/19 04/27/19 04/28/19 23:59 23:59 23:59 23:59 Intake Total 2735 4280 49 Output Total 400 Balance 2735 3880 49 Weight 54.431 kg 56.608 kg 56.245 kg Gen: NAD at rest Heart: RRR Lung: decreased breath sounds at the bases Abd: soft, nontender Ext: no edema CBC, BMP 04/28/19 05:30 04/28/19 05:30 Active Medications Acetaminophen (Tylenol -) 650 mg PO Q6H PRN PRN Reason: FEVER Last Admin: 04/26/19 10:31 Dose: 650 mg Atorvastatin Calcium (Lipitor -) 10 mg PO HS AYAD Last Admin: 04/27/19 21:41 Dose: 10 mg Chlorhexidine Gluconate (Hibiclens For Decolonization -) 1 applic TP HS AYAD Last Admin: 04/27/19 21:40 Dose: 1 applic Heparin Sodium (Porcine) (Heparin -) 5,000 unit SQ BID [facility] Last Admin: 04/28/19 09:23 Dose: 5,000 unit Norepinephrine Bitartrate 8, (000 mcg/ Dextrose) 500 mls @ 18.75 mls/hr IV TITR [facility]; Protocol Last Titration: 04/28/19 08:15 Dose: 0 mcg/min, 0 mls/hr Sodium Bicarbonate 50 meq/ (Sodium Chloride) 1,050 mls @ 100 mls/hr IV ASDIR AYAD Last Admin: 04/27/19 18:13 Dose: 100 mls/hr Cefazolin Sodium/Dextrose (Ancef 2 Gm Premixed Ivpb -) 2 gm in 50 mls @ 100 mls /hr IVPB Q8H-IV [facility] Last Admin: 04/28/19 10:41 Dose: 100 mls/hr Insulin Aspart (Novolog Vial Sliding Scale -) [facility] Last Admin: 04/28/19 07:59 Dose: 4 units Mupirocin (Bactroban Ointment (For Decolonization) -) 1 applic NS BID [facility] Stop: 05/01/19 21:59 Last Admin: 04/28/19 09:26 Dose: 1 applic Oxycodone HCl (Roxicodone -) 5 mg PO Q6H [facility] Last Admin: 04/28/19 09:06 Dose: Not Given Pantoprazole Sodium (Protonix -) 40 mg PO DAILY [facility] Last Admin: 04/28/19 09:25 Dose: 40 mg Polyethylene Glycol (Miralax (For Daily Use) -) 17 gm PO DAILY [facility] Last Admin: 04/28/19 09:25 Dose: Not Given Sertraline HCl (Zoloft -) 25 mg PO DAILY [facility] Last Admin: 04/28/19 09:25 Dose: 25 mg ASSESSMENT AND PLAN: UTI Gram Negative Bacteremia Septic Shock Acute Kidney Injury improving Lactic Acidosis resolved h/o Vesiculovaginal Fistula HTN DM Hyperlipidemia Anemia - continue antibiotics - off pressors, maintain MAP >65 - IVF - monitor urine output, creatinine - O2 to keep SpO2 >90% - PO as tolerated - DVT prophylaxis critical care time spent in reviewing chart, evaluating patient and formulating plan 35 min
--- NOTE | 2019-04-28 12:49 | PN ---
Progress Note, Physician History of Present Illness: Pt seen and examined at bedside. She is awake and alert. She denies shortness of breath. - Current Medication List Current Medications: Active Medications Acetaminophen (Tylenol -) 650 mg PO Q6H PRN PRN Reason: FEVER Last Admin: 04/26/19 10:31 Dose: 650 mg Atorvastatin Calcium (Lipitor -) 10 mg PO HS [facility] Last Admin: 04/27/19 21:41 Dose: 10 mg Chlorhexidine Gluconate (Hibiclens For Decolonization -) 1 applic TP HS [facility] Last Admin: 04/27/19 21:40 Dose: 1 applic Heparin Sodium (Porcine) (Heparin -) 5,000 unit SQ BID [facility] Last Admin: 04/28/19 09:23 Dose: 5,000 unit Norepinephrine Bitartrate 8, (000 mcg/ Dextrose) 500 mls @ 18.75 mls/hr IV TITR [facility]; Protocol Last Titration: 04/28/19 08:15 Dose: 0 mcg/min, 0 mls/hr Sodium Bicarbonate 50 meq/ (Sodium Chloride) 1,050 mls @ 100 mls/hr IV ASDIR [facility] Last Admin: 04/27/19 18:13 Dose: 100 mls/hr Cefazolin Sodium/Dextrose (Ancef 2 Gm Premixed Ivpb -) 2 gm in 50 mls @ 100 mls /hr IVPB Q8H-IV [facility] Last Admin: 04/28/19 10:41 Dose: 100 mls/hr Insulin Aspart (Novolog Vial Sliding Scale -) 1 vial SQ BIDAC [facility]; Protocol Last Admin: 04/28/19 07:59 Dose: 4 units Mupirocin (Bactroban Ointment (For Decolonization) -) 1 applic NS BID [facility] Stop: 05/01/19 21:59 Last Admin: 04/28/19 09:26 Dose: 1 applic Oxycodone HCl (Roxicodone -) 5 mg PO Q6H [facility] Last Admin: 04/28/19 09:06 Dose: Not Given Pantoprazole Sodium (Protonix -) 40 mg PO DAILY [facility] Last Admin: 04/28/19 09:25 Dose: 40 mg Polyethylene Glycol (Miralax (For Daily Use) -) 17 gm PO DAILY [facility] Last Admin: 04/28/19 09:25 Dose: Not Given Sertraline HCl (Zoloft -) 25 mg PO DAILY [facility] Last Admin: 04/28/19 09:25 Dose: 25 mg - Objective Vital Signs: Vital Signs Temperature 98.6 F 04/28/19 10:13 Pulse Rate 74 04/28/19 12:00 Respiratory Rate 15 04/28/19 12:00 Blood Pressure 87/69 L 04/28/19 12:00 O2 Sat by Pulse Oximetry (%) 99 04/28/19 08:27 Constitutional: Yes: Calm Eyes: Yes: Conjunctiva Clear HENT: Yes: Atraumatic Cardiovascular: Yes: S1, S2 Respiratory: Yes: CTA Bilaterally Gastrointestinal: Yes: Soft Genitourinary: Yes: WNL Musculoskeletal: Yes: WNL Edema: No Neurological: Yes: Oriented Psychiatric: Yes: Oriented Labs: CBC, BMP 04/28/19 05:30 04/28/19 05:30 INR, PTT INR 1.13 (0.83-1.09) H 04/25/19 19:28 Problem List - Problems (1) LONG (acute kidney injury) Code(s): N17.9 - ACUTE KIDNEY FAILURE, UNSPECIFIED (2) Sepsis Code(s): A41.9 - SEPSIS, UNSPECIFIED ORGANISM Assessment/Plan Current Medications Generic Name Dose Route Start Last Admin Trade Name Freq PRN Reason Stop Dose Admin Acetaminophen 650 mg 04/26/19 00:14 04/26/19 10:31 Tylenol - PO 650 mg Q6H PRN Administration FEVER Atorvastatin Calcium 10 mg 04/26/19 22:00 04/27/19 21:41 Lipitor - PO 10 mg HS AYAD Administration Chlorhexidine Gluconate 1 applic 04/26/19 22:00 04/27/19 21:40 Hibiclens For Decolonization - TP 1 applic HS AYAD Administration Heparin Sodium (Porcine) 5,000 unit 04/26/19 10:00 04/28/19 09:23 Heparin - SQ 5,000 unit BID [facility] Administration Norepinephrine Bitartrate 8, 500 mls @ 18.75 mls/hr 04/26/19 20:45 04/28/19 08:15 000 mcg/ Dextrose IV 0 mcg/min TITR AYAD 0 mls/hr Titration Protocol 5 MCG/MIN Sodium Bicarbonate 50 meq/ 1,050 mls @ 100 mls/hr 04/27/19 16:45 04/27/19 18: 13 Sodium Chloride IV 100 mls/hr ASDIR AYAD Administration Cefazolin Sodium/Dextrose 2 gm in 50 mls @ 100 mls/hr 04/28/19 10:00 10:41 Ancef 2 Gm Premixed Ivpb - IVPB 100 mls/hr Q8H-IV [facility] Administration Insulin Aspart 1 vial 04/26/19 07:00 04/28/19 07:59 Novolog Vial Sliding Scale - SQ 4 units BIDAC [facility] Administration Protocol Mupirocin 1 applic 04/26/19 22:00 04/28/19 09:26 Bactroban Ointment (For Decolonization) - NS 05/01/19 21:59 1 applic BID [facility] Administration Oxycodone HCl 5 mg 04/28/19 02:00 04/28/19 09:06 Roxicodone - PO Not Given Q6H AYAD Pantoprazole Sodium 40 mg 04/26/19 13:15 04/28/19 09:25 Protonix - PO 40 mg DAILY [facility] Administration Polyethylene Glycol 17 gm 04/26/19 10:00 04/28/19 09:25 Miralax (For Daily Use) - PO Not Given DAILY [facility] Sertraline HCl 25 mg 04/26/19 10:00 04/28/19 09:25 Zoloft - PO 25 mg DAILY [facility]AD Administration Impression 1. LONG 2. sepsis 3. UTI 4. hypotension 5. anemia 6. vesiculovaginal fistula 7. metabolic acidosis Plan - cont fluids - repeat labs in am - replace mag - replace phos - cont ICU care - LONG likely from sepsis and pre-renal disease
[2019-04-28] MEDS: NAPH,MB-DB/K PH,MBDB POWDER PACKET PO SCH ×2 (13:14→21:27)
[2019-04-28] MEDS ORDERED: SODIUM BICARBONATE 8.4% - 50 MEQ in SODIUM CHLORIDE 0.45% 1,000 ML IV SCH (16:42)
[2019-04-28 19:00] LABS: COCAINE, UR NEGATIVE ng/ml (CUTOFF=300); METHADONE, UR NEGATIVE ng/ml (CUTOFF=300); PHENCYCLIDINE,URINE NEGATIVE ng/ml (CUTOFF=25); URINE AMPHETAMINES NEGATIVE ng/ml (CUTOFF=500); URINE BARBITURATES NEGATIVE ng/ml (CUTOFF=200); URINE BENZODIAZEPINES NEGATIVE ng/ml (CUTOFF=200)
[2019-04-28 19:05] LABS: OPIATES, URI POSITIVE ng/ml (CUTOFF=300)
[2019-04-28] MEDS: ATORVASTATIN CA 10 MG TABLET (FP) PO SCH (21:27)
[2019-04-28] MEDS: CHLORHEXIDINE GLUCONATE 4% CLEANSER FOR DECOLONIZATION TP SCH (21:28)
[2019-04-29] MEDS: oxyCODONE HCL 5 MG TABLET PO SCH ×5 (01:32→21:26)
[2019-04-29] MEDS: CEFAZOLIN 2 GM/D5W 2 GM/50 ML ML IVPB SCH ×3 (01:33→17:52)
[2019-04-29] MEDS: ACETAMINOPHEN 325 MG TABLET (FP) PO PRN ×2 (06:01→17:54)
[2019-04-29 06:18] LABS: BASO % 0.3 % (0-2.0); EOS % 2.7 % (0-4.5); HEMATOCRIT 23.8 % (32.4-45.2); HEMOGLOBIN 8.2 GM/dL (10.7-15.3); LYMPH % 11.4 % (8-40); MCH 30.5 pg (25.7-33.7); MCHC 34.5 g/dl (32.0-36.0); MEAN CELL VOLUME 88.4 fl (80-96); MEAN PLT VOLUME 8.5 fl (7.5-11.1); MONO % 9.5 % (3.8-10.2); NEUT % 76.1 % (42.8-82.8); PLATELET COUNT 161 K/MM3 (134-434); RDW 12.7 % (11.6-15.6); WHITE BLOOD COUNT 7.1 K/mm3 (4.0-10.0)
[2019-04-29 06:34] LABS: BILIRUBIN,TOTAL 0.2 mg/dL (0.2-1); BLOOD UREA NITROGEN 23.4 mg/dL (7-18); CALCIUM 7.7 mg/dL (8.5-10.1); CREATININE 0.9 mg/dL (0.55-1.3); POTASSIUM 3.2 mmol/L (3.5-5.1)
[2019-04-29] MEDS: INSULIN SLIDING SCALE (NOVOLOG) 1 VIAL SQ SCH ×2 (06:58→17:13)
--- NOTE | 2019-04-29 08:13 | PN ---
Physical Exam: SUBJECTIVE: Patient seen and examined by the [facility]. States her RLQ pain has improved, also endorses B/L LE swelling. Has been ambulating since yesterday without any issues. OBJECTIVE: Vital Signs Period Temp Pulse Resp BP Sys/Alvarez Pulse Ox Last 24 Hr 97.8 F-98.7 F 59-83 14-25 87-128/55-71 99-100 GENERAL: AOx3 EYES: PERRL, extraocular movements intact, sclera anicteric, conjunctiva clear. No ptosis. ENT: Ears normal, nares patent, oropharynx clear without exudates, moist mucous membranes. NECK: Trachea midline, full range of motion, supple. LUNGS: Breath sounds equal, clear to auscultation bilaterally, no wheezes, no crackles, no accessory muscle use. HEART: Regular rate and rhythm, S1, S2 without murmur, rub or gallop. ABDOMEN: Soft, RLQ tenderness EXTREMITIES: 2+ pulses, warm, well-perfused, mild edema B/L NEUROLOGICAL: Motor 5/5, sensations intact PSYCH: Normal mood, normal affect. SKIN: Warm, dry, normal turgor, no rashes or lesions noted Laboratory Results - last 24 hr 04/28/19 04/28/19 04/29/19 16:50 18:00 05:45 WBC 7.1 RBC 2.70 L Hgb 8.2 L Hct 23.8 L MCV 88.4 MCH 30.5 MCHC 34.5 RDW 12.7 Plt Count 161 MPV 8.5 Absolute Neuts (auto) 5.4 Neutrophils % 76.1 Lymphocytes % 11.4 D Monocytes % 9.5 Eosinophils % 2.7 D Basophils % 0.3 Nucleated RBC % 0 Sodium Potassium Chloride Carbon Dioxide Anion Gap BUN Creatinine Est GFR (CKD-EPI)AfAm Est GFR (CKD-EPI)NonAf POC Glucometer 143 Random Glucose Calcium Total Bilirubin AST ALT Alkaline Phosphatase Total Protein Albumin Opiates Screen Positive A* Methadone Screen Negative Barbiturate Screen Negative Phencyclidine Screen Negative Ur Amphetamines Screen Negative MDMA (Ecstasy) Screen Negative Benzodiazepines Screen Negative Cocaine Screen Negative U Marijuana (THC) Screen Negative 04/29/19 05:45 WBC RBC Hgb Hct MCV MCH MCHC RDW Plt Count MPV Absolute Neuts (auto) Neutrophils % Lymphocytes % Monocytes % Eosinophils % Basophils % Nucleated RBC % Sodium 140 Potassium 3.2 L Chloride 111 H Carbon Dioxide 20 L Anion Gap 9 BUN 23.4 H Creatinine 0.9 Est GFR (CKD-EPI)AfAm 77.77 Est GFR (CKD-EPI)NonAf 67.10 POC Glucometer Random Glucose 75 Calcium 7.7 L Total Bilirubin 0.2 AST 73 H ALT 45 Alkaline Phosphatase 117 Total Protein 5.0 L Albumin 2.0 L Opiates Screen Methadone Screen Barbiturate Screen Phencyclidine Screen Ur Amphetamines Screen MDMA (Ecstasy) Screen Benzodiazepines Screen Cocaine Screen U Marijuana (THC) Screen Active Medications Generic Name Dose Route Start Last Admin Trade Name Freq PRN Reason Stop Dose Admin Acetaminophen 650 mg 04/26/19 00:14 04/29/19 06:01 Tylenol - PO 650 mg Q6H PRN Administration FEVER Atorvastatin Calcium 10 mg 04/26/19 22:00 04/28/19 21:27 Lipitor - PO 10 mg HS AYAD Administration Chlorhexidine Gluconate 1 applic 04/26/19 22:00 04/28/19 21:28 Hibiclens For Decolonization - TP 1 applic HS [facility]AD Administration Heparin Sodium (Porcine) 5,000 unit 04/26/19 10:00 04/28/19 21:27 Heparin - SQ 5,000 unit BID [facility] Administration Norepinephrine Bitartrate 8, 500 mls @ 18.75 mls/hr 04/26/19 20:45 04/28/19 08:15 000 mcg/ Dextrose IV 0 mcg/min TITR AYAD 0 mls/hr Titration Protocol 5 MCG/MIN Cefazolin Sodium/Dextrose 2 gm in 50 mls @ 100 mls/hr 04/28/19 10:00 01:33 Ancef 2 Gm Premixed Ivpb - IVPB 100 mls/hr Q8H-IV [facility]YAD Administration Sodium Bicarbonate 50 meq/ 1,050 mls @ 100 mls/hr 04/28/19 16:42 04/28/19 18: 09 Sodium Chloride IV 100 mls/hr ASDIR AYAD Administration Insulin Aspart 1 vial 04/26/19 07:00 04/29/19 06:58 Novolog Vial Sliding Scale - SQ Not Given BIDAC [facility] Protocol Mupirocin 1 applic 04/26/19 22:00 04/28/19 21:26 Bactroban Ointment (For Decolonization) - NS 05/01/19 21:59 1 applic BID AYAD Administration Oxycodone HCl 5 mg 04/28/19 02:00 04/29/19 01:33 Roxicodone - PO Not Given Q6H AYAD Pantoprazole Sodium 40 mg 04/26/19 13:15 04/28/19 09:25 Protonix - PO 40 mg DAILY [facility] Administration Polyethylene Glycol 17 gm 04/26/19 10:00 04/28/19 09:25 Miralax (For Daily Use) - PO Not Given DAILY AYAD Potassium Phos/Sodium Phos 1 packet 04/28/19 13:00 04/28/19 21:27 Phos-Nak Packet - PO 04/29/19 22:01 1 packet BID AYAD Administration Sertraline HCl 25 mg 04/26/19 10:00 04/28/19 09:25 Zoloft - PO 25 mg DAILY AYAD Administration ASSESSMENT/PLAN: 63 y/o/f with PMHx of HTN, HLD, NIDDM, vesiculovaginal fistula, recurrent multidrug resistant UTIs presented to the ER 04/25 for fever, abd pain, and dysuria. Patient was admitted to floors for urosepsis but has been consistently hypotensive despite adequate fluid resuscitation. Accepted to ICU for hypotension likely requiring pressor support. Central line places 04/26, been off pressors for over 24H. #Neuro - AOx3 - Continue Sertraline for depression - Patient on ATC IV Tylenol for pain, Oxycodone 5mg q6h PRN for severe pain ( 10mg at home). She may experience withdrawal if this is D/Skinny abruptly #Cardio - Norepi stopped 02/26, RIJ line removed - Trop negative #Pulm - CXR with no acute process seen #GI - CTAP - fecal retention with no evidence of acute pathology within the abdomen or pelvis - RLQ US: no evidence of hernia - H&H 01/14.8 -> 8.2/23.6 -> 8.2/23.8 #Renal - LONG likely pre-renal from sepsis, resolved, Cr 1.2 -> 0.9 - Hx of vesicovaginal fistula, outpatient urology follow up - UTox positive for opiates #ID - Cefazolin 04/28 , switched from Meropenem as per ID - WBC 12.9 -> 9.3-> 10.5-> 11.3 -> 7.1 - Blood Cx from 04/25 : LF G- Bacilli, Ucx EColi - Urine Cx from 04/25: E.Coli #Endo - Hx of DM, BGM ISS #Prophylaxis - Heparin SQ 5000 - Protonix 40mg PO #FEN - 05/27 N/S @ 75 - K 3.2, 40mEQ PO K+ ordered - Na controlled diet #Dispo - Stable for transfer to M/S Visit type - Emergency Visit Emergency Visit: Yes ED Registration Date: 04/25/19 Care time: The patient presented to the Emergency Department on the above date and was hospitalized for further evaluation of their emergent condition. - New Patient This patient is new to me today: Yes Date on this admission: 05/05/19 - Critical Care Critical Care patient: Yes Total Critical Care Time (in minutes): 37 Critical Care Statement: The care of this patient involved high complexity decision making to prevent further life threatening deterioration of the patient 's condition and/or to evaluate & treat vital organ system(s) failure or risk of failure. ATTENDING PHYSICIAN STATEMENT I saw and evaluated the patient. I reviewed the resident's note and discussed the case with the resident. I agree with the resident's findings and plan as documented. SUBJECTIVE: OBJECTIVE: ASSESSMENT AND PLAN:
[2019-04-29] MEDS ORDERED: POTASSIUM CHLORIDE TABS 20 MEQ TABLET.ER (FP) PO ONE ×2 (08:16→18:00)
[2019-04-29] MEDS: NAPH,MB-DB/K PH,MBDB POWDER PACKET PO SCH (09:10)
[2019-04-29] MEDS: HEPARIN NA (PORCINE) 5,000 UNITS/ML 1ML VIAL SQ SCH ×2 (09:11→21:26)
[2019-04-29] MEDS: PANTOPRAZOLE 40 MG TABLET (FP) PO SCH (09:11)
[2019-04-29] MEDS: SERTRALINE HCL 25 MG TABLET (FP) PO SCH (09:11)
[2019-04-29] MEDS: POLYETHYLENE GLYCOL 3350 119 GM BTL PO SCH (09:12)
[2019-04-29] MEDS ORDERED: SODIUM CHLORIDE 0.45% 1,000 ML IV SCH ×3 (10:45→14:33)
[2019-04-29] MEDS: MUPIROCIN 2% TOPICAL OINTMENT FOR DECOLONIZATION NS SCH ×2 (11:59→21:28)
--- NOTE | 2019-04-29 12:26 | PN ---
Teaching Attending Note Name of Resident: Artemio Armas ATTENDING PHYSICIAN STATEMENT I saw and evaluated the patient. I reviewed the resident's note and discussed the case with the resident. I agree with the resident's findings and plan as documented. SUBJECTIVE: Patient seen and examined in the ICU. Remains off pressors. No CP or SOB. Intake & Output 04/26/19 04/27/19 04/28/19 04/29/19 23:59 23:59 23:59 23:59 Intake Total 2735 4280 2162 1000 Output Total 400 Balance 2735 3880 2162 1000 Weight 124 lb 12.8 oz 124 lb Last Vital Signs Temp Pulse Resp BP Pulse Ox 98.4 F 70 19 120/70 96 04/29/19 10:00 04/29/19 12:00 04/29/19 12:00 04/29/19 12:00 04/29/19 08:35 Active Medications Acetaminophen (Tylenol -) 650 mg PO Q6H PRN PRN Reason: FEVER Last Admin: 04/29/19 06:01 Dose: 650 mg Atorvastatin Calcium (Lipitor -) 10 mg PO HS AYAD Last Admin: 04/28/19 21:27 Dose: 10 mg Chlorhexidine Gluconate (Hibiclens For Decolonization -) 1 applic TP HS [facility] Last Admin: 04/28/19 21:28 Dose: 1 applic Heparin Sodium (Porcine) (Heparin -) 5,000 unit SQ BID [facility] Last Admin: 04/29/19 09:11 Dose: 5,000 unit Norepinephrine Bitartrate 8, (000 mcg/ Dextrose) 500 mls @ 18.75 mls/hr IV TITR [facility]; Protocol Last Titration: 04/28/19 08:15 Dose: 0 mcg/min, 0 mls/hr Cefazolin Sodium/Dextrose (Ancef 2 Gm Premixed Ivpb -) 2 gm in 50 mls @ 100 mls /hr IVPB Q8H-IV [facility] Last Admin: 04/29/19 09:11 Dose: 100 mls/hr Sodium Chloride (1/2 Normal Saline) 1,000 mls @ 75 mls/hr IV ASDIR [facility] Last Admin: 04/29/19 11:04 Dose: 75 mls/hr Insulin Aspart (Novolog Vial Sliding Scale -) 1 vial SQ BIDAC [facility]; Protocol Last Admin: 04/29/19 06:58 Dose: Not Given Mupirocin (Bactroban Ointment (For Decolonization) -) 1 applic NS BID [facility] Stop: 05/01/19 21:59 Last Admin: 04/29/19 11:59 Dose: 1 applic Oxycodone HCl (Roxicodone -) 5 mg PO Q6H [facility] Last Admin: 04/29/19 09:10 Dose: 5 mg Pantoprazole Sodium (Protonix -) 40 mg PO DAILY [facility] Last Admin: 04/29/19 09:11 Dose: 40 mg Polyethylene Glycol (Miralax (For Daily Use) -) 17 gm PO DAILY [facility] Last Admin: 04/29/19 09:12 Dose: Not Given Potassium Phos/Sodium Phos (Phos-Nak Packet -) 1 packet PO BID [facility] Stop: 04/29/19 22:01 Last Admin: 04/29/19 09:10 Dose: 1 packet Sertraline HCl (Zoloft -) 25 mg PO DAILY [facility] Last Admin: 04/29/19 09:11 Dose: 25 mg OBJECTIVE: Intake & Output 04/26/19 04/27/19 04/28/19 04/29/19 23:59 23:59 23:59 23:59 Intake Total 2735 4280 2162 1000 Output Total 400 Balance 2735 3880 2162 1000 Weight 124 lb 12.8 oz 124 lb Last Vital Signs Temp Pulse Resp BP Pulse Ox 98.4 F 70 19 120/70 96 04/29/19 10:00 04/29/19 12:00 04/29/19 12:00 04/29/19 12:00 04/29/19 08:35 Active Medications Acetaminophen (Tylenol -) 650 mg PO Q6H PRN PRN Reason: FEVER Last Admin: 04/29/19 06:01 Dose: 650 mg Atorvastatin Calcium (Lipitor -) 10 mg PO HS [facility] Last Admin: 04/28/19 21:27 Dose: 10 mg Chlorhexidine Gluconate (Hibiclens For Decolonization -) 1 applic TP HS [facility] Last Admin: 04/28/19 21:28 Dose: 1 applic Heparin Sodium (Porcine) (Heparin -) 5,000 unit SQ BID [facility] Last Admin: 04/29/19 09:11 Dose: 5,000 unit Norepinephrine Bitartrate 8, (000 mcg/ Dextrose) 500 mls @ 18.75 mls/hr IV TITR [facility]; Protocol Last Titration: 04/28/19 08:15 Dose: 0 mcg/min, 0 mls/hr Cefazolin Sodium/Dextrose (Ancef 2 Gm Premixed Ivpb -) 2 gm in 50 mls @ 100 mls /hr IVPB Q8H-IV [facility] Last Admin: 04/29/19 09:11 Dose: 100 mls/hr Sodium Chloride (1/2 Normal Saline) 1,000 mls @ 75 mls/hr IV ASDIR [facility] Last Admin: 04/29/19 11:04 Dose: 75 mls/hr Insulin Aspart (Novolog Vial Sliding Scale -) 1 vial SQ BIDAC [facility]; Protocol Last Admin: 04/29/19 06:58 Dose: Not Given Mupirocin (Bactroban Ointment (For Decolonization) -) 1 applic NS BID [facility] Stop: 05/01/19 21:59 Last Admin: 04/29/19 11:59 Dose: 1 applic Oxycodone HCl (Roxicodone -) 5 mg PO Q6H [facility] Last Admin: 04/29/19 09:10 Dose: 5 mg Pantoprazole Sodium (Protonix -) 40 mg PO DAILY [facility] Last Admin: 04/29/19 09:11 Dose: 40 mg Polyethylene Glycol (Miralax (For Daily Use) -) 17 gm PO DAILY [facility] Last Admin: 04/29/19 09:12 Dose: Not Given Potassium Phos/Sodium Phos (Phos-Nak Packet -) 1 packet PO BID [facility] Stop: 04/29/19 22:01 Last Admin: 04/29/19 09:10 Dose: 1 packet Sertraline HCl (Zoloft -) 25 mg PO DAILY [facility] Last Admin: 04/29/19 09:11 Dose: 25 mg Gen: NAD at rest Heart: RRR Lung: decreased breath sounds at the bases Abd: soft, nontender Ext: no edema Laboratory Results - last 24 hr 04/28/19 04/28/19 04/29/19 16:50 18:00 05:45 WBC 7.1 RBC 2.70 L Hgb 8.2 L Hct 23.8 L MCV 88.4 MCH 30.5 MCHC 34.5 RDW 12.7 Plt Count 161 MPV 8.5 Absolute Neuts (auto) 5.4 Neutrophils % 76.1 Lymphocytes % 11.4 D Monocytes % 9.5 Eosinophils % 2.7 D Basophils % 0.3 Nucleated RBC % 0 Sodium Potassium Chloride Carbon Dioxide Anion Gap BUN Creatinine Est GFR (CKD-EPI)AfAm Est GFR (CKD-EPI)NonAf POC Glucometer 143 Random Glucose Calcium Total Bilirubin AST ALT Alkaline Phosphatase Total Protein Albumin Opiates Screen Positive A* Methadone Screen Negative Barbiturate Screen Negative Phencyclidine Screen Negative Ur Amphetamines Screen Negative MDMA (Ecstasy) Screen Negative Benzodiazepines Screen Negative Cocaine Screen Negative U Marijuana (THC) Screen Negative 04/29/19 05:45 WBC RBC Hgb Hct MCV MCH MCHC RDW Plt Count MPV Absolute Neuts (auto) Neutrophils % Lymphocytes % Monocytes % Eosinophils % Basophils % Nucleated RBC % Sodium 140 Potassium 3.2 L Chloride 111 H Carbon Dioxide 20 L Anion Gap 9 BUN 23.4 H Creatinine 0.9 Est GFR (CKD-EPI)AfAm 77.77 Est GFR (CKD-EPI)NonAf 67.10 POC Glucometer Random Glucose 75 Calcium 7.7 L Total Bilirubin 0.2 AST 73 H ALT 45 Alkaline Phosphatase 117 Total Protein 5.0 L Albumin 2.0 L Opiates Screen Methadone Screen Barbiturate Screen Phencyclidine Screen Ur Amphetamines Screen MDMA (Ecstasy) Screen Benzodiazepines Screen Cocaine Screen U Marijuana (THC) Screen ASSESSMENT AND PLAN: UTI Gram Negative Bacteremia Septic Shock Acute Kidney Injury improving Lactic Acidosis resolved h/o Vesiculovaginal Fistula HTN DM Hyperlipidemia Anemia - ABX per ID - IVF - monitor urine output, creatinine - O2 to keep SpO2 >90% - PO as tolerated - DVT prophylaxis - Floor Dr Guerrero Critical care time spent in reviewing chart, evaluating patient and formulating plan 35 min
--- NOTE | 2019-04-29 14:26 | PN ---
Progress Note, Physician Chief Complaint: PATIENT SEEN IN ICU AWAKE MORE ALERT FEELING BETTER - Current Medication List Current Medications: Active Medications Acetaminophen (Tylenol -) 650 mg PO Q6H PRN PRN Reason: FEVER Last Admin: 04/29/19 06:01 Dose: 650 mg Atorvastatin Calcium (Lipitor -) 10 mg PO HS [facility] Last Admin: 04/28/19 21:27 Dose: 10 mg Chlorhexidine Gluconate (Hibiclens For Decolonization -) 1 applic TP HS [facility] Last Admin: 04/28/19 21:28 Dose: 1 applic Heparin Sodium (Porcine) (Heparin -) 5,000 unit SQ BID [facility] Last Admin: 04/29/19 09:11 Dose: 5,000 unit Norepinephrine Bitartrate 8, (000 mcg/ Dextrose) 500 mls @ 18.75 mls/hr IV TITR [facility]; Protocol Last Titration: 04/28/19 08:15 Dose: 0 mcg/min, 0 mls/hr Cefazolin Sodium/Dextrose (Ancef 2 Gm Premixed Ivpb -) 2 gm in 50 mls @ 100 mls /hr IVPB Q8H-IV [facility] Last Admin: 04/29/19 09:11 Dose: 100 mls/hr Sodium Chloride (1/2 Normal Saline) 1,000 mls @ 75 mls/hr IV ASDIR [facility] Last Admin: 04/29/19 11:04 Dose: 75 mls/hr Insulin Aspart (Novolog Vial Sliding Scale -) 1 vial SQ BIDAC [facility]; Protocol Last Admin: 04/29/19 06:58 Dose: Not Given Mupirocin (Bactroban Ointment (For Decolonization) -) 1 applic NS BID [facility] Stop: 05/01/19 21:59 Last Admin: 04/29/19 11:59 Dose: 1 applic Oxycodone HCl (Roxicodone -) 5 mg PO Q6H [facility] Last Admin: 04/29/19 13:06 Dose: 5 mg Pantoprazole Sodium (Protonix -) 40 mg PO DAILY [facility] Last Admin: 04/29/19 09:11 Dose: 40 mg Polyethylene Glycol (Miralax (For Daily Use) -) 17 gm PO DAILY [facility] Last Admin: 04/29/19 09:12 Dose: Not Given Potassium Phos/Sodium Phos (Phos-Nak Packet -) 1 packet PO BID [facility] Stop: 04/29/19 22:01 Last Admin: 04/29/19 09:10 Dose: 1 packet Sertraline HCl (Zoloft -) 25 mg PO DAILY [facility] Last Admin: 04/29/19 09:11 Dose: 25 mg - Objective Vital Signs: Vital Signs Temperature 98.4 F 04/29/19 14:00 Pulse Rate 56 L 04/29/19 14:00 Respiratory Rate 19 04/29/19 14:00 Blood Pressure 122/60 04/29/19 14:00 O2 Sat by Pulse Oximetry (%) 96 04/29/19 08:35 Constitutional: Yes: Mild Distress Cardiovascular: Yes: Regular Rate and Rhythm Respiratory: Yes: WNL Gastrointestinal: Yes: Tenderness (RLQ) Musculoskeletal: Yes: Muscle Weakness Edema: No Neurological: Yes: Other Psychiatric: Yes: Other Labs: CBC, BMP 04/29/19 05:45 04/29/19 05:45 INR, PTT INR 1.13 (0.83-1.09) H 04/25/19 19:28 Problem List - Problems (1) Constipation Code(s): K59.00 - CONSTIPATION, UNSPECIFIED (2) Depression Code(s): F32.9 - MAJOR DEPRESSIVE DISORDER, SINGLE EPISODE, UNSPECIFIED (3) Gram negative sepsis Code(s): A41.50 - GRAM-NEGATIVE SEPSIS, UNSPECIFIED (4) HLD (hyperlipidemia) Code(s): E78.5 - HYPERLIPIDEMIA, UNSPECIFIED (5) HTN (hypertension) Code(s): I10 - ESSENTIAL (PRIMARY) HYPERTENSION (6) Hematuria Code(s): R31.9 - HEMATURIA, UNSPECIFIED (7) Pelvic fluid collection Code(s): R18.8 - OTHER ASCITES (8) Vesicovaginal fistula Code(s): N82.0 - VESICOVAGINAL FISTULA Assessment/Plan IV ABX PER ID SEPSIS RESOLVING BP STABLE ON IVF CONTINUE 2ND OPINION ASKED FOR BY PATIENT DR JADYN SCHMITZ SURGERY CALLED FOR CONSULT START REGULAR DIET PAIN CONTROL OOB TO CHAIR DVT PROPHYLAXIS
[2019-04-29] MEDS ORDERED: NOREPINEPHRINE BITARTRATE 8,000 MCG in DEXTROSE 5%-WATER - 492 ML IV SCH (14:29)
--- NOTE | 2019-04-29 14:32 | PN ---
Progress Note, Physician History of Present Illness: Pt seen and examined at bedside. She is out of bed to chair. She denies shortness of breath. - Current Medication List Current Medications: Active Medications Acetaminophen (Tylenol -) 650 mg PO Q6H PRN PRN Reason: FEVER Last Admin: 04/29/19 06:01 Dose: 650 mg Atorvastatin Calcium (Lipitor -) 10 mg PO HS [facility] Last Admin: 04/28/19 21:27 Dose: 10 mg Chlorhexidine Gluconate (Hibiclens For Decolonization -) 1 applic TP HS [facility] Last Admin: 04/28/19 21:28 Dose: 1 applic Heparin Sodium (Porcine) (Heparin -) 5,000 unit SQ BID [facility] Last Admin: 04/29/19 09:11 Dose: 5,000 unit Norepinephrine Bitartrate 8, (000 mcg/ Dextrose) 500 mls @ 18.75 mls/hr IV TITR [facility]; Protocol Last Titration: 04/28/19 08:15 Dose: 0 mcg/min, 0 mls/hr Cefazolin Sodium/Dextrose (Ancef 2 Gm Premixed Ivpb -) 2 gm in 50 mls @ 100 mls /hr IVPB Q8H-IV [facility] Last Admin: 04/29/19 09:11 Dose: 100 mls/hr Sodium Chloride (1/2 Normal Saline) 1,000 mls @ 75 mls/hr IV ASDIR [facility] Last Admin: 04/29/19 11:04 Dose: 75 mls/hr Insulin Aspart (Novolog Vial Sliding Scale -) 1 vial SQ BIDAC [facility]; Protocol Last Admin: 04/29/19 06:58 Dose: Not Given Mupirocin (Bactroban Ointment (For Decolonization) -) 1 applic NS BID [facility] Stop: 05/01/19 21:59 Last Admin: 04/29/19 11:59 Dose: 1 applic Oxycodone HCl (Roxicodone -) 5 mg PO Q6H [facility] Last Admin: 04/29/19 13:06 Dose: 5 mg Pantoprazole Sodium (Protonix -) 40 mg PO DAILY [facility] Last Admin: 04/29/19 09:11 Dose: 40 mg Polyethylene Glycol (Miralax (For Daily Use) -) 17 gm PO DAILY [facility] Last Admin: 04/29/19 09:12 Dose: Not Given Potassium Phos/Sodium Phos (Phos-Nak Packet -) 1 packet PO BID [facility] Stop: 04/29/19 22:01 Last Admin: 04/29/19 09:10 Dose: 1 packet Sertraline HCl (Zoloft -) 25 mg PO DAILY [facility] Last Admin: 04/29/19 09:11 Dose: 25 mg - Objective Vital Signs: Vital Signs Temperature 98.4 F 04/29/19 14:00 Pulse Rate 56 L 04/29/19 14:00 Respiratory Rate 04/29/19 14:00 Blood Pressure 122/60 04/29/19 14:00 O2 Sat by Pulse Oximetry (%) 96 04/29/19 08:35 Constitutional: Yes: Calm Eyes: Yes: Conjunctiva Clear HENT: Yes: Atraumatic Neck: Yes: Supple Cardiovascular: Yes: S1, S2 Respiratory: Yes: CTA Bilaterally Musculoskeletal: Yes: WNL Edema: Yes Edema: LLE: Trace, RLE: Trace Neurological: Yes: Oriented Psychiatric: Yes: Oriented Labs: CBC, BMP 04/29/19 05:45 04/29/19 05:45 INR, PTT INR 1.13 (0.83-1.09) H 04/25/19 19:28 Problem List - Problems (1) LONG (acute kidney injury) Code(s): N17.9 - ACUTE KIDNEY FAILURE, UNSPECIFIED (2) Sepsis Code(s): A41.9 - SEPSIS, UNSPECIFIED ORGANISM Assessment/Plan Current Medications Generic Name Dose Route Start Last Admin Trade Name Freq PRN Reason Stop Dose Admin Acetaminophen 650 mg 04/29/19 14:29 Tylenol - PO Q6H PRN FEVER Atorvastatin Calcium 10 mg 04/29/19 22:00 Lipitor - PO HS [facility] Chlorhexidine Gluconate 1 applic 04/29/19 22:00 Hibiclens For Decolonization - TP HS [facility] Heparin Sodium (Porcine) 5,000 unit 04/29/19 22:00 Heparin - SQ BID [facility] Cefazolin Sodium/Dextrose 2 gm in 50 mls @ 100 mls/hr 04/29/19 18:00 Ancef 2 Gm Premixed Ivpb - IVPB Q8H-IV [facility] Norepinephrine Bitartrate 8, 500 mls @ 18.75 mls/hr 04/29/19 14:29 000 mcg/ Dextrose IV TITR [facility] Protocol 5 MCG/MIN Sodium Chloride 1,000 mls @ 75 mls/hr 04/29/19 14:29 1/2 Normal Saline IV ASDIR [facility] Insulin Aspart 1 vial 04/29/19 16:30 Novolog Vial Sliding Scale - SQ BIDAC [facility] Protocol Mupirocin 1 applic 04/29/19 22:00 Bactroban Ointment (For Decolonization) - NS 05/01/19 21:59 BID [facility] Oxycodone HCl 5 mg 04/29/19 20:00 Roxicodone - PO Q6H [facility] Pantoprazole Sodium 40 mg 04/30/19 10:00 Protonix - PO DAILY [facility] Polyethylene Glycol 17 gm 04/30/19 10:00 Miralax (For Daily Use) - PO DAILY [facility] Potassium Phos/Sodium Phos 1 packet 04/29/19 22:00 Phos-Nak Packet - PO 04/29/19 22:01 BID [facility] Sertraline HCl 25 mg 04/30/19 10:00 Zoloft - PO DAILY [facility] Impression 1. LONG 2. sepsis 3. UTI 4. hypotension 5. anemia 6. vesiculovaginal fistula 7. metabolic acidosis Plan - decrease rate of fluids - replace potassium - d/c bicarb from fluids - pt tolerating diet - d/c fluids of bp remains stable - LONG likely from sepsis and pre-renal disease
--- NOTE | 2019-04-29 19:52 | CONSULT ---
Consult Consult Specialty:: Surgery Reason for Consultation:: second opinion for vesico vaginal fistula and right inguinal pain - History of Present Illness Chief Complaint: right inguinal pain History of Present Illness: 63 y.o. with history of vesico-vaginal fistula admitted for urosepsis. Transferred out of ICU after clinical improvement. Patient also has right inguinal pain which she claims bothers her more than the fistula. Had RIH repair 20 years ago and started c/o pain about one year now. Denies appearance of inguinal bulge. - History Source History Provided By: Patient Limitations to Obtaining History: No Limitations - Past Medical History Cardio/Vascular: Yes: HTN, Hyperlipdemia Renal/: Yes: UTI Psych: Yes: Depression Endocrine: Yes: Diabetes Mellitus - Past Surgical History Past Surgical History: Yes: Cholecystectomy, Hernia Repair, Hysterectomy, Tubal Ligation - Alcohol/Substance Use Hx Alcohol Use: No History of Substance Use: reports: None - Smoking History Smoking history: Current every day smoker Have you smoked in the past 12 months: Yes Aproximately how many cigarettes per day: 15 - Social History Usual Living Arrangement: With Child ADL: Independent Occupation: not working History of Recent Travel: No Home Medications - Allergies Allergies/Adverse Reactions: Allergies Allergy/AdvReac Type Severity Reaction Status Date / Time Iodinated Contrast Media Allergy Verified 03/15/19 14:07 morphine AdvReac Verified 01/13/19 13:25 - Home Medications Home Medications: Ambulatory Orders Glyburide 5 mg PO BID 01/16/13 Meclizine HCl [Antivert -] 12.5 mg PO TID #10 tablet 01/16/13 Ramipril 5 mg PO DAILY 01/16/13 Simvastatin [Zocor -] 20 mg PO HS 01/16/13 metFORMIN HCL [Glucophage] 1,000 mg PO BID 01/16/13 Ketorolac Tromethamine [Toradol -] 10 mg PO Q6H #30 tablet 01/15/19 Sertraline HCl [Zoloft -] 25 mg PO DAILY tablet 01/15/19 Oxycodone HCl 10 mg PO TID 04/28/19 Review of Systems - Review of Systems Gastrointestinal: reports: Other (right inguinal pain) Physical Exam Vital Signs: Vital Signs Temperature 97.8 F 04/29/19 15:45 Pulse Rate 70 04/29/19 15:45 Respiratory Rate 19 04/29/19 15:45 Blood Pressure 125/71 04/29/19 15:45 O2 Sat by Pulse Oximetry (%) 96 04/29/19 08:35 Constitutional: Yes: No Distress Eyes: Yes: Conjunctiva Clear HENT: Yes: Normocephalic Neck: Yes: Supple Cardiovascular: Yes: Regular Rate and Rhythm Respiratory: Yes: CTA Bilaterally Gastrointestinal: Yes: Soft, Tenderness (right inguinal tenderness, no clear inguinal bulge on asking patient to cough) ...Rectal Exam: Yes: Deferred Labs: CBC, BMP 04/29/19 05:45 04/29/19 05:45 Imaging - Results Cat Scan: Report Reviewed, Image Reviewed Problem List - Problems (1) Vesicovaginal fistula Assessment/Plan: recommend consult at a tertiary care center for repair of vesicovaginal fistula Code(s): N82.0 - VESICOVAGINAL FISTULA (2) Inguinal hernia Assessment/Plan: possible recurrence will review CT scan no intervention necessary at this time until sepsis is completely resolved Code(s): K40.90 - UNIL INGUINAL HERNIA, W/O OBST OR GANGR, NOT SPCF RECUR Qualifiers: Recurrence: recurrent
[2019-04-29] MEDS: ATORVASTATIN CA 10 MG TABLET (FP) PO SCH (21:26)
[2019-04-29] MEDS: CHLORHEXIDINE GLUCONATE 4% CLEANSER FOR DECOLONIZATION TP SCH (21:29)
[2019-04-29] MEDS ORDERED: NAPH,MB-DB/K PH,MBDB POWDER PACKET PO SCH (22:00)
[2019-04-30] MEDS: CEFAZOLIN 2 GM/D5W 2 GM/50 ML ML IVPB SCH ×3 (01:46→17:01)
[2019-04-30] MEDS: INSULIN SLIDING SCALE (NOVOLOG) 1 VIAL SQ SCH ×2 (06:09→16:54)
[2019-04-30] MEDS: oxyCODONE HCL 5 MG TABLET PO SCH ×3 (06:09→17:54)
[2019-04-30] MEDS: SERTRALINE HCL 25 MG TABLET (FP) PO SCH (09:46)
[2019-04-30] MEDS: PANTOPRAZOLE 40 MG TABLET (FP) PO SCH (09:46)
[2019-04-30] MEDS: HEPARIN NA (PORCINE) 5,000 UNITS/ML 1ML VIAL SQ SCH ×2 (09:46→22:14)
[2019-04-30] MEDS: MUPIROCIN 2% TOPICAL OINTMENT FOR DECOLONIZATION NS SCH ×2 (09:47→22:15)
[2019-04-30] MEDS: POLYETHYLENE GLYCOL 3350 119 GM BTL PO SCH (09:52)
--- NOTE | 2019-04-30 12:09 | PN ---
Progress Note, Physician Chief Complaint: Vesicovaginal Fistula RLQ pain History of Present Illness: Previous notes and events reviewed awake and alert NAD complain of RLQ complain of dysuria no leukocytosis afebrile - Current Medication List Current Medications: Active Medications Acetaminophen (Tylenol -) 650 mg PO Q6H PRN PRN Reason: FEVER Last Admin: 04/29/19 17:54 Dose: 650 mg Atorvastatin Calcium (Lipitor -) 10 mg PO HS [facility] Last Admin: 04/29/19 21:26 Dose: 10 mg Chlorhexidine Gluconate (Hibiclens For Decolonization -) 1 applic TP HS [facility] Last Admin: 04/29/19 21:29 Dose: Not Given Heparin Sodium (Porcine) (Heparin -) 5,000 unit SQ BID [facility] Last Admin: 04/30/19 09:46 Dose: 5,000 unit Cefazolin Sodium/Dextrose (Ancef 2 Gm Premixed Ivpb -) 2 gm in 50 mls @ 100 mls /hr IVPB Q8H-IV [facility] Last Admin: 04/30/19 09:44 Dose: 100 mls/hr Sodium Chloride (1/2 Normal Saline) 1,000 mls @ 42 mls/hr IV ASDIR [facility] Last Admin: 04/29/19 17:51 Dose: 42 mls/hr Insulin Aspart (Novolog Vial Sliding Scale -) 1 vial SQ BIDAC [facility]; Protocol Last Admin: 04/30/19 06:09 Dose: Not Given Mupirocin (Bactroban Ointment (For Decolonization) -) 1 applic NS BID [facility] Stop: 05/01/19 21:59 Last Admin: 04/30/19 09:47 Dose: Not Given Oxycodone HCl (Roxicodone -) 5 mg PO Q6HPO [facility] Last Admin: 04/30/19 11:52 Dose: 5 mg Pantoprazole Sodium (Protonix -) 40 mg PO DAILY [facility] Last Admin: 04/30/19 09:46 Dose: 40 mg Polyethylene Glycol (Miralax (For Daily Use) -) 17 gm PO DAILY [facility] Last Admin: 04/30/19 09:52 Dose: Not Given Sertraline HCl (Zoloft -) 25 mg PO DAILY [facility] Last Admin: 04/30/19 09:46 Dose: 25 mg - Objective Vital Signs: Vital Signs Temperature 98.1 F 04/30/19 10:00 Pulse Rate 64 04/30/19 10:00 Respiratory Rate 20 04/30/19 10:00 Blood Pressure 122/57 L 04/30/19 10:00 O2 Sat by Pulse Oximetry (%) 96 04/29/19 08:35 Constitutional: Yes: No Distress, Calm Eyes: Yes: Conjunctiva Clear HENT: Yes: Atraumatic Cardiovascular: Yes: Regular Rate and Rhythm Respiratory: Yes: Regular, CTA Bilaterally Gastrointestinal: Yes: Normal Bowel Sounds, Soft, Tenderness (RLQ) Musculoskeletal: Yes: WNL Extremities: Yes: WNL Edema: No Neurological: Yes: Alert, Oriented Psychiatric: Yes: Alert, Oriented Labs: CBC, BMP 04/29/19 05:45 04/29/19 05:45 INR, PTT INR 1.13 (0.83-1.09) H 04/25/19 19:28 Problem List - Problems (1) LONG (acute kidney injury) Assessment/Plan: -BUN/Cr 23.4/0.9 -Renal on board -monitor renal function Code(s): N17.9 - ACUTE KIDNEY FAILURE, UNSPECIFIED (2) Diabetes Assessment/Plan: -BGM ACHS -ISS -HgA1c 7.6% Code(s): E11.9 - TYPE 2 DIABETES MELLITUS WITHOUT COMPLICATIONS (3) HLD (hyperlipidemia) Assessment/Plan: -Atrovastatin Code(s): E78.5 - HYPERLIPIDEMIA, UNSPECIFIED (4) HTN (hypertension) Assessment/Plan: -Amlodipine -low Na diet Code(s): I10 - ESSENTIAL (PRIMARY) HYPERTENSION (5) Hyponatremia Assessment/Plan: -resolved -Na 140 -monitor Na level Code(s): E87.1 - HYPO-OSMOLALITY AND HYPONATREMIA (6) Pyelonephritis Assessment/Plan: -ID on board -Cefazolin -no leukocytosis -afebrile -UA shows 3+ leuks, positive nitrite, 3+ blood -UC positive -Renal US reviewed Code(s): N12 - TUBULO-INTERSTITIAL NEPHRITIS, NOT SPCF ACUTE OR CHRONIC (7) Vesicovaginal fistula Assessment/Plan: -Surgery on board and recommend consultation at tertiary center for repair Code(s): N82.0 - VESICOVAGINAL FISTULA (8) Gram negative sepsis Assessment/Plan: -ID on board -initial BC positive, repeat neg -Cefazolin -no leukocytosis -afebrile Code(s): A41.50 - GRAM-NEGATIVE SEPSIS, UNSPECIFIED (9) Inguinal hernia Assessment/Plan: -surgery on board and recommend no surgical intervention at this time until sepsis improves Code(s): K40.90 - UNIL INGUINAL HERNIA, W/O OBST OR GANGR, NOT SPCF RECUR Qualifiers: Recurrence: recurrent Assessment/Plan see problem list dvt ppx
--- NOTE | 2019-04-30 14:59 | PN ---
Progress Note, Physician History of Present Illness: Pt seen and examined at bedside. She is awake and alert. She denies shortness of breath. - Current Medication List Current Medications: Active Medications Acetaminophen (Tylenol -) 650 mg PO Q6H PRN PRN Reason: FEVER Last Admin: 04/29/19 17:54 Dose: 650 mg Atorvastatin Calcium (Lipitor -) 10 mg PO HS [facility] Last Admin: 04/29/19 21:26 Dose: 10 mg Chlorhexidine Gluconate (Hibiclens For Decolonization -) 1 applic TP HS [facility] Last Admin: 04/29/19 21:29 Dose: Not Given Heparin Sodium (Porcine) (Heparin -) 5,000 unit SQ BID [facility] Last Admin: 04/30/19 09:46 Dose: 5,000 unit Cefazolin Sodium/Dextrose (Ancef 2 Gm Premixed Ivpb -) 2 gm in 50 mls @ 100 mls /hr IVPB Q8H-IV [facility] Last Admin: 04/30/19 09:44 Dose: 100 mls/hr Sodium Chloride (1/2 Normal Saline) 1,000 mls @ 42 mls/hr IV ASDIR [facility] Last Admin: 04/29/19 17:51 Dose: 42 mls/hr Insulin Aspart (Novolog Vial Sliding Scale -) 1 vial SQ BIDAC [facility]; Protocol Last Admin: 04/30/19 06:09 Dose: Not Given Mupirocin (Bactroban Ointment (For Decolonization) -) 1 applic NS BID [facility] Stop: 05/01/19 21:59 Last Admin: 04/30/19 09:47 Dose: Not Given Oxycodone HCl (Roxicodone -) 5 mg PO Q6HPO [facility] Last Admin: 04/30/19 11:52 Dose: 5 mg Pantoprazole Sodium (Protonix -) 40 mg PO DAILY [facility] Last Admin: 04/30/19 09:46 Dose: 40 mg Polyethylene Glycol (Miralax (For Daily Use) -) 17 gm PO DAILY [facility] Last Admin: 04/30/19 09:52 Dose: Not Given Sertraline HCl (Zoloft -) 25 mg PO DAILY [facility] Last Admin: 04/30/19 09:46 Dose: 25 mg - Objective Vital Signs: Vital Signs Temperature 98.1 F 04/30/19 10:00 Pulse Rate 64 04/30/19 10:00 Respiratory Rate 20 04/30/19 10:00 Blood Pressure 122/57 L 04/30/19 10:00 O2 Sat by Pulse Oximetry (%) 96 04/29/19 08:35 Constitutional: Yes: Calm Eyes: Yes: Conjunctiva Clear HENT: Yes: Atraumatic Neck: Yes: Supple Cardiovascular: Yes: S1, S2 Gastrointestinal: Yes: WNL Musculoskeletal: Yes: WNL Edema: No Neurological: Yes: Oriented Psychiatric: Yes: Oriented Labs: CBC, BMP 04/29/19 05:45 04/29/19 05:45 INR, PTT INR 1.13 (0.83-1.09) H 04/25/19 19:28 Problem List - Problems (1) LONG (acute kidney injury) Code(s): N17.9 - ACUTE KIDNEY FAILURE, UNSPECIFIED (2) Sepsis Code(s): A41.9 - SEPSIS, UNSPECIFIED ORGANISM Assessment/Plan Current Medications Generic Name Dose Route Start Last Admin Trade Name Freq PRN Reason Stop Dose Admin Acetaminophen 650 mg 04/29/19 14:29 04/29/19 17:54 Tylenol - PO 650 mg Q6H PRN Administration FEVER Atorvastatin Calcium 10 mg 04/29/19 22:00 04/29/19 21:26 Lipitor - PO 10 mg HS [facility] Administration Chlorhexidine Gluconate 1 applic 04/29/19 22:00 04/29/19 21:29 Hibiclens For Decolonization - TP Not Given HS [facility] Heparin Sodium (Porcine) 5,000 unit 04/29/19 22:00 04/30/19 09:46 Heparin - SQ 5,000 unit BID [facility] Administration Cefazolin Sodium/Dextrose 2 gm in 50 mls @ 100 mls/hr 04/29/19 18:00 09:44 Ancef 2 Gm Premixed Ivpb - IVPB 100 mls/hr Q8H-IV [facility] Administration Sodium Chloride 1,000 mls @ 42 mls/hr 04/29/19 14:33 04/29/19 17:51 1/2 Normal Saline IV 42 mls/hr ASDIR [facility] Administration Insulin Aspart 1 vial 04/29/19 16:30 04/30/19 06:09 Novolog Vial Sliding Scale - SQ Not Given BIDAC [facility] Protocol Mupirocin 1 applic 04/29/19 22:00 04/30/19 09:47 Bactroban Ointment (For Decolonization) - NS 05/01/19 21:59 Not Given BID [facility] Oxycodone HCl 5 mg 04/29/19 20:00 04/30/19 11:52 Roxicodone - PO 5 mg Q6HPO [facility] Administration Pantoprazole Sodium 40 mg 04/30/19 10:00 04/30/19 09:46 Protonix - PO 40 mg DAILY [facility] Administration Polyethylene Glycol 17 gm 04/30/19 10:00 04/30/19 09:52 Miralax (For Daily Use) - PO Not Given DAILY [facility] Sertraline HCl 25 mg 04/30/19 10:00 04/30/19 09:46 Zoloft - PO 25 mg DAILY [facility] Administration Impression 1. LONG 2. sepsis 3. UTI 4. hypotension 5. anemia 6. vesiculovaginal fistula 7. metabolic acidosis Plan - can stop fluids - pt tolerating diet - pt out of ICU - monitor lytes and renal function - LONG likely from sepsis and pre-renal disease - will follow PRN
[2019-04-30] MEDS ORDERED: INSULIN (NOVOLOG) ASPART 100 UNITS/ML 10ML VIAL ONE (16:48)
--- NOTE | 2019-04-30 17:00 | PN ---
Progress Note (short form) - Note Progress Note: fevers and chills resolved has chronic abdominal pain Vital Signs Period Temp Pulse Resp BP Sys/Alvarez Pulse Ox Last 24 Hr 98.1 F-99.2 F 64-80 20-20 111-128/49-77 cor-rrr lungs clear abd soft,mild pelvic discomfort to palpation ext no edema CBC, BMP 04/29/19 05:45 04/29/19 05:45 Microbiology 04/27/19 16:20 Blood - Peripheral Venous Blood Culture - Preliminary NO GROWTH OBTAINED AFTER 72 HOURS, INCUBATION TO CONTINUE FOR 2 DAYS. 04/27/19 16:00 Blood - Peripheral Venous Blood Culture - Preliminary NO GROWTH OBTAINED AFTER 72 HOURS, INCUBATION TO CONTINUE FOR 2 DAYS. 04/25/19 20:22 Urine - Urine Clean Catch Urine Culture - Final Escherichia Coli Enterococcus Faecalis 04/25/19 19:28 Blood - Peripheral Venous Blood Culture - Final Escherichia Coli 04/25/19 19:32 Blood - Peripheral Venous Blood Culture - Preliminary Lactose Fermenting Neg Bacilli a/p gram negative sepsis secondary to UTI/pyelonephritis-ecoli bacteremia- fever curve resolving history of vesicovagianal fistula day #45antibioitcs- cefazolin to continue fevers resolved acidosis improving continue cefazolin Problem List - Problems (1) Gram negative sepsis Code(s): A41.50 - GRAM-NEGATIVE SEPSIS, UNSPECIFIED (2) Pyelonephritis Code(s): N12 - TUBULO-INTERSTITIAL NEPHRITIS, NOT SPCF ACUTE OR CHRONIC (3) LONG (acute kidney injury) Code(s): N17.9 - ACUTE KIDNEY FAILURE, UNSPECIFIED (4) Vesicovaginal fistula Code(s): N82.0 - VESICOVAGINAL FISTULA
[2019-04-30] MEDS: ATORVASTATIN CA 10 MG TABLET (FP) PO SCH (22:14)
[2019-04-30] MEDS: CHLORHEXIDINE GLUCONATE 4% CLEANSER FOR DECOLONIZATION TP SCH (22:15)
[2019-05-01] MEDS: oxyCODONE HCL 5 MG TABLET PO SCH ×5 (00:27→23:32)
[2019-05-01] MEDS: ACETAMINOPHEN 325 MG TABLET (FP) PO PRN ×2 (00:30→22:02)
[2019-05-01] MEDS: CEFAZOLIN 2 GM/D5W 2 GM/50 ML ML IVPB SCH ×3 (01:29→17:42)
[2019-05-01] MEDS: INSULIN SLIDING SCALE (NOVOLOG) 1 VIAL SQ SCH ×2 (06:06→17:17)
--- NOTE | 2019-05-01 08:28 | CONSULT ---
Consult - text type - Consultation Consultation Note: CC: vesicovaginal fistula s/p urosepsis hpi: Patient is now stabilized with ongoing pelvic pain. Patient with ongoing incontinence. Patient is under the care of her own urologist. PE vss;afeb PE without change imp reported vesicovaginal fistula plan patient is under the care of her own urologist who has evaluated her. Patient should follow-up with her urologist as an outpatient
[2019-05-01 08:53] LABS: HEMATOCRIT 23.1 % (32.4-45.2); MCH 30.7 pg (25.7-33.7); MCHC 34.8 g/dl (32.0-36.0); MEAN CELL VOLUME 88.1 fl (80-96); MEAN PLT VOLUME 8.3 fl (7.5-11.1); PLATELET COUNT 194 K/MM3 (134-434); RBC 2.62 M/mm3 (3.60-5.2); RDW 12.6 % (11.6-15.6); WHITE BLOOD COUNT 6.2 K/mm3 (4.0-10.0)
[2019-05-01 09:37] LABS: ALBUMIN 2.1 g/dl (3.4-5.0); BILIRUBIN,TOTAL 0.3 mg/dL (0.2-1); BLOOD UREA NITROGEN 9.4 mg/dL (7-18); CALCIUM 7.9 mg/dL (8.5-10.1); CREATININE 0.8 mg/dL (0.55-1.3); TOT PROT 5.3 g/dl (6.4-8.2)
[2019-05-01] MEDS: PANTOPRAZOLE 40 MG TABLET (FP) PO SCH (10:10)
[2019-05-01] MEDS: POLYETHYLENE GLYCOL 3350 119 GM BTL PO SCH (10:10)
[2019-05-01] MEDS: SERTRALINE HCL 25 MG TABLET (FP) PO SCH (10:10)
[2019-05-01] MEDS: HEPARIN NA (PORCINE) 5,000 UNITS/ML 1ML VIAL SQ SCH ×2 (10:10→21:34)
[2019-05-01] MEDS: MUPIROCIN 2% TOPICAL OINTMENT FOR DECOLONIZATION NS SCH (10:11)
[2019-05-01] MEDS ORDERED: POTASSIUM CHLORIDE TABS 20 MEQ TABLET.ER (FP) PO ONE (10:57)
--- NOTE | 2019-05-01 10:57 | PN ---
Progress Note, Physician Chief Complaint: AWAKE ALERT FEELING BETTER - Current Medication List Current Medications: Active Medications Acetaminophen (Tylenol -) 650 mg PO Q6H PRN PRN Reason: FEVER Last Admin: 05/01/19 00:30 Dose: 650 mg Atorvastatin Calcium (Lipitor -) 10 mg PO HS [facility] Last Admin: 04/30/19 22:14 Dose: 10 mg Chlorhexidine Gluconate (Hibiclens For Decolonization -) 1 applic TP HS [facility] Last Admin: 04/30/19 22:15 Dose: Not Given Heparin Sodium (Porcine) (Heparin -) 5,000 unit SQ BID [facility] Last Admin: 05/01/19 10:10 Dose: 5,000 unit Cefazolin Sodium/Dextrose (Ancef 2 Gm Premixed Ivpb -) 2 gm in 50 mls @ 100 mls /hr IVPB Q8H-IV [facility] Last Admin: 05/01/19 10:11 Dose: 100 mls/hr Insulin Aspart (Novolog Vial Sliding Scale -) 1 vial SQ BIDAC [facility]; Protocol Last Admin: 05/01/19 06:06 Dose: Not Given Mupirocin (Bactroban Ointment (For Decolonization) -) 1 applic NS BID [facility] Stop: 05/01/19 21:59 Last Admin: 05/01/19 10:11 Dose: Not Given Oxycodone HCl (Roxicodone -) 5 mg PO Q6HPO [facility] Last Admin: 05/01/19 05:24 Dose: 5 mg Pantoprazole Sodium (Protonix -) 40 mg PO DAILY [facility] Last Admin: 05/01/19 10:10 Dose: 40 mg Polyethylene Glycol (Miralax (For Daily Use) -) 17 gm PO DAILY [facility] Last Admin: 05/01/19 10:10 Dose: Not Given Sertraline HCl (Zoloft -) 25 mg PO DAILY [facility] Last Admin: 05/01/19 10:10 Dose: 25 mg - Objective Vital Signs: Vital Signs Temperature 98.5 F 05/01/19 10:00 Pulse Rate 73 05/01/19 10:00 Respiratory Rate 20 05/01/19 10:00 Blood Pressure 112/61 05/01/19 10:00 O2 Sat by Pulse Oximetry (%) 96 04/29/19 08:35 Constitutional: Yes: Mild Distress Cardiovascular: Yes: Regular Rate and Rhythm Respiratory: Yes: WNL Gastrointestinal: Yes: Soft, Tenderness Genitourinary: Yes: Other Musculoskeletal: Yes: Muscle Pain Integumentary: Yes: WNL Wound/Incision: Yes: Clean/Dry Neurological: Yes: WNL ...Motor Strength: LLE, RLE Psychiatric: Yes: Other Labs: CBC, BMP 05/01/19 08:10 05/01/19 08:10 INR, PTT INR 1.13 (0.83-1.09) H 04/25/19 19:28 Problem List - Problems (1) Constipation Code(s): K59.00 - CONSTIPATION, UNSPECIFIED (2) Depression Code(s): F32.9 - MAJOR DEPRESSIVE DISORDER, SINGLE EPISODE, UNSPECIFIED (3) Gram negative sepsis Code(s): A41.50 - GRAM-NEGATIVE SEPSIS, UNSPECIFIED (4) HLD (hyperlipidemia) Code(s): E78.5 - HYPERLIPIDEMIA, UNSPECIFIED (5) HTN (hypertension) Code(s): I10 - ESSENTIAL (PRIMARY) HYPERTENSION (6) Hematuria Code(s): R31.9 - HEMATURIA, UNSPECIFIED (7) Pelvic fluid collection Code(s): R18.8 - OTHER ASCITES (8) Vesicovaginal fistula Code(s): N82.0 - VESICOVAGINAL FISTULA Assessment/Plan IV ABX PER ID SEPSIS RESOLVING BP STABLE START REGULAR DIET PAIN CONTROL OOB TO CHAIR DVT PROPHYLAXIS WILL CALL [facility] FOR TRANSFER DEPARTMENT IF THEY CAN OFFER A SURGICAL SOLUTION FOR HER VESICOVAGINAL FISTULA.
--- NOTE | 2019-05-01 11:50 | PN ---
Progress Note (short form) - Note Progress Note: Feels overall better. No CP or SOB. No acute events overnight. Intake & Output 04/28/19 04/29/19 04/30/19 05/01/19 23:59 23:59 23:59 23:59 Intake Total 2162 2398 1451 720 Balance 2162 2398 1451 720 Last Vital Signs Temp Pulse Resp BP Pulse Ox 98.5 F 73 20 112/61 94 L 05/01/19 10:00 05/01/19 10:00 05/01/19 10:00 05/01/19 10:00 05/01/19 09:00 Active Medications Acetaminophen (Tylenol -) 650 mg PO Q6H PRN PRN Reason: FEVER Last Admin: 05/01/19 00:30 Dose: 650 mg Atorvastatin Calcium (Lipitor -) 10 mg PO HS [facility] Last Admin: 04/30/19 22:14 Dose: 10 mg Chlorhexidine Gluconate (Hibiclens For Decolonization -) 1 applic TP HS [facility] Last Admin: 04/30/19 22:15 Dose: Not Given Heparin Sodium (Porcine) (Heparin -) 5,000 unit SQ BID [facility] Last Admin: 05/01/19 10:10 Dose: 5,000 unit Cefazolin Sodium/Dextrose (Ancef 2 Gm Premixed Ivpb -) 2 gm in 50 mls @ 100 mls /hr IVPB Q8H-IV [facility] Last Admin: 05/01/19 10:11 Dose: 100 mls/hr Insulin Aspart (Novolog Vial Sliding Scale -) 1 vial SQ BIDAC [facility]; Protocol Last Admin: 05/01/19 06:06 Dose: Not Given Mupirocin (Bactroban Ointment (For Decolonization) -) 1 applic NS BID [facility] Stop: 05/01/19 21:59 Last Admin: 05/01/19 10:11 Dose: Not Given Oxycodone HCl (Roxicodone -) 5 mg PO Q6HPO [facility] Last Admin: 05/01/19 05:24 Dose: 5 mg Pantoprazole Sodium (Protonix -) 40 mg PO DAILY [facility] Last Admin: 05/01/19 10:10 Dose: 40 mg Polyethylene Glycol (Miralax (For Daily Use) -) 17 gm PO DAILY [facility] Last Admin: 05/01/19 10:10 Dose: Not Given Potassium Chloride (K-Dur -) 10 meq PO DAILY [facility] Sertraline HCl (Zoloft -) 25 mg PO DAILY [facility] Last Admin: 05/01/19 10:10 Dose: 25 mg Gen: NAD at rest Heart: RRR Lung: decreased breath sounds at the bases Abd: soft, nontender Ext: no edema Laboratory Results - last 24 hr 04/30/19 05/01/19 05/01/19 16:27 06:05 08:10 WBC 6.2 RBC 2.62 L Hgb 8.0 L Hct 23.1 L MCV 88.1 MCH 30.7 MCHC 34.8 RDW 12.6 Plt Count 194 D MPV 8.3 Sodium Potassium Chloride Carbon Dioxide Anion Gap BUN Creatinine Est GFR (CKD-EPI)AfAm Est GFR (CKD-EPI)NonAf POC Glucometer 169 135 Random Glucose Calcium Total Bilirubin AST ALT Alkaline Phosphatase Total Protein Albumin 05/01/19 08:10 WBC RBC Hgb Hct MCV MCH MCHC RDW Plt Count MPV Sodium 139 Potassium 3.0 L Chloride 105 Carbon Dioxide 25 Anion Gap 9 BUN 9.4 Creatinine 0.8 Est GFR (CKD-EPI)AfAm 89.67 Est GFR (CKD-EPI)NonAf 77.37 POC Glucometer Random Glucose 130 H Calcium 7.9 L Total Bilirubin 0.3 AST 33 ALT 18 Alkaline Phosphatase 94 Total Protein 5.3 L Albumin 2.1 L ASSESSMENT AND PLAN: UTI Gram Negative Bacteremia Septic Shock Acute Kidney Injury improving Lactic Acidosis resolved h/o Vesiculovaginal Fistula HTN DM Hyperlipidemia Anemia - ABX per ID - O2 to keep SpO2 >90% - PO as tolerated - DVT prophylaxis Dr Guerrero
[2019-05-01] MEDS: CHLORHEXIDINE GLUCONATE 4% CLEANSER FOR DECOLONIZATION TP SCH (21:33)
[2019-05-01] MEDS: ATORVASTATIN CA 10 MG TABLET (FP) PO SCH (21:34)
[2019-05-02] MEDS: CEFAZOLIN 2 GM/D5W 2 GM/50 ML ML IVPB SCH ×3 (01:28→17:48)
[2019-05-02] MEDS: oxyCODONE HCL 5 MG TABLET PO SCH ×3 (05:24→17:48)
[2019-05-02] MEDS: INSULIN SLIDING SCALE (NOVOLOG) 1 VIAL SQ SCH ×2 (06:16→17:15)
[2019-05-02 07:55] LABS: HEMATOCRIT 22.8 % (32.4-45.2); HEMOGLOBIN 7.9 GM/dL (10.7-15.3); MCH 30.8 pg (25.7-33.7); MCHC 34.9 g/dl (32.0-36.0); MEAN CELL VOLUME 88.2 fl (80-96); MEAN PLT VOLUME 8.2 fl (7.5-11.1); PLATELET COUNT 210 K/MM3 (134-434); RBC 2.58 M/mm3 (3.60-5.2); RDW 12.4 % (11.6-15.6); WHITE BLOOD COUNT 5.5 K/mm3 (4.0-10.0)
[2019-05-02 07:56] LABS: BLOOD UREA NITROGEN 6.4 mg/dL (7-18); CALCIUM 7.9 mg/dL (8.5-10.1); CREATININE 0.7 mg/dL (0.55-1.3); MAGNESIUM 1.5 mg/dL (1.8-2.4); POTASSIUM 3.3 mmol/L (3.5-5.1)
[2019-05-02] MEDS: SERTRALINE HCL 25 MG TABLET (FP) PO SCH (10:32)
[2019-05-02] MEDS: HEPARIN NA (PORCINE) 5,000 UNITS/ML 1ML VIAL SQ SCH ×2 (10:32→21:16)
[2019-05-02] MEDS: POTASSIUM CHLORIDE TABS 10 MEQ TABLET.ER (FP) PO SCH (10:32)
[2019-05-02] MEDS: PANTOPRAZOLE 40 MG TABLET (FP) PO SCH (10:32)
[2019-05-02] MEDS: POLYETHYLENE GLYCOL 3350 119 GM BTL PO SCH (10:32)
[2019-05-02] MEDS ORDERED: IRON SUCROSE INJECTION 300 MG in SODIUM CHLORIDE 235 ML IVPB ONE (11:35)
[2019-05-02] MEDS ORDERED: POTASSIUM CHLORIDE TABS 20 MEQ TABLET.ER (FP) PO ONE (11:36)
--- NOTE | 2019-05-02 11:36 | PN ---
Progress Note, Physician Chief Complaint: AWAKE ALERT REPORTS FEELING WEAK TODAY - Current Medication List Current Medications: Active Medications Acetaminophen (Tylenol -) 650 mg PO Q6H PRN PRN Reason: FEVER Last Admin: 05/01/19 22:02 Dose: 650 mg Atorvastatin Calcium (Lipitor -) 10 mg PO HS [facility] Last Admin: 05/01/19 21:34 Dose: 10 mg Chlorhexidine Gluconate (Hibiclens For Decolonization -) 1 applic TP HS [facility] Last Admin: 05/01/19 21:33 Dose: Not Given Heparin Sodium (Porcine) (Heparin -) 5,000 unit SQ BID [facility] Last Admin: 05/02/19 10:32 Dose: 5,000 unit Cefazolin Sodium/Dextrose (Ancef 2 Gm Premixed Ivpb -) 2 gm in 50 mls @ 100 mls /hr IVPB Q8H-IV [facility] Last Admin: 05/02/19 10:31 Dose: 100 mls/hr Iron Sucrose 300 mg/ Sodium (Chloride) 250 mls @ 250 mls/hr IVPB ONCE ONE Stop: 05/02/19 12:34 Insulin Aspart (Novolog Vial Sliding Scale -) 1 vial SQ BIDAC [facility]; Protocol Last Admin: 05/02/19 06:16 Dose: Not Given Oxycodone HCl (Roxicodone -) 5 mg PO Q6HPO [facility] Last Admin: 05/02/19 05:24 Dose: 5 mg Pantoprazole Sodium (Protonix -) 40 mg PO DAILY [facility] Last Admin: 05/02/19 10:32 Dose: 40 mg Polyethylene Glycol (Miralax (For Daily Use) -) 17 gm PO DAILY [facility] Last Admin: 05/02/19 10:32 Dose: Not Given Potassium Chloride (K-Dur -) 10 meq PO DAILY [facility] Last Admin: 05/02/19 10:32 Dose: 10 meq Sertraline HCl (Zoloft -) 25 mg PO DAILY [facility] Last Admin: 05/02/19 10:32 Dose: 25 mg - Objective Vital Signs: Vital Signs Temperature 99.6 F 05/01/19 22:00 Pulse Rate 63 05/01/19 22:00 Respiratory Rate 20 05/01/19 22:00 Blood Pressure 136/67 05/01/19 22:00 O2 Sat by Pulse Oximetry (%) 98 05/01/19 21:00 Constitutional: Yes: Mild Distress Cardiovascular: Yes: Regular Rate and Rhythm Respiratory: Yes: WNL Gastrointestinal: Yes: Tenderness (RLQ TENDERNESS) Genitourinary: Yes: Other Musculoskeletal: Yes: Muscle Weakness Edema: No Neurological: Yes: Pre-Existing Deficit Psychiatric: Yes: Other Labs: CBC, BMP 05/02/19 06:55 05/02/19 06:55 INR, PTT INR 1.13 (0.83-1.09) H 04/25/19 19:28 Problem List - Problems (1) Constipation Code(s): K59.00 - CONSTIPATION, UNSPECIFIED (2) Depression Code(s): F32.9 - MAJOR DEPRESSIVE DISORDER, SINGLE EPISODE, UNSPECIFIED (3) Gram negative sepsis Code(s): A41.50 - GRAM-NEGATIVE SEPSIS, UNSPECIFIED (4) HLD (hyperlipidemia) Code(s): E78.5 - HYPERLIPIDEMIA, UNSPECIFIED (5) HTN (hypertension) Code(s): I10 - ESSENTIAL (PRIMARY) HYPERTENSION (6) Hematuria Code(s): R31.9 - HEMATURIA, UNSPECIFIED (7) Pelvic fluid collection Code(s): R18.8 - OTHER ASCITES (8) Vesicovaginal fistula Code(s): N82.0 - VESICOVAGINAL FISTULA Assessment/Plan IV ABX PER ID SEPSIS RESOLVING ANEMIA WORSE CHECK IRON LEVELS IV IRON SUCROSE GIVEN 300MG TRANSFUSE PRBS IF NEEDED IN A.M. BP STABLE START REGULAR DIET PAIN CONTROL OOB TO CHAIR DVT PROPHYLAXIS DR BAER WILL CALL [facility] FOR TRANSFER DEPARTMENT IF THEY CAN OFFER A SURGICAL SOLUTION FOR HER VESICOVAGINAL FISTULA.
--- NOTE | 2019-05-02 11:58 | PN ---
Progress Note (short form) - Note Progress Note: Feels overall better. No CP or SOB. No acute events overnight. Intake & Output 04/29/19 04/30/19 05/01/19 05/02/19 23:59 23:59 23:59 23:59 Intake Total 2398 1451 1340 760 Balance 2398 1451 1340 760 Last Vital Signs Temp Pulse Resp BP Pulse Ox 99.6 F 63 20 136/67 98 05/01/19 22:00 05/01/19 22:00 05/01/19 22:00 05/01/19 22:00 05/01/19 21:00 Active Medications Acetaminophen (Tylenol -) 650 mg PO Q6H PRN PRN Reason: FEVER Last Admin: 05/01/19 22:02 Dose: 650 mg Atorvastatin Calcium (Lipitor -) 10 mg PO HS [facility] Last Admin: 05/01/19 21:34 Dose: 10 mg Chlorhexidine Gluconate (Hibiclens For Decolonization -) 1 applic TP HS [facility] Last Admin: 05/01/19 21:33 Dose: Not Given Heparin Sodium (Porcine) (Heparin -) 5,000 unit SQ BID [facility] Last Admin: 05/02/19 10:32 Dose: 5,000 unit Cefazolin Sodium/Dextrose (Ancef 2 Gm Premixed Ivpb -) 2 gm in 50 mls @ 100 mls /hr IVPB Q8H-IV [facility] Last Admin: 05/02/19 10:31 Dose: 100 mls/hr Iron Sucrose 300 mg/ Sodium (Chloride) 250 mls @ 250 mls/hr IVPB ONCE ONE Stop: 05/02/19 12:34 Insulin Aspart (Novolog Vial Sliding Scale -) 1 vial SQ BIDAC [facility]; Protocol Last Admin: 05/02/19 06:16 Dose: Not Given Oxycodone HCl (Roxicodone -) 5 mg PO Q6HPO [facility] Last Admin: 05/02/19 05:24 Dose: 5 mg Pantoprazole Sodium (Protonix -) 40 mg PO DAILY [facility] Last Admin: 05/02/19 10:32 Dose: 40 mg Polyethylene Glycol (Miralax (For Daily Use) -) 17 gm PO DAILY [facility] Last Admin: 05/02/19 10:32 Dose: Not Given Potassium Chloride (K-Dur -) 10 meq PO DAILY [facility] Last Admin: 05/02/19 10:32 Dose: 10 meq Sertraline HCl (Zoloft -) 25 mg PO DAILY [facility] Last Admin: 05/02/19 10:32 Dose: 25 mg Gen: NAD at rest Heart: RRR Lung: decreased breath sounds at the bases Abd: soft, nontender Ext: no edema Laboratory Results - last 24 hr 05/01/19 05/02/19 05/02/19 17:15 06:11 06:55 WBC 5.5 RBC 2.58 L Hgb 7.9 L Hct 22.8 L MCV 88.2 MCH 30.8 MCHC 34.9 RDW 12.4 Plt Count 210 MPV 8.2 Sodium Potassium Chloride Carbon Dioxide Anion Gap BUN Creatinine Est GFR (CKD-EPI)AfAm Est GFR (CKD-EPI)NonAf POC Glucometer 173 133 Random Glucose Calcium Magnesium 05/02/19 06:55 WBC RBC Hgb Hct MCV MCH MCHC RDW Plt Count MPV Sodium 141 Potassium 3.3 L Chloride 107 Carbon Dioxide 26 Anion Gap 8 BUN 6.4 L Creatinine 0.7 Est GFR (CKD-EPI)AfAm 105.38 Est GFR (CKD-EPI)NonAf 90.92 POC Glucometer Random Glucose 133 H Calcium 7.9 L Magnesium 1.5 L ASSESSMENT AND PLAN: UTI Gram Negative Bacteremia Septic Shock Acute Kidney Injury improving Lactic Acidosis resolved h/o Vesiculovaginal Fistula HTN DM Hyperlipidemia Anemia - ABX per ID - O2 to keep SpO2 >90% - PO as tolerated - DVT prophylaxis Dr Guerrero
[2019-05-02] MEDS: ATORVASTATIN CA 10 MG TABLET (FP) PO SCH (21:17)
[2019-05-02] MEDS: CHLORHEXIDINE GLUCONATE 4% CLEANSER FOR DECOLONIZATION TP SCH (22:05)
[2019-05-03] MEDS: oxyCODONE HCL 5 MG TABLET PO SCH ×2 (00:33→06:28)
[2019-05-03] MEDS: ACETAMINOPHEN 325 MG TABLET (FP) PO PRN (00:38)
--- NOTE | 2019-05-03 01:09 | HOSP ---
Subjective - Review of Symptoms Events since last encounter: Hospitalist Encounter Notified by the RN, that the patient reports having chest pressure and is anxious. EKG was done was asked to assess pt and EKG tracing. Arrived to bedside, patient is awake, alert and oriented, reports feeling chest pressure, SOB and anxious- secondary to pain and concerns about her health. PE performed see EMR. Reassurance provided. Assessment: 63 year old female with PMH HTN, HLD, NIDDM, vesiculovaginal fistula, recurrent multidrug resistant UTIs. Presented to the ED for fever, abdominal pain, and dysuria. Admitted for Sepsis secondary to UTI Plan: Troponin stat Pulmonary: Yes: Dyspnea Cardiovascular: Yes: Chest Pain Other Systems: Psychological: Anxious Physical Examination Vital Signs: Vital Signs Temperature 97.9 F 05/02/19 21:55 Pulse Rate 76 05/02/19 21:55 Respiratory Rate 20 05/02/19 21:55 Blood Pressure 136/72 05/02/19 21:55 O2 Sat by Pulse Oximetry (%) 98 05/01/19 21:00 Constitutional: Yes: Anxious, Pallor Eyes: Yes: Conjunctiva Clear (pale), EOM Intact, PERRL HENT: Yes: WNL, Atraumatic, Normocephalic Neck: Yes: WNL, Supple, Trachea Midline Cardiovascular: Yes: WNL, Regular Rate and Rhythm, S1, S2 Respiratory: Yes: WNL, Regular, CTA Bilaterally, On Nasal O2 Gastrointestinal: Yes: WNL, Normal Bowel Sounds, Soft. No: Tenderness, Tenderness, Epigastrium Extremities: Yes: WNL Edema: No Peripheral Pulses WNL: Yes Neurological: Yes: WNL, Alert, Oriented, Cran Nerves II-XII Intact Psychiatric: Yes: WNL, Alert, Oriented Labs: CBC, BMP 05/02/19 06:55 05/02/19 06:55 Laboratory Results - last 24 hr 05/02/19 05/02/19 05/02/19 06:11 06:55 06:55 WBC 5.5 RBC 2.58 L Hgb 7.9 L Hct 22.8 L MCV 88.2 MCH 30.8 MCHC 34.9 RDW 12.4 Plt Count 210 MPV 8.2 Sodium 141 Potassium 3.3 L Chloride 107 Carbon Dioxide 26 Anion Gap 8 BUN 6.4 L Creatinine 0.7 Est GFR (CKD-EPI)AfAm 105.38 Est GFR (CKD-EPI)NonAf 90.92 POC Glucometer 133 Random Glucose 133 H Calcium 7.9 L Magnesium 1.5 L Iron 34 L TIBC 218 L Iron Saturation 15 L Unsaturated IBC 184 L Troponin I 05/02/19 05/03/19 16:40 01:20 WBC RBC Hgb Hct MCV MCH MCHC RDW Plt Count MPV Sodium Potassium Chloride Carbon Dioxide Anion Gap BUN Creatinine Est GFR (CKD-EPI)AfAm Est GFR (CKD-EPI)NonAf POC Glucometer 162 Random Glucose Calcium Magnesium Iron TIBC Iron Saturation Unsaturated IBC Troponin I < 0.02 Intake & Output 04/30/19 05/01/19 05/02/19 05/03/19 23:59 23:59 23:59 23:59 Intake Total 1451 1340 1740 Balance 1451 1340 1740 Current Medications Generic Name Dose Route Start Last Admin Trade Name Freq PRN Reason Stop Dose Admin Acetaminophen 650 mg 04/29/19 14:29 05/03/19 00:38 Tylenol - PO 650 mg Q6H PRN Administration FEVER Atorvastatin Calcium 10 mg 04/29/19 22:00 05/02/19 21:17 Lipitor - PO 10 mg HS [facility] Administration Chlorhexidine Gluconate 1 applic 04/29/19 22:00 05/01/19 21:33 Hibiclens For Decolonization - TP Not Given HS [facility] Heparin Sodium (Porcine) 5,000 unit 04/29/19 22:00 05/02/19 21:16 Heparin - SQ 5,000 unit BID [facility] Administration Cefazolin Sodium/Dextrose 2 gm in 50 mls @ 100 mls/hr 04/29/19 18:00 01:50 Ancef 2 Gm Premixed Ivpb - IVPB 100 mls/hr Q8H-IV [facility] Administration Insulin Aspart 1 vial 04/29/19 16:30 05/02/19 17:15 Novolog Vial Sliding Scale - SQ 2 units BIDAC [facility] Administration Protocol Oxycodone HCl 5 mg 04/29/19 20:00 05/03/19 00:33 Roxicodone - PO 5 mg Q6HPO [facility] Administration Pantoprazole Sodium 40 mg 04/30/19 10:00 05/02/19 10:32 Protonix - PO 40 mg DAILY [facility] Administration Polyethylene Glycol 17 gm 04/30/19 10:00 05/02/19 10:32 Miralax (For Daily Use) - PO Not Given DAILY [facility] Potassium Chloride 10 meq 05/02/19 10:00 05/02/19 10:32 K-Dur - PO 10 meq DAILY [facility] Administration Sertraline HCl 25 mg 04/30/19 10:00 05/02/19 10:32 Zoloft - PO 25 mg DAILY [facility] Administration Hospitalist Encounter Outcome: EKG reviewed- NSR, LAD prolonged QT- QT/QTc 448/523 Troponin I- < 0.02 Patient reports feeling better, decreased chest pressure, breathing improved on O2, less anxious after receiving her pain medications. Recommendations/Interventions: Avoid Prolonged QT medications
[2019-05-03] MEDS: CEFAZOLIN 2 GM/D5W 2 GM/50 ML ML IVPB SCH ×3 (01:50→17:07)
[2019-05-03] MEDS: INSULIN SLIDING SCALE (NOVOLOG) 1 VIAL SQ SCH ×2 (06:29→16:59)
[2019-05-03 08:32] LABS: HEMATOCRIT 23.5 % (32.4-45.2); HEMOGLOBIN 8.1 GM/dL (10.7-15.3); MCH 30.7 pg (25.7-33.7); MCHC 34.5 g/dl (32.0-36.0); MEAN PLT VOLUME 8.5 fl (7.5-11.1); PLATELET COUNT 231 K/MM3 (134-434); RBC 2.64 M/mm3 (3.60-5.2); RDW 12.7 % (11.6-15.6)
[2019-05-03 08:37] LABS: BLOOD UREA NITROGEN 5.6 mg/dL (7-18); CALCIUM 8.1 mg/dL (8.5-10.1); CREATININE 0.8 mg/dL (0.55-1.3); MAGNESIUM 1.5 mg/dL (1.8-2.4); POTASSIUM 3.1 mmol/L (3.5-5.1)
[2019-05-03] MEDS ORDERED: POTASSIUM CHLORIDE TABS 20 MEQ TABLET.ER (FP) PO ONE (09:28)
[2019-05-03] MEDS ORDERED: MAGNESIUM SULF 50% (8.12 MEQ/2 ML-1 GM VIAL) IVPB ONE (09:29)
[2019-05-03] MEDS: SERTRALINE HCL 25 MG TABLET (FP) PO SCH (10:19)
[2019-05-03] MEDS: PANTOPRAZOLE 40 MG TABLET (FP) PO SCH (10:19)
[2019-05-03] MEDS: POTASSIUM CHLORIDE TABS 10 MEQ TABLET.ER (FP) PO SCH (10:19)
[2019-05-03] MEDS: MAGNESIUM OXIDE 400 MG TABLET (FP) PO SCH ×2 (10:19→22:00)
[2019-05-03] MEDS: HEPARIN NA (PORCINE) 5,000 UNITS/ML 1ML VIAL SQ SCH ×2 (10:20→21:59)
[2019-05-03] MEDS ORDERED: oxyCODONE HCL 5 MG TABLET PO SCH (10:27)
[2019-05-03] MEDS ORDERED: oxyCODONE HCL 5 MG TABLET PO ONE (10:27)
--- NOTE | 2019-05-03 10:31 | PN ---
Progress Note (short form) - Note Progress Note: CP overnight, non-cardiac. Reports that she normally takes 10mg of Oxycodone at home for her pain. SOB felt better after the extra pain meds last night. Intake & Output 04/30/19 05/01/19 05/02/19 05/03/19 23:59 23:59 23:59 23:59 Intake Total 1451 1340 1740 Balance 1451 1340 1740 Last Vital Signs Temp Pulse Resp BP Pulse Ox 98 F 57 L 20 130/55 L 98 05/03/19 00:30 05/03/19 05:00 05/02/19 21:55 05/03/19 05:00 05/01/19 21:00 Active Medications Acetaminophen (Tylenol -) 650 mg PO Q6H PRN PRN Reason: FEVER Last Admin: 05/03/19 00:38 Dose: 650 mg Atorvastatin Calcium (Lipitor -) 10 mg PO HS [facility] Last Admin: 05/02/19 21:17 Dose: 10 mg Chlorhexidine Gluconate (Hibiclens For Decolonization -) 1 applic TP HS [facility] Last Admin: 05/02/19 22:05 Dose: Not Given Heparin Sodium (Porcine) (Heparin -) 5,000 unit SQ BID [facility] Last Admin: 05/02/19 21:16 Dose: 5,000 unit Cefazolin Sodium/Dextrose (Ancef 2 Gm Premixed Ivpb -) 2 gm in 50 mls @ 100 mls /hr IVPB Q8H-IV [facility] Last Admin: 05/03/19 01:50 Dose: 100 mls/hr Insulin Aspart (Novolog Vial Sliding Scale -) 1 vial SQ BIDAC [facility]; Protocol Last Admin: 05/03/19 06:29 Dose: 2 units Magnesium Oxide (Mag-Ox -) 400 mg PO BID [facility] Oxycodone HCl (Roxicodone -) 10 mg PO Q6HPO [facility] Oxycodone HCl (Roxicodone -) 5 mg PO ONCE ONE Stop: 05/03/19 10:28 Pantoprazole Sodium (Protonix -) 40 mg PO DAILY [facility] Last Admin: 05/02/19 10:32 Dose: 40 mg Polyethylene Glycol (Miralax (For Daily Use) -) 17 gm PO DAILY [facility] Last Admin: 05/02/19 10:32 Dose: Not Given Potassium Chloride (K-Dur -) 10 meq PO DAILY [facility] Last Admin: 05/02/19 10:32 Dose: 10 meq Sertraline HCl (Zoloft -) 25 mg PO DAILY [facility] Last Admin: 05/02/19 10:32 Dose: 25 mg Gen: Awake and alert, Anxious Heart: RRR Lung: decreased breath sounds at the bases Abd: soft, nontender Ext: no edema Laboratory Results - last 24 hr 05/02/19 05/02/19 05/03/19 06:55 16:40 01:20 WBC RBC Hgb Hct MCV MCH MCHC RDW Plt Count MPV Sodium 141 Potassium 3.3 L Chloride 107 Carbon Dioxide 26 Anion Gap 8 BUN 6.4 L Creatinine 0.7 Est GFR (CKD-EPI)AfAm 105.38 Est GFR (CKD-EPI)NonAf 90.92 POC Glucometer 162 Random Glucose 133 H Calcium 7.9 L Magnesium 1.5 L Iron 34 L TIBC 218 L Iron Saturation 15 L Unsaturated IBC 184 L Troponin I < 0.02 05/03/19 05/03/19 05/03/19 05:44 07:42 07:42 WBC 6.0 RBC 2.64 L Hgb 8.1 L Hct 23.5 L MCV 89.0 MCH 30.7 MCHC 34.5 RDW 12.7 Plt Count 231 MPV 8.5 Sodium 140 Potassium 3.1 L Chloride 104 Carbon Dioxide 30 Anion Gap 7 L BUN 5.6 L Creatinine 0.8 Est GFR (CKD-EPI)AfAm 89.67 Est GFR (CKD-EPI)NonAf 77.37 POC Glucometer 177 Random Glucose 172 H Calcium 8.1 L Magnesium 1.5 L Iron TIBC Iron Saturation Unsaturated IBC Troponin I ASSESSMENT AND PLAN: UTI Gram Negative Bacteremia Septic Shock Acute Kidney Injury improving Lactic Acidosis resolved h/o Vesiculovaginal Fistula HTN DM Hyperlipidemia Anemia - Oxycodone increased to 10mg Q6 PRN - ABX per ID - O2 to keep SpO2 >90% - PO as tolerated - DVT prophylaxis Dr Guerrero
[2019-05-03] MEDS: POLYETHYLENE GLYCOL 3350 119 GM BTL PO SCH (10:34)
[2019-05-03] MEDS ORDERED: INSULIN (NOVOLOG) ASPART 100 UNITS/ML 10ML VIAL ONE (11:07)
[2019-05-03] MEDS ORDERED: oxyCODONE HCL 5 MG TABLET PO PRN (11:26)
--- NOTE | 2019-05-03 12:13 | PN ---
Progress Note, Physician Chief Complaint: patient seen and examined feeling tired and weak got short of breath with chest pain in night - Current Medication List Current Medications: Active Medications Acetaminophen (Tylenol -) 650 mg PO Q6H PRN PRN Reason: FEVER Last Admin: 05/03/19 00:38 Dose: 650 mg Atorvastatin Calcium (Lipitor -) 10 mg PO HS [facility] Last Admin: 05/02/19 21:17 Dose: 10 mg Chlorhexidine Gluconate (Hibiclens For Decolonization -) 1 applic TP HS [facility] Last Admin: 05/02/19 22:05 Dose: Not Given Heparin Sodium (Porcine) (Heparin -) 5,000 unit SQ BID [facility] Last Admin: 05/03/19 10:20 Dose: 5,000 unit Cefazolin Sodium/Dextrose (Ancef 2 Gm Premixed Ivpb -) 2 gm in 50 mls @ 100 mls /hr IVPB Q8H-IV [facility] Last Admin: 05/03/19 10:19 Dose: 100 mls/hr Insulin Aspart (Novolog Vial Sliding Scale -) 1 vial SQ BIDAC [facility]; Protocol Last Admin: 05/03/19 06:29 Dose: 2 units Magnesium Oxide (Mag-Ox -) 400 mg PO BID [facility] Last Admin: 05/03/19 10:19 Dose: 400 mg Oxycodone HCl (Roxicodone -) 10 mg PO Q6H PRN PRN Reason: PAIN LEVEL 6-10 Oxycodone HCl (Roxicodone -) 5 mg PO Q6H PRN PRN Reason: PAIN LEVEL 1-5 Pantoprazole Sodium (Protonix -) 40 mg PO DAILY [facility] Last Admin: 05/03/19 10:19 Dose: 40 mg Polyethylene Glycol (Miralax (For Daily Use) -) 17 gm PO DAILY [facility] Last Admin: 05/03/19 10:34 Dose: Not Given Potassium Chloride (K-Dur -) 10 meq PO DAILY [facility] Last Admin: 05/03/19 10:19 Dose: 10 meq Sertraline HCl (Zoloft -) 25 mg PO DAILY [facility] Last Admin: 05/03/19 10:19 Dose: 25 mg - Objective Vital Signs: Vital Signs Temperature 98.2 F 05/03/19 09:00 Pulse Rate 69 05/03/19 09:00 Respiratory Rate 19 05/03/19 09:00 Blood Pressure 138/58 L 05/03/19 09:00 O2 Sat by Pulse Oximetry (%) 98 05/01/19 21:00 Constitutional: Yes: Calm, Pallor Cardiovascular: Yes: Regular Rate and Rhythm, S1, S2 Respiratory: Yes: CTA Bilaterally Gastrointestinal: Yes: Normal Bowel Sounds, Soft Edema: No Neurological: Yes: Alert, Oriented Labs: CBC, BMP 05/03/19 07:42 05/03/19 07:42 INR, PTT INR 1.13 (0.83-1.09) H 04/25/19 19:28 Problem List - Problems (1) LONG (acute kidney injury) Assessment/Plan: ivf stopped creatinine trendig down Code(s): N17.9 - ACUTE KIDNEY FAILURE, UNSPECIFIED (2) Gram negative sepsis Assessment/Plan: a Microbiology 03/16/19 10:30 Urine - Urine Clean Catch Urine Culture - Final Escherichia Coli 04/25/19 19:32 Blood - Peripheral Venous Blood Culture - Preliminary Pending Organism 04/25/19 19:28 Blood - Peripheral Venous Blood Culture - Preliminary Pending Organism gram negative baccilli iv abx ancef Microbiology 04/25/19 19:28 Blood - Peripheral Venous Blood Culture - Final Escherichia Coli 04/25/19 19:32 Blood - Peripheral Venous Blood Culture - Preliminary Lactose Fermenting Neg Bacilli Code(s): A41.50 - GRAM-NEGATIVE SEPSIS, UNSPECIFIED (3) Hypotension Assessment/Plan: bolus nad ivf at 150cc icu eval for low BP keep MAP> 55 lactic acid improved bicarbonate still low gram negative bacteremia with UTI Code(s): I95.9 - HYPOTENSION, UNSPECIFIED (4) Diabetes Assessment/Plan: sliding scale bgm [id number] 7.4 dc metformin given lactic acidosis on admission hiold oral hypoglycemi medications Code(s): E11.9 - TYPE 2 DIABETES MELLITUS WITHOUT COMPLICATIONS (5) Electrolyte abnormality Assessment/Plan: potassium and magnesium repleted Code(s): E87.8 - OTH DISORDERS OF ELECTROLYTE AND FLUID BALANCE, NEC (6) Anemia Assessment/Plan: iv venofer given today will give rpbc today Code(s): D64.9 - ANEMIA, UNSPECIFIED
--- NOTE | 2019-05-03 13:56 | PN ---
Progress Note, Physician History of Present Illness: Pt seen and examined at bedside. She is awake and alert. She denies shortness of breath. - Current Medication List Current Medications: Active Medications Acetaminophen (Tylenol -) 650 mg PO Q6H PRN PRN Reason: FEVER Last Admin: 05/03/19 00:38 Dose: 650 mg Atorvastatin Calcium (Lipitor -) 10 mg PO HS [facility] Last Admin: 05/02/19 21:17 Dose: 10 mg Chlorhexidine Gluconate (Hibiclens For Decolonization -) 1 applic TP HS [facility] Last Admin: 05/02/19 22:05 Dose: Not Given Heparin Sodium (Porcine) (Heparin -) 5,000 unit SQ BID [facility] Last Admin: 05/03/19 10:20 Dose: 5,000 unit Cefazolin Sodium/Dextrose (Ancef 2 Gm Premixed Ivpb -) 2 gm in 50 mls @ 100 mls /hr IVPB Q8H-IV [facility] Last Admin: 05/03/19 10:19 Dose: 100 mls/hr Insulin Aspart (Novolog Vial Sliding Scale -) 1 vial SQ BIDAC [facility]; Protocol Last Admin: 05/03/19 06:29 Dose: 2 units Magnesium Oxide (Mag-Ox -) 400 mg PO BID [facility] Last Admin: 05/03/19 10:19 Dose: 400 mg Oxycodone HCl (Roxicodone -) 10 mg PO Q6H PRN PRN Reason: PAIN LEVEL 6-10 Oxycodone HCl (Roxicodone -) 5 mg PO Q6H PRN PRN Reason: PAIN LEVEL 1-5 Pantoprazole Sodium (Protonix -) 40 mg PO DAILY [facility] Last Admin: 05/03/19 10:19 Dose: 40 mg Polyethylene Glycol (Miralax (For Daily Use) -) 17 gm PO DAILY [facility] Last Admin: 05/03/19 10:34 Dose: Not Given Potassium Chloride (K-Dur -) 10 meq PO DAILY [facility] Last Admin: 05/03/19 10:19 Dose: 10 meq Sertraline HCl (Zoloft -) 25 mg PO DAILY [facility] Last Admin: 05/03/19 10:19 Dose: 25 mg - Objective Vital Signs: Vital Signs Temperature 98.2 F 05/03/19 09:00 Pulse Rate 69 05/03/19 09:00 Respiratory Rate 19 05/03/19 09:00 Blood Pressure 138/58 L 05/03/19 09:00 O2 Sat by Pulse Oximetry (%) 98 05/01/19 21:00 Constitutional: Yes: Calm Eyes: Yes: Conjunctiva Clear HENT: Yes: Atraumatic Neck: Yes: Supple Cardiovascular: Yes: S1, S2 Respiratory: Yes: CTA Bilaterally Gastrointestinal: Yes: Normal Bowel Sounds, Soft Genitourinary: Yes: WNL Musculoskeletal: Yes: WNL Edema: No Neurological: Yes: Oriented Psychiatric: Yes: Oriented Labs: CBC, BMP 05/03/19 07:42 05/03/19 07:42 INR, PTT INR 1.13 (0.83-1.09) H 04/25/19 19:28 Problem List - Problems (1) LONG (acute kidney injury) Code(s): N17.9 - ACUTE KIDNEY FAILURE, UNSPECIFIED (2) Sepsis Code(s): A41.9 - SEPSIS, UNSPECIFIED ORGANISM Assessment/Plan Current Medications Generic Name Dose Route Start Last Admin Trade Name Freq PRN Reason Stop Dose Admin Acetaminophen 650 mg 04/29/19 14:29 05/03/19 00:38 Tylenol - PO 650 mg Q6H PRN Administration FEVER Atorvastatin Calcium 10 mg 04/29/19 22:00 05/02/19 21:17 Lipitor - PO 10 mg HS [facility] Administration Chlorhexidine Gluconate 1 applic 04/29/19 22:00 05/02/19 22:05 Hibiclens For Decolonization - TP Not Given HS [facility] Heparin Sodium (Porcine) 5,000 unit 04/29/19 22:00 05/03/19 10:20 Heparin - SQ 5,000 unit BID [facility] Administration Cefazolin Sodium/Dextrose 2 gm in 50 mls @ 100 mls/hr 04/29/19 18:00 10:19 Ancef 2 Gm Premixed Ivpb - IVPB 100 mls/hr Q8H-IV [facility] Administration Insulin Aspart 1 vial 04/29/19 16:30 05/03/19 06:29 Novolog Vial Sliding Scale - SQ 2 units BIDAC [facility] Administration Protocol Magnesium Oxide 400 mg 05/03/19 10:00 05/03/19 10:19 Mag-Ox - PO 400 mg BID [facility] Administration Oxycodone HCl 10 mg 05/03/19 11:26 Roxicodone - PO Q6H PRN PAIN LEVEL 6-10 Oxycodone HCl 5 mg 05/03/19 11:26 Roxicodone - PO Q6H PRN PAIN LEVEL 1-5 Pantoprazole Sodium 40 mg 04/30/19 10:00 05/03/19 10:19 Protonix - PO 40 mg DAILY [facility] Administration Polyethylene Glycol 17 gm 04/30/19 10:00 05/03/19 10:34 Miralax (For Daily Use) - PO Not Given DAILY [facility] Potassium Chloride 10 meq 05/02/19 10:00 05/03/19 10:19 K-Dur - PO 10 meq DAILY [facility] Administration Sertraline HCl 25 mg 04/30/19 10:00 05/03/19 10:19 Zoloft - PO 25 mg DAILY [facility] Administration Impression 1. LONG 2. sepsis 3. UTI 4. hypotension 5. anemia 6. vesiculovaginal fistula 7. metabolic acidosis Plan - replace potassium - replace mag - bicarb is improve - renal function stable - repeat labs in am - LONG likely from sepsis and pre-renal disease
--- NOTE | 2019-05-03 14:50 | PN ---
Progress Note (short form) - Note Progress Note: afebrile has wakness, felt sob last night ekg with prolonged qtc last fever 04/28 Vital Signs Period Temp Pulse Resp BP Sys/Alvarez Pulse Ox Last 24 Hr 97.9 F-98.2 F 57-76 19-20 130-138/54-72 cor-rrr llungs clear abd soft,nt-mild pelvic discomfort unchanged ext no edema CBC, BMP 05/03/19 07:42 05/03/19 07:42 Microbiology 04/27/19 16:20 Blood - Peripheral Venous Blood Culture - Final NO GROWTH AFTER 5 DAYS INCUBATION 04/27/19 16:00 Blood - Peripheral Venous Blood Culture - Final NO GROWTH AFTER 5 DAYS INCUBATION 04/25/19 20:22 Urine - Urine Clean Catch Urine Culture - Final Escherichia Coli Enterococcus Faecalis 04/25/19 19:28 Blood - Peripheral Venous Blood Culture - Final Escherichia Coli 04/25/19 19:32 Blood - Peripheral Venous Blood Culture - Preliminary Lactose Fermenting Neg Bacilli a/p gram negative sepsis secondary to UTI/pyelonephritis-ecoli bacteremia- fever curve resolved history of vesicovagianal fistula day #6 cefazolin fevers resolved acidosis resolved prolnged qtc continue cefazolin ?transfer in plans per patient Problem List - Problems (1) Gram negative sepsis Code(s): A41.50 - GRAM-NEGATIVE SEPSIS, UNSPECIFIED (2) Pyelonephritis Code(s): N12 - TUBULO-INTERSTITIAL NEPHRITIS, NOT SPCF ACUTE OR CHRONIC (3) LONG (acute kidney injury) Code(s): N17.9 - ACUTE KIDNEY FAILURE, UNSPECIFIED (4) Vesicovaginal fistula Code(s): N82.0 - VESICOVAGINAL FISTULA
[2019-05-03] MEDS: oxyCODONE HCL 5 MG TABLET PO PRN ×2 (15:16→23:28)
--- NOTE | 2019-05-03 15:34 | EKG ---
Test Reason : Blood Pressure : / mmHG Vent. Rate : 082 BPM Atrial Rate : 082 BPM P-R Int : 124 ms QRS Dur : 078 ms QT Int : 448 ms P-R-T Axes : 038 -31 -12 degrees QTc Int : 523 ms NORMAL SINUS RHYTHM LEFT AXIS DEVIATION LOW VOLTAGE QRS PROLONGED QT ABNORMAL ECG WHEN COMPARED WITH ECG OF 25-APR-2019 19:56, VENT. RATE HAS DECREASED NONSPECIFIC T WAVE ABNORMALITY NO LONGER EVIDENT IN ANTEROLATERAL LEADS QT HAS LENGTHENED Confirmed by EDEL MUÑOZ MD ([id number]) on 05/03/2019 3:34:09 PM Referred By: Confirmed By:EDEL MUÑOZ MD
[2019-05-03] MEDS: CHLORHEXIDINE GLUCONATE 4% CLEANSER FOR DECOLONIZATION TP SCH (22:00)
[2019-05-03] MEDS: ATORVASTATIN CA 10 MG TABLET (FP) PO SCH (22:00)
[2019-05-04] MEDS: CEFAZOLIN 2 GM/D5W 2 GM/50 ML ML IVPB SCH ×3 (01:35→18:39)
[2019-05-04] MEDS: oxyCODONE HCL 5 MG TABLET PO PRN ×2 (06:06→12:11)
[2019-05-04] MEDS: INSULIN SLIDING SCALE (NOVOLOG) 1 VIAL SQ SCH ×2 (06:07→16:37)
[2019-05-04 08:47] LABS: BASO % 0.4 % (0-2.0); EOS % 1.6 % (0-4.5); HEMATOCRIT 22.7 % (32.4-45.2); HEMOGLOBIN 7.8 GM/dL (10.7-15.3); LYMPH % 14.4 % (8-40); MCH 30.6 pg (25.7-33.7); MCHC 34.6 g/dl (32.0-36.0); MEAN CELL VOLUME 88.4 fl (80-96); MEAN PLT VOLUME 8.5 fl (7.5-11.1); MONO % 5.9 % (3.8-10.2); NEUT % 77.7 % (42.8-82.8); PLATELET COUNT 251 K/MM3 (134-434); RBC 2.57 M/mm3 (3.60-5.2); RDW 12.7 % (11.6-15.6); WHITE BLOOD COUNT 7.3 K/mm3 (4.0-10.0)
[2019-05-04 09:16] LABS: ALBUMIN 2.3 g/dl (3.4-5.0); BILIRUBIN,TOTAL 0.5 mg/dL (0.2-1); BLOOD UREA NITROGEN 5.6 mg/dL (7-18); CALCIUM 8.1 mg/dL (8.5-10.1); CREATININE 0.7 mg/dL (0.55-1.3); MAGNESIUM 1.7 mg/dL (1.8-2.4); PHOSPHOROUS 2.3 mg/dL (2.5-4.9); POTASSIUM 3.3 mmol/L (3.5-5.1); TOT PROT 5.8 g/dl (6.4-8.2)
--- NOTE | 2019-05-04 09:31 | PN ---
Progress Note, Physician - Current Medication List Current Medications: Active Medications Acetaminophen (Tylenol -) 650 mg PO Q6H PRN PRN Reason: FEVER Last Admin: 05/03/19 00:38 Dose: 650 mg Atorvastatin Calcium (Lipitor -) 10 mg PO HS [facility] Last Admin: 05/03/19 22:00 Dose: 10 mg Chlorhexidine Gluconate (Hibiclens For Decolonization -) 1 applic TP HS [facility] Last Admin: 05/03/19 22:00 Dose: Not Given Heparin Sodium (Porcine) (Heparin -) 5,000 unit SQ BID [facility] Last Admin: 05/03/19 21:59 Dose: 5,000 unit Cefazolin Sodium/Dextrose (Ancef 2 Gm Premixed Ivpb -) 2 gm in 50 mls @ 100 mls /hr IVPB Q8H-IV [facility] Last Admin: 05/04/19 01:35 Dose: 100 mls/hr Insulin Aspart (Novolog Vial Sliding Scale -) 1 vial SQ BIDAC [facility]; Protocol Last Admin: 05/04/19 06:07 Dose: Not Given Magnesium Oxide (Mag-Ox -) 400 mg PO BID [facility] Last Admin: 05/03/19 22:00 Dose: 400 mg Oxycodone HCl (Roxicodone -) 10 mg PO Q6H PRN PRN Reason: PAIN LEVEL 6-10 Last Admin: 05/04/19 06:06 Dose: 10 mg Oxycodone HCl (Roxicodone -) 5 mg PO Q6H PRN PRN Reason: PAIN LEVEL 1-5 Pantoprazole Sodium (Protonix -) 40 mg PO DAILY [facility] Last Admin: 05/03/19 10:19 Dose: 40 mg Polyethylene Glycol (Miralax (For Daily Use) -) 17 gm PO DAILY [facility] Last Admin: 05/03/19 10:34 Dose: Not Given Potassium Chloride (K-Dur -) 10 meq PO DAILY [facility] Last Admin: 05/03/19 10:19 Dose: 10 meq Sertraline HCl (Zoloft -) 25 mg PO DAILY [facility] Last Admin: 05/03/19 10:19 Dose: 25 mg - Objective Vital Signs: Vital Signs Temperature 98.6 F 05/04/19 06:00 Pulse Rate 63 05/04/19 06:00 Respiratory Rate 18 05/04/19 06:00 Blood Pressure 123/85 05/04/19 06:00 O2 Sat by Pulse Oximetry (%) 98 05/01/19 21:00 Cardiovascular: Yes: Regular Rate and Rhythm Respiratory: Yes: Regular, CTA Bilaterally Gastrointestinal: Yes: Normal Bowel Sounds, Soft Labs: CBC, BMP 05/04/19 07:50 05/04/19 07:50 INR, PTT INR 1.13 (0.83-1.09) H 04/25/19 19:28 Assessment/Plan - Problems (1) LONG (acute kidney injury) Assessment/Plan: ivf stopped creatinine trendig down Code(s): N17.9 - ACUTE KIDNEY FAILURE, UNSPECIFIED (2) Gram negative sepsis Assessment/Plan: a Microbiology 03/16/19 10:30 Urine - Urine Clean Catch Urine Culture - Final Escherichia Coli 04/25/19 19:32 Blood - Peripheral Venous Blood Culture - Preliminary Pending Organism 04/25/19 19:28 Blood - Peripheral Venous Blood Culture - Preliminary Pending Organism gram negative baccilli iv abx ancef--will discuss with id oral Microbiology 04/25/19 19:28 Blood - Peripheral Venous Blood Culture - Final Escherichia Coli 04/25/19 19:32 Blood - Peripheral Venous Blood Culture - Preliminary Lactose Fermenting Neg Bacilli Code(s): A41.50 - GRAM-NEGATIVE SEPSIS, UNSPECIFIED (3) Hypotension Assessment/Plan: Improved stable gram negative bacteremia with UTI Code(s): I95.9 - HYPOTENSION, UNSPECIFIED (4) Diabetes Assessment/Plan: sliding scale bgm hgab1c 7.4 dc metformin given lactic acidosis on admission hiold oral hypoglycemi medications Code(s): E11.9 - TYPE 2 DIABETES MELLITUS WITHOUT COMPLICATIONS (5) Electrolyte abnormality Assessment/Plan: potassium and magnesium repleted Code(s): E87.8 - OTH DISORDERS OF ELECTROLYTE AND FLUID BALANCE, NEC (6) Anemia Assessment/Plan: iv venofer given --transfuse follow labs gi consult Code(s): D64.9 - ANEMIA, UNSPECIFIED (7) Vesicovaginal fistula D/W urology probably close outpatient follow up with Urology at [facility] Code(s): N82.0 - VESICOVAGINAL FISTULA
[2019-05-04] MEDS: MAGNESIUM OXIDE 400 MG TABLET (FP) PO SCH ×2 (10:27→21:41)
[2019-05-04] MEDS: PANTOPRAZOLE 40 MG TABLET (FP) PO SCH (10:27)
[2019-05-04] MEDS: POLYETHYLENE GLYCOL 3350 119 GM BTL PO SCH (10:28)
[2019-05-04] MEDS: SERTRALINE HCL 25 MG TABLET (FP) PO SCH (10:28)
[2019-05-04] MEDS: HEPARIN NA (PORCINE) 5,000 UNITS/ML 1ML VIAL SQ SCH ×2 (10:28→21:42)
[2019-05-04] MEDS: POTASSIUM CHLORIDE TABS 10 MEQ TABLET.ER (FP) PO SCH (10:28)
--- NOTE | 2019-05-04 11:12 | PN ---
Progress Note (short form) - Note Progress Note: Reports feeling about the same. Pain issues, but better. No acute events overnight. Intake & Output 05/01/19 05/02/19 05/03/19 05/04/19 23:59 23:59 23:59 23:59 Intake Total 1340 1740 1310 800 Balance 1340 1740 1310 800 Last Vital Signs Temp Pulse Resp BP Pulse Ox 98.4 F 95 H 20 146/60 98 05/04/19 10:00 05/04/19 10:00 05/04/19 10:00 05/04/19 10:00 05/01/19 21:00 Active Medications Acetaminophen (Tylenol -) 650 mg PO Q6H PRN PRN Reason: FEVER Last Admin: 05/03/19 00:38 Dose: 650 mg Atorvastatin Calcium (Lipitor -) 10 mg PO HS [facility] Last Admin: 05/03/19 22:00 Dose: 10 mg Chlorhexidine Gluconate (Hibiclens For Decolonization -) 1 applic TP [facility] Last Admin: 05/03/19 22:00 Dose: Not Given Heparin Sodium (Porcine) (Heparin -) 5,000 unit SQ BID [facility] Last Admin: 05/04/19 10:28 Dose: 5,000 unit Cefazolin Sodium/Dextrose (Ancef 2 Gm Premixed Ivpb -) 2 gm in 50 mls @ 100 mls /hr IVPB Q8H-IV [facility] Last Admin: 05/04/19 10:26 Dose: 100 mls/hr Potassium Chloride (Potassium Chloride 10 Meq Premix Ivpb -) 10 meq in 100 mls @ 100 mls/hr IVPB Q60M [facility] Stop: 05/04/19 11:44 Insulin Aspart (Novolog Vial Sliding Scale -) 1 vial SQ BIDAC [facility]; Protocol Last Admin: 05/04/19 06:07 Dose: Not Given Magnesium Oxide (Mag-Ox -) 400 mg PO BID [facility] Last Admin: 05/04/19 10:27 Dose: 400 mg Oxycodone HCl (Roxicodone -) 10 mg PO Q6H PRN PRN Reason: PAIN LEVEL 6-10 Last Admin: 05/04/19 06:06 Dose: 10 mg Oxycodone HCl (Roxicodone -) 5 mg PO Q6H PRN PRN Reason: PAIN LEVEL 1-5 Pantoprazole Sodium (Protonix -) 40 mg PO DAILY [facility] Last Admin: 05/04/19 10:27 Dose: 40 mg Polyethylene Glycol (Miralax (For Daily Use) -) 17 gm PO DAILY [facility] Last Admin: 05/04/19 10:28 Dose: Not Given Potassium Chloride (K-Dur -) 10 meq PO DAILY [facility] Last Admin: 05/04/19 10:28 Dose: 10 meq Sertraline HCl (Zoloft -) 25 mg PO DAILY [facility] Last Admin: 05/04/19 10:28 Dose: 25 mg Gen: Awake and alert, NAD Heart: RRR Lung: decreased breath sounds at the bases Abd: soft, nontender Ext: no edema Laboratory Results - last 24 hr 05/03/19 05/03/19 05/03/19 11:17 12:47 16:58 WBC RBC Hgb Hct MCV MCH MCHC RDW Plt Count MPV Absolute Neuts (auto) Neutrophils % Lymphocytes % Monocytes % Eosinophils % Basophils % Nucleated RBC % Sodium Potassium Chloride Carbon Dioxide Anion Gap BUN Creatinine Est GFR (CKD-EPI)AfAm Est GFR (CKD-EPI)NonAf POC Glucometer 272 187 Random Glucose Calcium Phosphorus Magnesium Total Bilirubin AST ALT Alkaline Phosphatase Total Protein Albumin Blood Type A POSITIVE Antibody Screen Negative Crossmatch See Detail 05/04/19 05/04/19 05/04/19 05:54 07:50 07:50 WBC 7.3 RBC 2.57 L Hgb 7.8 L Hct 22.7 L MCV 88.4 MCH 30.6 MCHC 34.6 RDW 12.7 Plt Count 251 MPV 8.5 Absolute Neuts (auto) 5.7 Neutrophils % 77.7 Lymphocytes % 14.4 D Monocytes % 5.9 Eosinophils % 1.6 Basophils % 0.4 Nucleated RBC % 0 Sodium 139 Potassium 3.3 L Chloride 103 Carbon Dioxide 29 Anion Gap 7 L BUN 5.6 L Creatinine 0.7 Est GFR (CKD-EPI)AfAm 105.38 Est GFR (CKD-EPI)NonAf 90.92 POC Glucometer 130 Random Glucose 147 H Calcium 8.1 L Phosphorus 2.3 L Magnesium 1.7 L Total Bilirubin 0.5 AST 25 ALT 12 L Alkaline Phosphatase 83 Total Protein 5.8 L Albumin 2.3 L Blood Type Antibody Screen Crossmatch ASSESSMENT AND PLAN: UTI Gram Negative Bacteremia Septic Shock Acute Kidney Injury improving Lactic Acidosis resolved h/o Vesiculovaginal Fistula HTN DM Hyperlipidemia Anemia - Oxycodone PRN - ABX per ID - O2 to keep SpO2 >90% - PO as tolerated - DVT prophylaxis Dr Guerrero
[2019-05-04] MEDS: KCL 10 MEQ IVPB 10 MEQ/100 ML INFUS.BAG IVPB SCH ×2 (11:28→12:39)
--- NOTE | 2019-05-04 15:32 | CONS ---
GASTROINTESTINAL CONSULTATION DATE OF CONSULTATION: DATE OF DICTATION: 05/04/2019 HISTORY: Patient is a 63-year-old female past medical history of hypertension, hyperlipidemia, diabetes, vesicovaginal fistula, recurrent multidrug-resistant urinary tract infection who was admitted to the hospital with fever. She has been treated for sepsis urinary tract infection during the course as well as acute kidney injury. During the course, she was noted to be anemic with hemoglobins over the past week between 7.9 to 8. As per the patient, she denies any abdominal pain, nausea, vomiting, diarrhea, constipation, melena, hematochezia, or hematemesis. She has never had a colonoscopy in the past. PAST MEDICAL HISTORY: As listed in the HPI. PAST SURGICAL HISTORY: As listed in the HPI. With the addition of cholecystectomy, hernia repair, hysterectomy, and tubal ligation. ALLERGIES: Contrast and morphine. HOME MEDICATIONS: Reviewed include glyburide, Antivert, ramipril, Zocor, metformin, Toradol, and Zoloft. SOCIAL HISTORY: Does not drink, smoke, or use drugs. FAMILY HISTORY: No history of GI or gynecological malignancy. REVIEW OF SYSTEMS: As per the HPI. PHYSICAL EXAMINATION: Vital Signs: Temperature 97, pulse 80, blood pressure 105/46, respiratory rate 12, oxygen saturation 98% on room air. General: In no acute distress. HEENT: Anicteric sclerae. Cardiovascular: S1, S2. Regular rate and rhythm. Lungs: Bilaterally clear to auscultation. Abdomen: Soft and nontender. Extremities: Without edema. LABORATORIES: White blood cell count 7.3, hemoglobin 7.8, hematocrit 22, MCV 88, platelet count 251, INR 1.1. Sodium 139, potassium 3.3, BUN 5.6, creatinine 0.7, glucose 147, total bilirubin 0.5, AST 25, ALT 12, alkaline phosphatase 83. UA was positive on the 1st. Toxicology screen was positive for opiates on the . E. coli grew out of the blood and urine cultures. She had an abdomen and pelvis CT scan done on the 24 of January without contrast, which revealed fecal retention. No evidence of acute pathology. IMPRESSION: Normocytic anemia most likely secondary chronic disease, however, gastrointestinal blood loss cannot be excluded at this time. RECOMMENDATION: Stool for occult blood. Trend hemoglobin and hematocrit daily while hospitalized. Avoid NSAIDs. Diet as tolerated. Continue antibiotic regimen for urosepsis. Also she would need cardiology risk stratification prior to any invasive procedures for now considering she has no sign of acute blood loss. Conservative management should be maintained. Endoscopic procedures were discussed with the patient. Also at this time, she would prefer to not have an upper endoscopy or colonoscopy. We will follow this patient. DO MACIEL CARDENAS/[id number]
[2019-05-04] MEDS ORDERED: MAGNESIUM SULF 50% (8.12 MEQ/2 ML-1 GM VIAL) IVPB ONE (16:36)
--- NOTE | 2019-05-04 16:39 | PN ---
Progress Note, Physician History of Present Illness: Pt seen and examined at bedside. She is awake and alert. She denies shortness of breath. - Current Medication List Current Medications: Active Medications Acetaminophen (Tylenol -) 650 mg PO Q6H PRN PRN Reason: FEVER Last Admin: 05/03/19 00:38 Dose: 650 mg Atorvastatin Calcium (Lipitor -) 10 mg PO HS [facility] Last Admin: 05/03/19 22:00 Dose: 10 mg Chlorhexidine Gluconate (Hibiclens For Decolonization -) 1 applic TP HS [facility] Last Admin: 05/03/19 22:00 Dose: Not Given Heparin Sodium (Porcine) (Heparin -) 5,000 unit SQ BID [facility] Last Admin: 05/04/19 10:28 Dose: 5,000 unit Cefazolin Sodium/Dextrose (Ancef 2 Gm Premixed Ivpb -) 2 gm in 50 mls @ 100 mls /hr IVPB Q8H-IV [facility] Last Admin: 05/04/19 10:26 Dose: 100 mls/hr Insulin Aspart (Novolog Vial Sliding Scale -) 1 vial SQ BIDAC [facility]; Protocol Last Admin: 05/04/19 06:07 Dose: Not Given Magnesium Oxide (Mag-Ox -) 400 mg PO BID [facility] Last Admin: 05/04/19 10:27 Dose: 400 mg Magnesium Sulfate (Magnesium Sulfate) 2 gm IVPB ONCE ONE Stop: 05/04/19 16:37 Oxycodone HCl (Roxicodone -) 10 mg PO Q6H PRN PRN Reason: PAIN LEVEL 6-10 Last Admin: 05/04/19 12:11 Dose: 10 mg Oxycodone HCl (Roxicodone -) 5 mg PO Q6H PRN PRN Reason: PAIN LEVEL 1-5 Pantoprazole Sodium (Protonix -) 40 mg PO DAILY [facility] Last Admin: 05/04/19 10:27 Dose: 40 mg Polyethylene Glycol (Miralax (For Daily Use) -) 17 gm PO DAILY [facility] Last Admin: 05/04/19 10:28 Dose: Not Given Sertraline HCl (Zoloft -) 25 mg PO DAILY [facility] Last Admin: 05/04/19 10:28 Dose: 25 mg - Objective Vital Signs: Vital Signs Temperature 97.9 F 05/04/19 13:51 Pulse Rate 80 05/04/19 13:51 Respiratory Rate 20 05/04/19 13:51 Blood Pressure 105/46 L 05/04/19 13:51 O2 Sat by Pulse Oximetry (%) 98 05/01/19 21:00 Constitutional: Yes: Calm Eyes: Yes: Conjunctiva Clear HENT: Yes: Atraumatic Neck: Yes: Supple Cardiovascular: Yes: S1, S2 Respiratory: Yes: CTA Bilaterally Gastrointestinal: Yes: Normal Bowel Sounds, Soft Genitourinary: Yes: WNL Musculoskeletal: Yes: WNL Edema: No Neurological: Yes: Oriented Psychiatric: Yes: Oriented Labs: CBC, BMP 05/04/19 07:50 05/04/19 07:50 INR, PTT INR 1.13 (0.83-1.09) H 04/25/19 19:28 Problem List - Problems (1) LONG (acute kidney injury) Code(s): N17.9 - ACUTE KIDNEY FAILURE, UNSPECIFIED (2) Sepsis Code(s): A41.9 - SEPSIS, UNSPECIFIED ORGANISM Assessment/Plan Current Medications Generic Name Dose Route Start Last Admin Trade Name Freq PRN Reason Stop Dose Admin Acetaminophen 650 mg 04/29/19 14:29 05/03/19 00:38 Tylenol - PO 650 mg Q6H PRN Administration FEVER Atorvastatin Calcium 10 mg 04/29/19 22:00 05/03/19 22:00 Lipitor - PO 10 mg HS [facility] Administration Chlorhexidine Gluconate 1 applic 04/29/19 22:00 05/03/19 22:00 Hibiclens For Decolonization - TP Not Given HS [facility] Heparin Sodium (Porcine) 5,000 unit 04/29/19 22:00 05/04/19 10:28 Heparin - SQ 5,000 unit BID [facility] Administration Cefazolin Sodium/Dextrose 2 gm in 50 mls @ 100 mls/hr 04/29/19 18:00 10:26 Ancef 2 Gm Premixed Ivpb - IVPB 100 mls/hr Q8H-IV [facility] Administration Insulin Aspart 1 vial 04/29/19 16:30 05/04/19 06:07 Novolog Vial Sliding Scale - SQ Not Given BIDAC [facility] Protocol Magnesium Oxide 400 mg 05/03/19 10:00 05/04/19 10:27 Mag-Ox - PO 400 mg BID [facility] Administration Magnesium Sulfate 2 gm 05/04/19 16:36 Magnesium Sulfate IVPB 05/04/19 16:37 ONCE ONE Oxycodone HCl 10 mg 05/03/19 11:26 05/04/19 12:11 Roxicodone - PO 10 mg Q6H PRN Administration PAIN LEVEL 6-10 Oxycodone HCl 5 mg 05/03/19 11:26 Roxicodone - PO Q6H PRN PAIN LEVEL 1-5 Pantoprazole Sodium 40 mg 04/30/19 10:00 05/04/19 10:27 Protonix - PO 40 mg DAILY [facility] Administration Polyethylene Glycol 17 gm 04/30/19 10:00 05/04/19 10:28 Miralax (For Daily Use) - PO Not Given DAILY [facility] Potassium Chloride 20 meq 05/04/19 16:37 K-Dur - PO DAILY [facility] Sertraline HCl 25 mg 04/30/19 10:00 05/04/19 10:28 Zoloft - PO 25 mg DAILY [facility] Administration Impression 1. LONG 2. sepsis 3. UTI 4. hypotension 5. anemia 6. vesiculovaginal fistula 7. metabolic acidosis Plan - replace potassium and mag - renal function stable - repeat labs in am - LONG likely from sepsis and pre-renal disease
[2019-05-04] MEDS: ACETAMINOPHEN 325 MG TABLET (FP) PO PRN (16:40)
--- NOTE | 2019-05-04 17:04 | PN ---
Progress Note (short form) - Note Progress Note: feels well chronic abdominal pain unchanged Vital Signs Period Temp Pulse Resp BP Sys/Alvarez Pulse Ox Last 24 Hr 97.9 F-98.6 F 63-95 18-20 105-146/46-85 cor-rrr lungs clear abd soft,mild pelvic discomfort to palpation ext no edema CBC, BMP 05/04/19 07:50 05/04/19 07:50 Microbiology 04/25/19 19:32 Blood - Peripheral Venous Blood Culture - Final Escherichia Coli 04/27/19 16:20 Blood - Peripheral Venous Blood Culture - Final NO GROWTH AFTER 5 DAYS INCUBATION 04/27/19 16:00 Blood - Peripheral Venous Blood Culture - Final NO GROWTH AFTER 5 DAYS INCUBATION 04/25/19 20:22 Urine - Urine Clean Catch Urine Culture - Final Escherichia Coli Enterococcus Faecalis 04/25/19 19:28 Blood - Peripheral Venous Blood Culture - Final Escherichia Coli a/p gram negative sepsis secondary to UTI/pyelonephritis-ecoli bacteremia- fever curve resolved history of vesicovagianal fistula day #67 cefazolin fevers resolved acidosis resolved prolonged qtc can switch to po bactrim in am for another 7 days should f/u with her urologist please call back if needed Problem List - Problems (1) Gram negative sepsis Code(s): A41.50 - GRAM-NEGATIVE SEPSIS, UNSPECIFIED (2) Pyelonephritis Code(s): N12 - TUBULO-INTERSTITIAL NEPHRITIS, NOT SPCF ACUTE OR CHRONIC (3) LONG (acute kidney injury) Code(s): N17.9 - ACUTE KIDNEY FAILURE, UNSPECIFIED (4) Vesicovaginal fistula Code(s): N82.0 - VESICOVAGINAL FISTULA
[2019-05-04] MEDS: CHLORHEXIDINE GLUCONATE 4% CLEANSER FOR DECOLONIZATION TP SCH (21:41)
[2019-05-04] MEDS: ATORVASTATIN CA 10 MG TABLET (FP) PO SCH (21:41)
[2019-05-05] MEDS: CEFAZOLIN 2 GM/D5W 2 GM/50 ML ML IVPB SCH ×2 (01:33→09:28)
[2019-05-05] MEDS: oxyCODONE HCL 5 MG TABLET PO PRN (03:07)
[2019-05-05] MEDS: INSULIN SLIDING SCALE (NOVOLOG) 1 VIAL SQ SCH (06:12)
[2019-05-05 09:29] LABS: BASO % 0.4 % (0-2.0); EOS % 1.5 % (0-4.5); HEMATOCRIT 23.8 % (32.4-45.2); HEMOGLOBIN 8.1 GM/dL (10.7-15.3); LYMPH % 16.6 % (8-40); MCH 30.6 pg (25.7-33.7); MCHC 34.1 g/dl (32.0-36.0); MEAN CELL VOLUME 89.7 fl (80-96); MEAN PLT VOLUME 8.5 fl (7.5-11.1); MONO % 5.6 % (3.8-10.2); NEUT % 75.9 % (42.8-82.8); PLATELET COUNT 268 K/MM3 (134-434); RBC 2.66 M/mm3 (3.60-5.2); RDW 12.8 % (11.6-15.6); WHITE BLOOD COUNT 7.6 K/mm3 (4.0-10.0)
[2019-05-05] MEDS: HEPARIN NA (PORCINE) 5,000 UNITS/ML 1ML VIAL SQ SCH (09:29)
[2019-05-05] MEDS: MAGNESIUM OXIDE 400 MG TABLET (FP) PO SCH (09:32)
[2019-05-05] MEDS: PANTOPRAZOLE 40 MG TABLET (FP) PO SCH (09:32)
[2019-05-05] MEDS: SERTRALINE HCL 25 MG TABLET (FP) PO SCH (09:32)
[2019-05-05] MEDS: POLYETHYLENE GLYCOL 3350 119 GM BTL PO SCH (09:32)
[2019-05-05] MEDS ORDERED: POTASSIUM CHLORIDE TABS 20 MEQ TABLET.ER (FP) PO SCH (10:00)
[2019-05-05 10:04] VITALS: BP 118/53; PULSE 75; TEMP 98.3
[2019-05-05 10:35] LABS: ALBUMIN 2.4 g/dl (3.4-5.0); BILIRUBIN,TOTAL 0.2 mg/dL (0.2-1); BLOOD UREA NITROGEN 6.8 mg/dL (7-18); CALCIUM 8.1 mg/dL (8.5-10.1); CREATININE 0.8 mg/dL (0.55-1.3); MAGNESIUM 1.9 mg/dL (1.8-2.4); TOT PROT 6.3 g/dl (6.4-8.2)
--- NOTE | 2019-05-05 11:13 | DS ---
Physical Examination Vital Signs: Vital Signs Temperature 98.3 F 05/05/19 10:00 Pulse Rate 75 05/05/19 10:00 Respiratory Rate 20 05/05/19 10:00 Blood Pressure 118/53 L 05/05/19 10:00 O2 Sat by Pulse Oximetry (%) 96 05/04/19 21:00 Constitutional: Yes: No Distress Cardiovascular: Yes: Regular Rate and Rhythm Respiratory: Yes: WNL Gastrointestinal: Yes: Normal Bowel Sounds, Soft Musculoskeletal: Yes: WNL Edema: No Labs: CBC, BMP 05/05/19 08:30 05/05/19 08:30 Discharge Summary Problems reviewed: Yes Reason For Visit: FEVER/BODY PAIN Current Active Problems OLNG (acute kidney injury) (Acute) Anemia (Acute) Constipation (Acute) Depression (Acute) Diabetes (Acute) Electrolyte abnormality (Acute) Gram negative sepsis (Acute) HLD (hyperlipidemia) (Acute) HTN (hypertension) (Acute) Hematuria (Acute) Hyponatremia (Acute) Hypotension (Acute) Lactic acidosis (Acute) Nausea (Acute) Pyelonephritis (Acute) Sepsis (Acute) Procedures: Principal: CT SCAN/LABS/CULTURES Hospital Course: ADMITTED FOR VESICULOURETHRAL FISTULA SEPSIS, RIGHT INGUINAL HERNIA, TREATED IN ICU FOR SEPSIS HYPOTENSION SHOCK, FEELING BETTER AND NOW WILL F/U WITH [facility] IN 2-3 WEEKS FOR SURGERY OUTPATIENT ONCE INFECTION FULLY HEALED. ON BACTRIM DS BIS 7 DAYS OUTPATIENT Plan of Treatment: 7 DAYS BACTRIM DS 2 X DAY Goals: SEE [facility] P[facility]ERSEN AT [address] [address] APPT IS IN 2 WEEKS Condition: Stable - Instructions Diet, Activity, Other Instructions: SEE [facility] AT [address] , [place], [place] [id number] APPT IS IN 2 WEEKS Referrals: Ariel Iqbal MD [Primary Care Provider] - Disposition: VNS/HOME HEALTH CARE - Home Medications Comprehensive Discharge Medication List: Ambulatory Orders Glyburide 5 mg PO BID 01/16/13 Meclizine HCl [Antivert -] 12.5 mg PO TID #10 tablet 01/16/13 Ramipril 5 mg PO DAILY 01/16/13 Simvastatin [Zocor -] 20 mg PO HS 01/16/13 metFORMIN HCL [Glucophage] 1,000 mg PO BID 01/16/13 Ketorolac Tromethamine [Toradol -] 10 mg PO Q6H #30 tablet 01/15/19 Oxycodone HCl 10 mg PO TID 04/28/19 Acetaminophen [Tylenol .Regular Strength -] 650 mg PO Q6H PRN tablet 05/05/19 Magnesium Oxide [Mag-Ox -] 400 mg PO BID tablet 05/05/19 Pantoprazole Sodium [Protonix -] 40 mg PO DAILY #30 tablet.ec 05/05/19 Polyethylene Glycol 3350 [Miralax 119 gm Btl -] 17 gm PO DAILY #1 bottle Potassium Chloride [K-Dur -] 10 meq PO DAILY #30 tablet.er 05/05/19 Sertraline HCl [Zoloft -] 25 mg PO DAILY #30 tablet 05/05/19 Sulfamethoxazole/Trimethoprim [Bactrim Ds Tablet] 1 each PO BID #14 tablet 05/05 Prescription Drug Monitoring Program (I-STOP) results: I-STOP reviewed and issues identified
--- NOTE | 2019-05-05 12:20 | PN.GI ---
GI Progress Note Subjective: pt seen/examined at bedside, sitting up eating lunch, being discharged today. Feeling better, denies abdominal pain or blood in stools. - Objective Vital Signs: Vital Signs Temperature 98.3 F 05/05/19 10:00 Pulse Rate 75 05/05/19 10:00 Respiratory Rate 20 05/05/19 10:00 Blood Pressure 118/53 L 05/05/19 10:00 O2 Sat by Pulse Oximetry (%) 96 05/04/19 21:00 Constitutional: Well Nourished, No Distress, Calm Cardiovascular: Yes: WNL, Regular Rate and Rhythm Respiratory: Yes: WNL, Regular, CTA Bilaterally ...Palpate: Yes: Other (Abd soft, nt, nd) Labs: CBC, BMP 05/05/19 08:30 05/05/19 08:30 INR, PTT INR 1.13 (0.83-1.09) H 04/25/19 19:28 Problem List - Problems (1) Anemia Assessment/Plan: 63yo female h/o DM, HTN presenting with fevers being treated for UTI with anemia. Likely anemia of chronic disease though component of iron deficiency and cannot exclude occult bleeding source. No overt bleeding. No prior colonoscopy. Pt being discharged today. -Discussed risk/benefits of endoscopic evaluation for evaluation of anemia and also for screening purposes. Pt verbalized understanding and refusing at this time, also declines GI appt, states she will discuss further with her PMD. Possibility of missed lesions and importance of follow up advised. -Monitor Hb and for evidence of overt bleeding -Further management of vesicovaginal fistula per urology recommendations Code(s): D64.9 - ANEMIA, UNSPECIFIED Qualifiers: Anemia type: unspecified type Qualified Code(s): D64.9 - Anemia, unspecified
--- NOTE | 2019-05-05 13:39 | PN ---
Progress Note, Physician History of Present Illness: Pt seen and examined at bedside. She is awake and alert. She denies shortness of breath. - Objective Vital Signs: Vital Signs Temperature 98.3 F 05/05/19 10:00 Pulse Rate 75 05/05/19 10:00 Respiratory Rate 20 05/05/19 10:00 Blood Pressure 118/53 L 05/05/19 10:00 O2 Sat by Pulse Oximetry (%) 96 05/04/19 21:00 Constitutional: Yes: Calm Eyes: Yes: Conjunctiva Clear HENT: Yes: Atraumatic Neck: Yes: Supple Cardiovascular: Yes: S1, S2 Respiratory: Yes: CTA Bilaterally Gastrointestinal: Yes: Soft Genitourinary: Yes: WNL Musculoskeletal: Yes: WNL Edema: No Neurological: Yes: Oriented Psychiatric: Yes: Oriented Labs: CBC, BMP 05/05/19 08:30 05/05/19 08:30 INR, PTT INR 1.13 (0.83-1.09) H 04/25/19 19:28 Problem List - Problems (1) LONG (acute kidney injury) Code(s): N17.9 - ACUTE KIDNEY FAILURE, UNSPECIFIED (2) Sepsis Code(s): A41.9 - SEPSIS, UNSPECIFIED ORGANISM Assessment/Plan Impression 1. LONG 2. sepsis 3. UTI 4. hypotension 5. anemia 6. vesiculovaginal fistula 7. metabolic acidosis Plan - replace potassium - cont potassium and mag - renal function stable - repeat labs in am - LONG likely from sepsis and pre-renal disease - explained to pt that potassium should be monitored closely as outpt
== END 2019-05-05 13:03 | disposition home or self-care (01) | DRG 871 ==
LOC: JER 19:03 → JERBED 20:41 → J5S 04-26 02:41 → JICU 04-26 14:40 → J6S 04-29 15:14
PROVIDERS: ADMIT Internal Medicine; ATTEND Family Medicine
PROC: 05HM33Z Insertion of Infusion Device into Right Internal Jugular Vein, Percutaneous Approach (ICD-10-PCS; principal; 2019-04-26)
PROC: B513ZZA Fluoroscopy of Right Jugular Veins, Guidance (ICD-10-PCS; 2019-04-26)
DX: A41.51 Sepsis due to Escherichia coli [E. coli] (principal); R65.21 Severe sepsis with septic shock; N82.0 Vesicovaginal fistula; N39.0 Urinary tract infection, site not specified; E87.2 Acidosis; N17.9 Acute kidney failure, unspecified; E87.1 Hypo-osmolality and hyponatremia; J98.11 Atelectasis; R18.8 Other ascites; I10 Essential (primary) hypertension; E78.5 Hyperlipidemia, unspecified; E11.9 Type 2 diabetes mellitus without complications; K44.9 Diaphragmatic hernia without obstruction or gangrene; F32.9 Major depressive disorder, single episode, unspecified; B96.20 Unspecified Escherichia coli [E. coli] as the cause of diseases classified elsewhere; R11.0 Nausea; I95.9 Hypotension, unspecified; D64.9 Anemia, unspecified; K59.09 Other constipation; R31.9 Hematuria, unspecified; R94.31 Abnormal electrocardiogram [ECG] [EKG]; E87.8 Other disorders of electrolyte and fluid balance, not elsewhere classified; D72.829 Elevated white blood cell count, unspecified; M51.36 Other intervertebral disc degeneration, lumbar region; K40.90 Unilateral inguinal hernia, without obstruction or gangrene, not specified as recurrent
CPT/HCPCS: 36415; 71045-TC-FY; 74176-TC; 76775-TC; 76882-TC-RT-FY; 80048; 80053; 80061; 80307; 81003; 82436; 82565; 82962; 83036; 83540; 83550; 83605; 83721; 83735; 84100; 84133; 84300; 84484; 85025; 85027; 85610; 85730; 86850; 86900; 86901; 86922; 87040; 87086; 87186; 93005; 93010; 97116-GP; 97161-GP; 99283-25; J0131; J1644; J1756; J7030